=== PATIENT | female | born 1960 | race Caucasian/White ===

== ENCOUNTER → 2016-11-12 | Outpatient (CLI) | payer OTHER ==
[~2016-11-12] MED LIST: ABILIFY1 MG/ML PO; ABILIFY30 MG PO; ASPIRIN81 M1 PO; ATIVAN2 MG PO; BACTRIM DS 8001 TA1 PO; BACTROBAN OINT22 GM PO; BENTYL10 MG PO; BENTYL20 MG PO; BIAXIN500 MG PO; CARAFATE1 G1 PO; CEFTIN500 MG PO; CILOXAN 5 ML5 M1 OP; CILOXAN 5 ML5 M1 OT; CIPRO500 MG PO; CLARITIN10 MG PO; CLINDAMYCIN150 MG PO; CRESTOR10 MG PO; DIAZEPAM2 MG PO; DUONEB 3 MG/3 ML3 M1 NEB; EFFEXOR XR150 M1 PO; FLONASE 0.05% 121 EA NAS; FLUARIX IM; GOOD SENSE ALLE10 MG PO; LEVAQUIN750 M1 PO; LEVAQUIN750 MG PO; LEVOFLOXACIN500 MG PO; MEDROL DOSEPAK4 MG PO; METFORMIN HYDR500 M1 PO; MOTRIN800 MG PO; MUCINEX600 MG PO; NABUMETONE500 M1 PO; NAPROXEN500 M1 PO; OMEPRAZOLE D/R20 MG PO; OXYCODONE AND A1 T11 PO; PANTOPRAZOLE SO40 MG PO; PERCOCET 325 MG1 TA2 PO; PERCOCET 325 MG1 TA7 PO; PHENERGAN W/DM120 ML PO; PHENERGAN25 MG RC; PNEUMOVAX IM; PREDNICOT10 MG PO; PREDNISONE10 MG PO; PREDNISONE5 MG PO; PRILOSEC20 M1 PO; PROAIR HFA0.09 MG/AC INH; PROMETH W/ DEX480 ML PO; PROTONIX20 MG PO; PROTONIX40 MG PO; PROVENTIL0.09 MG/AC IH; PROVENTIL0.09 MG/AC INH; ROBAXIN750 MG PO; ROBITUSSIN AC 110 ML PO; SEPTRA DS 800 M1 TAB PO; SIMVASTATIN20 MG PO; SYNTHROID0.025 MG PO; SYNTHROID0.05 MG PO; TORADOL10 MG PO; TRAMADOL HCL50 MG PO; TRAZADONE HYDR100 MG PO; VALIUM10 MG PO; VIBRAMYCIN100 MG PO; VICODIN 5/500 505 MG PO; VITAMIN D2; XANAX1 MG PO; ZANTAC 150150 MG PO; ZESTRIL20 MG PO; ZITHROMAX Z PA250 MG PO; ZITHROMAX250 MG PO
[2016-11-12 15:32] LABS: BILIRUBIN NEGATIVE (NEGATIVE); BLOOD TRACE-LYSED (NEGATIVE); CLARITY CLEAR (CLEAR); COLOR YELLOW (YELLOW); GLUCOSE NEGATIVE (NEGATIVE); KETONE NEGATIVE (NEGATIVE); LEUKO ESTERASE 2+ (NEGATIVE); NITRITE NEGATIVE (NEGATIVE); PH 7.5 (5.0-9.0); UROBILINOGEN 0.2 E.U./dl (0.2-1.0)
[2016-11-12 15:42] LABS: BACTERIA 4+; RBC 0-2 rbc/hpf (0-2); WBC 21-30 wbc/hpf (0-5)
== END | disposition home or self-care (01) ==
LOC: US 11-05 13:00 → LAB 14:43 → US 15:00
PROVIDERS: Urology
DX: N39.0 Urinary tract infection, site not specified (principal); R32 Unspecified urinary incontinence

== ENCOUNTER 2017-04-02 06:08 | Inpatient (IN) | payer OTHER ==
[~2017-04-02] VITALS: Ht 167.6 cm; Wt 109.5 kg
--- NOTE | ~2017-04-02 | PR ---
[place], [place] PROGRESS NOTE NAME: RICHARDSON LOPEZ UNIT #: [id number] ROOM: 407 DOCTOR: ASIA SALAZAR MD BIRTHDATE: [birth year] DOS: 04/04/2017 SUBJECTIVE: The patient was seen at her bedside today, 04/04/2017, for followup of nonsustained ventricular tachycardia. She is a 56-year-old woman who presented to the hospital with recurrent respiratory distress and failure. On the monitor, she was noted to have frequent PVCs with couplets, triplets and 111 beat run of nonsustained ventricular tachycardia. We were asked to see her for further assessment. Thus far, she shows no signs of myocardial injury and her electrocardiogram shows no acute changes. PHYSICAL EXAMINATION: VITAL SIGNS: Her pulse is 76 and regular, blood pressure is 132/70. She weighs 109.5 kg and has a body mass index of 39. HEENT: Normocephalic and atraumatic. Extraocular muscles are intact. Sclerae are clear. Pupils are round and react to light. The oral mucosa is moist. Tongue is midline. NECK: Supple. She has no jugular distention. Carotids are full. I heard no bruits. She had no neck or supraclavicular masses, no thyromegaly. LUNGS: Respirations are unlabored. Her chest is clear to auscultation and percussion. She has no presacral edema. HEART: Has a regular rhythm. She has an S4 gallop, but no S3 or murmur. ABDOMEN: Benign. EXTREMITIES: Showed no edema. IMPRESSION: 1. Nonsustained ventricular tachycardia. 2. Acute exacerbation of chronic obstructive lung disease. 3. Hyperglycemia. 4. Hypertension. 5. Hyperlipidemia. PLAN: For now, we will continue to observe her as her lung problems are being treated. She was once again advised to quit smoking. We will continue to follow her intermittently in the hospital. Once she has fully stabilized from a pulmonary standpoint, we will plan on a pharmacologic stress test in order to determine if she has an ischemic substrate for her arrhythmias. I thank Dr. Dumont for asking our advice regarding management of this patient. [place], [place] PROGRESS NOTE NAME: RICHARDSON LOPEZ UNIT #: [id number] ROOM: 407 DOCTOR: ASIA SALAZAR MD BIRTHDATE: [birth year] ASIA SALAZAR MD CM:PNTRANS [id number] ASIA SALAZAR MD 04/04/172236 interface
--- NOTE | ~2017-04-02 | PR ---
[place], [place] PROGRESS NOTE [id number] UNIT #: [id number] ROOM: 407 DOCTOR: ASIA SALAZAR MD BIRTHDATE: [birth year] DOS: 04/05/2017 SUBJECTIVE: The patient was seen at her bedside today 04/05/2017 for followup of an episode of nonsustained ventricular tachycardia. She is a 56-year-old woman with multiple coronary risk factors who presented to the hospital with respiratory distress and respiratory failure. On the monitor, she was noted to have frequent PVCs with couplets, triplets and an 11-beat run of nonsustained ventricular tachycardia. We were asked to see her for further assessment. She showed no signs of myocardial injury and her electrocardiogram showed no acute ST changes. Her breathing has improved, but she is still wheezing. She still has a significant cough. PHYSICAL EXAMINATION: VITAL SIGNS: Today, her pulse is 68 and regular with frequent premature beats. Blood pressure is 96/74. She is afebrile, pulse oximetry is 100 on supplemental oxygen. She weighs 109.5 kilograms with a body mass index of 39. HEENT: Normocephalic and atraumatic. Extraocular muscles are intact. Sclerae are clear. Pupils are equal, round and react to light. The oral mucosa is moist. Tongue is midline. NECK: Supple. She has no jugular distention. Carotids are full. LUNGS: Respirations are unlabored. She does have scattered wheezes, but no rales. She has no presacral edema. HEART: Has a regular rhythm with frequent premature contractions. She has a fourth heart sound, but no third heart sound or murmur. ABDOMEN: Soft and normally active. EXTREMITIES: Showed no edema. IMPRESSIONS: 1. Nonsustained ventricular tachycardia. 2. Acute exacerbation of chronic obstructive lung disease. 3. Hyperglycemia. 4. Hypertension. 5. Hyperlipidemia. PLAN: We will proceed with an echocardiogram to rule out structural heart disease. Once she is feeling better from a cardiac standpoint, we will arrange for her to have a pharmacologic stress test. This may be done as an outpatient or later during this hospitalization if needed. I thank Dr. Dumont for asking our advice regarding the patient's care. [place], [place] PROGRESS NOTE NAME: RICHARDSON LOPEZ UNIT #: [id number] ROOM: 407 DOCTOR: ASIA SALAZAR MD BIRTHDATE: [birth year] ASIA SALAZAR MD CM:PNTRANS 1626 20 ASIA SALAZAR MD 04/05/172220 interface
--- NOTE | ~2017-04-02 | PR ---
[place], [place] PROGRESS NOTE NAME: RICHARDSON LOPEZ [facility] #: [id number] UNIT #: [id number] ROOM: 407 DOCTOR: CHEMA HERMOSILLO MD BIRTHDATE: [birth year] DOS: SUBJECTIVE: The patient has been admitted to the hospital with COPD with acute exacerbation with cough, difficulty breathing and had fever and chills and she is slowly improving better, but she did not have bowel movement for 4 days, so we are going to give her some Yanique-Colace. If it does not work, I will give her some Fleet enema. The patient's cough is improving. Her blood culture and sensitivity did not grow any bacteria. Her comprehensive metabolic profile showed glucose 277, BUN 19, creatinine 1.18, GFR 48, indicating some renal failure and also her blood sugar is elevated due to her getting corticoids IV. Her CBC today showed white count 80,100, hemoglobin 10, hematocrit 32.4. Her chest is still having increased expiration with few wheezing and rhonchi and crepitus. OBJECTIVE: VITAL SIGNS: Her blood pressure is 124/60, pulse 63, respirations 20, temperature 97.9. ABDOMEN: Soft, but no tenderness. CHEMA HERMOSILLO MD CM:PNBELLA 1218 1735 CHEMA HERMOSILLO MD 04/05/17 1735 interface
--- NOTE | ~2017-04-02 | PR ---
[place], [place] PROGRESS NOTE NAME: RICHARDSON LOPEZ [facility] #: [id number] UNIT #: [id number] ROOM: 407 DOCTOR: CHEMA HERMOSILLO MD BIRTHDATE: [birth year] DOS: SUBJECTIVE: The patient has been admitted to the hospital with history of COPD with acute exacerbation and cough with difficulty breathing, had fever and chills. She is also having increased frequency of urination with dysuria and some urinary incontinency. Her chest x-ray shows sticky perihilar opacities with mild peribronchial cuffing, indicating pneumonitis. The patient has past history of bronchitis, chest pain, chronic kidney disease, depression, diabetes mellitus, elevated C-reactive protein, GERD syndrome, hyperlipidemia, hypertension, pulmonary nodule and stress incontinence. The patient is still having persisting cough and some incontinence of urine. Her blood culture and sensitivity did not grow any bacteria. Her comprehensive metabolic profile showed glucose 277, ____ GFR 48, chloride 108, other values are normal. Her CBC today showed white count ____ hemoglobin 10, hematocrit 32.4. OBJECTIVE: VITAL SIGNS: Her blood pressure is 132/70, pulse 76, respirations 18, temperature 97.5. CHEST: Having bilateral wheezing with some crepitation. HEART: Regular. ABDOMEN: Soft. CHEMA HERMOSILLO MD CM:PNTRANS 1434 41 CHEMA HERMOSILLO MD 04/04/172140 interface
--- NOTE | ~2017-04-02 | ST ---
[place], [place] EXERCISE STRESS TEST REPORT NAME: RICHARDSON LOPEZ [facility] #: [id number] UNIT #: [id number] ROOM: 407 DOCTOR: MARIE ROBERTSON MD BIRTHDATE: [birth year] DOS: 04/07/2017 LEXISCAN STRESS EKG. REFERRING PHYSICIAN: Dr. Dumont. INDICATION: Cardiomyopathy, nonsustained ventricular tachycardia and shortness of breath. FINDINGS: The patient underwent standard protocol Lexiscan stress EKG. Baseline EKG showed normal sinus rhythm, baseline heart rate is 69 beats per minute with a blood pressure of 142/86 and her peak heart rate was 111 with a blood pressure of 144/80. The patient had no EKG changes. The patient had no symptoms to suggest angina. There were no arrhythmias aside from frequent unifocal PVCs. SUMMARY OF FINDINGS: Unremarkable Lexiscan stress EKG. Please see separate report for perfusion scan results. MARIE ROBERTSON MD CM:STRESS:EXERCISE STRESS TEST REPORT [id number] 1349 MARIE ROBERTSON MD
[~2017-04-02 06:08] MED LIST changes: +ABILIFY10 MG PO; -ABILIFY30 MG PO; -SYNTHROID0.05 MG PO; +Synthroid,Lev100 MCG PO; -ZESTRIL20 MG PO; +ZESTRIL30 M3 PO
[2017-04-02 07:19] LABS: BASO % 0.5 % (0.0-1.0); EOS # 0.6 10*3/uL (0.0-0.4); EOS % 7.1 % (1.0-4.0); HEMATOCRIT 38.3 % (37.0-47.0); HEMOGLOBIN 11.9 g/dl (12.0-16.0); LYMPH # 2.6 10*3/uL (1.3-4.4); LYMPH % 31.6 % (27.0-41.0); MEAN CELL VOLUME 90.1 fl (81.0-99.0); MEAN CORPUSCULAR HGB CONC 31.1 g/dl (33.0-37.0); MEAN PLATELET VOLUME 11.6 fl (9.6-12.3); MONO # 0.5 10*3/uL (0.1-1.0); MONO % 6.6 % (3.0-9.0); NEUT # 4.4 10*3/uL (2.3-7.9); NEUT % 53.8 % (47.0-73.0); PLATELET COUNT AUTOMATED 173 10*3/uL (130-400); RED BLOOD COUNT 4.25 10*6/uL (4.10-5.10); RED CELL DISTRI WIDTH 14.8 % (0-14.5); WHITE BLOOD COUNT 8.1 10*3/uL (4.8-10.8)
[2017-04-02 07:26] VITALS: BP 113/62
[2017-04-02 07:27] LABS: INTERNATIONAL NORM RATIO 1.1 (2.0-3.5)
[2017-04-02 07:37] LABS: ALBUMIN 3.5 gm/dl (3.1-4.5); ALKALINE PHOSPHATASE 106 U/L (45-117); BUN 10 mg/dl (7-24); CHLORIDE 105 mmol/L (98-107); CREATININE 1.14 mg/dL (0.55-1.02); POTASSIUM 3.7 mmol/L (3.5-5.1); SGOT/AST 11 IU/L (3-35); SGPT/ALT 25 U/L (12-78); SODIUM 141 mmol/L (136-145)
[2017-04-02 07:38] LABS: TROPONIN I < 0.015 ng/ml (<0.045)
[2017-04-02 07:53] VITALS: BP 133/70
[2017-04-02 08:02] LABS: BILIRUBIN NEGATIVE (NEGATIVE); BLOOD NEGATIVE (NEGATIVE); CLARITY CLEAR (CLEAR); COLOR YELLOW (YELLOW); GLUCOSE NEGATIVE (NEGATIVE); KETONE NEGATIVE (NEGATIVE); LEUKO ESTERASE NEGATIVE (NEGATIVE); NITRITE NEGATIVE (NEGATIVE); SPECIFIC GRAVITY 1.025 (1.005-1.030); UROBILINOGEN 0.2 E.U./dl (0.2-1.0)
[2017-04-02 08:12] LABS: EPITHELIAL CELLS 16-20; MUCOUS 2+; RBC 0-2 rbc/hpf (0-2)
[2017-04-02 09:40] VITALS: BP 152/56
[2017-04-02 10:00] VITALS: BP 152/56
[2017-04-02] MEDS ORDERED: MONTELUKAST SOD10 MG PO (10:49)
[2017-04-02] MEDS ORDERED: DITROPAN XL5 MG PO (10:52)
[2017-04-02 16:00] VITALS: BP 135/58
[2017-04-02 20:00] VITALS: BP 113/45
[2017-04-03] VITALS: BP 137/51
[2017-04-03 07:36] LABS: ALBUMIN 3.2 gm/dl (3.1-4.5); POTASSIUM 3.9 mmol/L (3.5-5.1)
[2017-04-03 07:37] LABS: HEMATOCRIT 34.6 % (37.0-47.0); HEMOGLOBIN 10.6 g/dl (12.0-16.0); MEAN CELL VOLUME 91.8 fl (81.0-99.0); MEAN CORPUSCULAR HGB 28.1 pg (27.0-31.0); MEAN CORPUSCULAR HGB CONC 30.6 g/dl (33.0-37.0); MEAN PLATELET VOLUME 12.3 fl (9.6-12.3); PLATELET COUNT AUTOMATED 184 10*3/uL (130-400); RED BLOOD COUNT 3.77 10*6/uL (4.10-5.10); WHITE BLOOD COUNT 14.3 10*3/uL (4.8-10.8)
[2017-04-03 07:40] LABS: CREATININE 1.17 mg/dL (0.55-1.02); TOTAL PROTEIN 6.5 gm/dL (6.4-8.2)
[2017-04-03 07:58] LABS: TOTAL CELLS COUNTED 100 #CELLS
[2017-04-03 07:59] LABS: PLATELET SUFFICIENCY NORMAL (NORMAL)
[2017-04-03 08:00] VITALS: BP 138/59
[2017-04-03 12:00] VITALS: BP 110/42
[2017-04-03] MEDS ORDERED: VALIUM10 MG PO (15:35)
[2017-04-03 16:00] VITALS: BP 125/65
[2017-04-03] MEDS ORDERED: VITAMIN D32000 UNI1 PO (16:28)
[2017-04-03] MEDS ORDERED: PROAIR HFA8.5 GM INH (16:40)
[2017-04-03 20:00] VITALS: BP 147/76
[2017-04-04] VITALS: BP 142/74
[2017-04-04 07:24] LABS: BASO % 0.2 % (0.0-1.0); EOS % 0.1 % (1.0-4.0); HEMATOCRIT 32.4 % (37.0-47.0); LYMPH # 1.1 10*3/uL (1.3-4.4); LYMPH % 6.1 % (27.0-41.0); MEAN CELL VOLUME 93.1 fl (81.0-99.0); MEAN CORPUSCULAR HGB 28.7 pg (27.0-31.0); MEAN CORPUSCULAR HGB CONC 30.9 g/dl (33.0-37.0); MONO # 0.5 10*3/uL (0.1-1.0); MONO % 2.9 % (3.0-9.0); NEUT # 16.2 10*3/uL (2.3-7.9); NEUT % 89.1 % (47.0-73.0); PLATELET COUNT AUTOMATED 200 10*3/uL (130-400); RED BLOOD COUNT 3.48 10*6/uL (4.10-5.10); RED CELL DISTRI WIDTH 15.7 % (0-14.5); WHITE BLOOD COUNT 18.1 10*3/uL (4.8-10.8)
[2017-04-04 07:48] LABS: ALBUMIN 3.3 gm/dl (3.1-4.5); CREATININE 1.18 mg/dL (0.55-1.02); POTASSIUM 4.3 mmol/L (3.5-5.1); TOTAL PROTEIN 6.4 gm/dL (6.4-8.2)
[2017-04-04 08:00] VITALS: BP 114/50
[2017-04-04 12:00] VITALS: BP 132/70
[2017-04-04 16:52] VITALS: BP 105/63
[2017-04-04 20:36] VITALS: BP 114/42
[2017-04-05] VITALS: BP 127/61
[2017-04-05 08:00] VITALS: BP 124/60
[2017-04-05 12:00] VITALS: BP 96/74
[2017-04-05 16:00] VITALS: BP 127/58
[2017-04-05 20:00] VITALS: BP 141/83
[2017-04-06] VITALS: BP 135/73
[2017-04-06 07:22] LABS: HEMATOCRIT 33.4 % (37.0-47.0); HEMOGLOBIN 10.5 g/dl (12.0-16.0); MEAN CELL VOLUME 90.5 fl (81.0-99.0); MEAN CORPUSCULAR HGB 28.5 pg (27.0-31.0); MEAN CORPUSCULAR HGB CONC 31.4 g/dl (33.0-37.0); MEAN PLATELET VOLUME 11.6 fl (9.6-12.3); NUCLEATED RED BLOOD CELL 0.1 10*3/uL (0.0-0.0); NUCLEATED RED BLOOD CELL 0.5 % (0.0-0.0); PLATELET COUNT AUTOMATED 193 10*3/uL (130-400); RED BLOOD COUNT 3.69 10*6/uL (4.10-5.10); WHITE BLOOD COUNT 13.1 10*3/uL (4.8-10.8)
[2017-04-06 07:34] LABS: BUN 23 mg/dl (7-24); CHLORIDE 104 mmol/L (98-107); POTASSIUM 4.2 mmol/L (3.5-5.1); SODIUM 139 mmol/L (136-145)
[2017-04-06 07:49] LABS: TOTAL CELLS COUNTED 100 #CELLS
[2017-04-06 07:50] LABS: PLATELET SUFFICIENCY NORMAL (NORMAL)
[2017-04-06 08:00] VITALS: BP 141/67
[2017-04-06 13:00] VITALS: BP 136/89
[2017-04-06 16:00] VITALS: BP 156/75
[2017-04-06 20:00] VITALS: BP 135/57
[2017-04-07] VITALS: BP 128/54
[2017-04-07 05:55] LABS: BUN 22 mg/dl (7-24); CHLORIDE 101 mmol/L (98-107); CREATININE 1.13 mg/dL (0.55-1.02); POTASSIUM 4.1 mmol/L (3.5-5.1); SODIUM 138 mmol/L (136-145)
[2017-04-07 06:41] LABS: HEMATOCRIT 34.3 % (37.0-47.0); MEAN CELL VOLUME 89.1 fl (81.0-99.0); MEAN CORPUSCULAR HGB 28.6 pg (27.0-31.0); MEAN CORPUSCULAR HGB CONC 32.1 g/dl (33.0-37.0); MEAN PLATELET VOLUME 11.8 fl (9.6-12.3); NUCLEATED RED BLOOD CELL 0.1 10*3/uL (0.0-0.0); NUCLEATED RED BLOOD CELL 0.5 % (0.0-0.0); PLATELET COUNT AUTOMATED 198 10*3/uL (130-400); RED BLOOD COUNT 3.85 10*6/uL (4.10-5.10); WHITE BLOOD COUNT 10.5 10*3/uL (4.8-10.8)
[2017-04-07 07:10] LABS: TOTAL CELLS COUNTED 100 #CELLS
[2017-04-07 07:11] LABS: PLATELET SUFFICIENCY NORMAL (NORMAL)
[2017-04-07 08:00] VITALS: BP 151/76
[2017-04-07 16:00] VITALS: BP 121/56
[2017-04-07] MEDS ORDERED: PROAIR HFA8.5 GM INH (17:48)
[2017-04-07] MEDS ORDERED: MIRALAX POWDER17 G1 PO (17:48)
[2017-04-07] MEDS ORDERED: METOPROLOL SUCC25 M2 PO (17:48)
[2017-04-07] MEDS ORDERED: OXYBUTYNIN CHLOR5 MG PO (17:48)
[2017-04-07] MEDS ORDERED: ALDACTONE25 MG PO (17:48)
[2017-04-07] MEDS ORDERED: Solu-Medrol IV (17:48)
[2017-04-07] MEDS ORDERED: [UNRECOGNIZED DRUG - OTHER] MC (17:52)
[2017-04-07 20:00] VITALS: BP 127/65
[2017-04-08] VITALS: BP 122/55
[2017-04-08 06:51] LABS: BUN 24 mg/dl (7-24); CHLORIDE 100 mmol/L (98-107); CREATININE 1.08 mg/dL (0.55-1.02); POTASSIUM 4.4 mmol/L (3.5-5.1); SODIUM 136 mmol/L (136-145)
== END 2017-04-08 08:24 | disposition short-term general hospital (02) | DRG 682 ==
LOC: ED 06:08 → EDHOLD 08:28 → 4E 08:28
PROVIDERS: Emergency Medicine Emergency Medical Services; Family Medicine; Internal Medicine; Internal Medicine Cardiovascular Disease
PROC: 4A02XM4 Measurement of Cardiac Total Activity, External Approach (ICD-10-PCS; principal; 2017-04-07)
PROC: 3E073KZ Introduction of Other Diagnostic Substance into Coronary Artery, Percutaneous Approach (ICD-10-PCS; 2017-04-07)
DX: N17.9 Acute kidney failure, unspecified (principal); J18.9 Pneumonia, unspecified organism; I47.2 Ventricular tachycardia; E11.22 Type 2 diabetes mellitus with diabetic chronic kidney disease; J44.0 Chronic obstructive pulmonary disease with (acute) lower respiratory infection; E87.2 Acidosis; E44.1 Mild protein-calorie malnutrition; J44.1 Chronic obstructive pulmonary disease with (acute) exacerbation; E11.69 Type 2 diabetes mellitus with other specified complication; N18.3 Chronic kidney disease, stage 3 (moderate); E11.65 Type 2 diabetes mellitus with hyperglycemia; K21.9 Gastro-esophageal reflux disease without esophagitis; D64.9 Anemia, unspecified; E78.5 Hyperlipidemia, unspecified; F41.9 Anxiety disorder, unspecified; F32.9 Major depressive disorder, single episode, unspecified; E03.9 Hypothyroidism, unspecified; F17.210 Nicotine dependence, cigarettes, uncomplicated; N39.3 Stress incontinence (female) (male); R93.1 Abnormal findings on diagnostic imaging of heart and coronary circulation; D72.825 Bandemia; I13.10 Hypertensive heart and chronic kidney disease without heart failure, with stage 1 through stage 4 chronic kidney disease, or unspecified chronic kidney disease; I25.10 Atherosclerotic heart disease of native coronary artery without angina pectoris; K59.00 Constipation, unspecified; Z83.3 Family history of diabetes mellitus; Z82.49 Family history of ischemic heart disease and other diseases of the circulatory system; Z84.89 Family history of other specified conditions; Z88.0 Allergy status to penicillin; Z88.8 Allergy status to other drugs, medicaments and biological substances; Z79.52 Long term (current) use of systemic steroids; Z79.899 Other long term (current) drug therapy; Z68.38 Body mass index [BMI] 38.0-38.9, adult

== ENCOUNTER 2017-04-11 10:40 | Inpatient (IN) | payer OTHER ==
[~2017-04-11] VITALS: Ht 167.6 cm; Wt 106.4 kg
--- NOTE | ~2017-04-11 | WRIGHTHP ---
[place], [place] PATIENT HISTORY AND PHYSICAL EXAM NAME: RICHARDSON LOPEZ [facility] #: [id number] UNIT #: [id number] ROOM: 411 DOCTOR: CHEMA HERMOSILLO MD BIRTHDATE: [birth year] DOS: 04/11/2017 HISTORY OF PRESENT ILLNESS: The patient has been admitted to hospital from Emergency Department today as she was feeling very weak and dizzy and was unable to walk and was feeling very drowsy. The patient had cardiac catheterization done on Thursday and since then she has had progressively increasing difficulty in breathing. The patient had cardiac catheterization done in [facility]. The patient was only recently discharged from the hospital when she was admitted with chest pain and also had pneumonia. PAST MEDICAL HISTORY: Bronchitis, coronary artery disease, chest pain, chronic kidney failure, COPD with acute exacerbation, depression with anxiety, diabetes, elevated C-reactive protein, eosinophilia, GERD syndrome, hyperglycemia, hyperlipidemia, hypertension, lactic acidosis, leukocytosis, left ventricular hypertrophy, pneumonia and pulmonary nodules which is not malignant and also having stress incontinence and ventricular tachycardia. The patient has history of cardiac catheterization done recently. PAST SURGICAL HISTORY: Hysterectomy, , appendectomy, twisted intestine. SOCIAL HISTORY: The patient smokes 1 pack of cigarettes daily for the last 30 years. She denies drinking any alcohol or using any drugs. FAMILY HISTORY: Positive for diabetes, hyperlipidemia, hypertension and also history of cancer, diabetes mellitus in the family. PHYSICAL EXAMINATION: GENERAL: The patient is conscious, but somewhat feeling weak and drowsy and does not want to talk too much. VITAL SIGNS: Her blood pressure is 102/60, pulse 74, respirations 18, temperature 98.8. HEENT: Unremarkable. No glandular enlargement. NECK: Trachea central. Neck veins are not distended. HEART: Regular. No murmur. LUNGS: Clear. No creps or rhonchi. ABDOMEN: Soft. Liver and spleen not palpable. No area of tenderness. No mass palpable. EXTREMITIES: No edema of legs. NEUROLOGIC: The patient does not have any localized neurological deficit, but it looks like the patient has postural hypotension, whenever she tries get out of bed and tries to walk, she becomes weak and dizzy and feels like passing out. LABORATORY DATA: Her chest x-ray done in Emergency shows no acute change. Comprehensive metabolic profile shows glucose 173, BUN 17, creatinine 1.2, GFR 47 indicating chronic renal failure, calcium 8.4, magnesium 2.3, other values are normal. Troponin level is normal. CBC shows white count 30,000, hemoglobin 14.7, hematocrit 46.7, 72% neutrophils, 22% lymphocyte. Rapid influenza test is negative. Protime is 10.6. Lactic acid is 2.5, which the patient has history of this before. [place], [place] PATIENT HISTORY AND PHYSICAL EXAM [facility]: [id number] UNIT #: [id number] ROOM: 411 DOCTOR: CHEMA HERMOSILLO MD BIRTHDATE: [birth year] DIAGNOSES: Postural hypotension with coronary heart disease with history of ASHD, hypertension, chronic obstructive pulmonary disease with acute exercitation with pneumonitis, lactic acidosis in the past, eosinophilia, renal failure, hyperglycemia, diabetes mellitus, gastroesophageal reflux disease syndrome, anxiety with depression. PLAN OF TREATMENT: The patient will be observed very closely and will be monitored and her home medications will be adjusted. I will try to hold her lisinopril, which the patient has been taking and bring blood pressure up, also the patient is on Aldactone. We will hold it also for the time being and she will continue taking her metoprolol and she has been taking Valium 10 mg twice daily. I am going to cut it down also to 5 mg at bedtime and only on p.r.n. basis and watch her closely. CHEMA HERMOSILLO MD CM:HISPHYS:PATIENT HISTORY AND PHYSICAL EXAMINATION 1325 1451 CHEMA HERMOSILLO MD 04/11/17 1016 interface
--- NOTE | ~2017-04-11 | PR ---
[place], [place] PROGRESS NOTE NAME: RICHARDSON LOPEZ [facility] #: [id number] UNIT #: [id number] ROOM: 411 DOCTOR: CHEMA HERMOSILLO MD BIRTHDATE: [birth year] DOS: SUBJECTIVE: The patient has been admitted to the hospital with postural hypotension, dizziness and feeling of marked ____ fall down with also overdose of some Valium. She is feeling much better today. She is alert and oriented, not in any distress. Her chest x-ray is normal. Her lactic acid is 1.5, which is normal. OBJECTIVE: VITAL SIGNS: Her blood pressure is 107/60, pulse 67, respirations 20, temperature 98.3. CARDIOVASCULAR: Irregular. CHEST: Clear. ABDOMEN: Soft. The patient is feeling much better, much improved. ____. CHEMA HERMOSILLO MD CM:PNTRANS 1418 2115 CHEMA HERMOSILLO MD 04/13/17 0329 interface
[~2017-04-11 10:40] MED LIST changes: +ALDACTONE25 MG PO; +DITROPAN XL5 MG PO; +METOPROLOL SUCC25 M2 PO; +MIRALAX POWDER17 G1 PO; +MONTELUKAST SOD10 MG PO; +OXYBUTYNIN CHLOR5 MG PO; +PROAIR HFA8.5 GM INH; +Solu-Medrol IV; +VITAMIN D32000 UNI1 PO; +[UNRECOGNIZED DRUG - OTHER] MC
[2017-04-11 10:46] VITALS: BP 116/79
[2017-04-11 11:22] LABS: HEMATOCRIT 46.7 % (37.0-47.0); HEMOGLOBIN 14.7 g/dl (12.0-16.0); MEAN CELL VOLUME 89.5 fl (81.0-99.0); MEAN CORPUSCULAR HGB 28.2 pg (27.0-31.0); MEAN CORPUSCULAR HGB CONC 31.5 g/dl (33.0-37.0); PLATELET COUNT AUTOMATED 188 10*3/uL (130-400); RED BLOOD COUNT 5.22 10*6/uL (4.10-5.10); WHITE BLOOD COUNT 13.1 10*3/uL (4.8-10.8)
[2017-04-11 11:29] LABS: ACT PARTIAL THROMBO TIME 21.2 SECONDS (20.8-31.5)
[2017-04-11 11:30] VITALS: BP 100/68
[2017-04-11 11:43] LABS: ALBUMIN 3.1 gm/dl (3.1-4.5); ALKALINE PHOSPHATASE 95 U/L (45-117); BUN 17 mg/dl (7-24); CHLORIDE 101 mmol/L (98-107); PLATELET SUFFICIENCY NORMAL (NORMAL); POTASSIUM 4.1 mmol/L (3.5-5.1); SGOT/AST 13 IU/L (3-35); SGPT/ALT 26 U/L (12-78); SODIUM 137 mmol/L (136-145); TOTAL CELLS COUNTED 100 #CELLS; TOTAL PROTEIN 6.8 gm/dL (6.4-8.2)
[2017-04-11 11:44] LABS: TROPONIN I < 0.015 ng/ml (<0.045)
[2017-04-11 12:35] VITALS: BP 91/67
[2017-04-11 13:14] VITALS: BP 102/60
[2017-04-11] MEDS ORDERED: OXYBUTYNIN5 MG PO (13:17)
[2017-04-11 16:00] VITALS: BP 119/68
[2017-04-11 20:00] VITALS: BP 130/74
[2017-04-12] VITALS: BP 99/59
[2017-04-12 08:32] VITALS: BP 108/66
[2017-04-12 12:14] VITALS: BP 107/60
[2017-04-12 16:00] VITALS: BP 128/76
[2017-04-12 20:00] VITALS: BP 104/58
[2017-04-13] VITALS: BP 105/65
[2017-04-13 08:00] VITALS: BP 102/60
[2017-04-13 12:00] VITALS: BP 109/77
[2017-04-13] MEDS ORDERED: REMEDY CALAZIME4 GM T (14:37)
[2017-04-13] MEDS ORDERED: ZESTRIL10 MG PO (14:37)
[2017-04-13] MEDS ORDERED: MIRALAX POWDER17 G1 PO (14:37)
[2017-04-13] MEDS ORDERED: DIAZEPAM5 MG PO (14:39)
[2017-04-13] MEDS ORDERED: PREDNISONE10 MG PO (15:11)
[2017-04-13] MEDS ORDERED: DOXYCYCLINE100 M3 PO (15:11)
[2017-04-13] MEDS ORDERED: GLIPIZIDE XL2.5 M1 PO (15:11)
[2017-04-13 16:00] VITALS: BP 103/59
== END 2017-04-13 18:03 | disposition home or self-care (01) | DRG 871 ==
LOC: ED 10:40 → 4E 12:13 → EDHOLD 12:13 → 4E 12:24
PROVIDERS: Nurse Practitioner Family
DX: A41.9 Sepsis, unspecified organism (principal); J18.9 Pneumonia, unspecified organism; E11.22 Type 2 diabetes mellitus with diabetic chronic kidney disease; N17.9 Acute kidney failure, unspecified; N18.3 Chronic kidney disease, stage 3 (moderate); I13.10 Hypertensive heart and chronic kidney disease without heart failure, with stage 1 through stage 4 chronic kidney disease, or unspecified chronic kidney disease; J44.1 Chronic obstructive pulmonary disease with (acute) exacerbation; E44.1 Mild protein-calorie malnutrition; J44.0 Chronic obstructive pulmonary disease with (acute) lower respiratory infection; Z68.37 Body mass index [BMI] 37.0-37.9, adult; Z79.899 Other long term (current) drug therapy; F41.0 Panic disorder [episodic paroxysmal anxiety]; I25.10 Atherosclerotic heart disease of native coronary artery without angina pectoris; D64.9 Anemia, unspecified; F17.210 Nicotine dependence, cigarettes, uncomplicated; E78.5 Hyperlipidemia, unspecified; K21.9 Gastro-esophageal reflux disease without esophagitis; E11.65 Type 2 diabetes mellitus with hyperglycemia; F41.8 Other specified anxiety disorders; R91.1 Solitary pulmonary nodule; R65.20 Severe sepsis without septic shock; G89.29 Other chronic pain; I95.1 Orthostatic hypotension; T42.4X1A Poisoning by benzodiazepines, accidental (unintentional), initial encounter; Z88.0 Allergy status to penicillin; Z88.1 Allergy status to other antibiotic agents; Z87.01 Personal history of pneumonia (recurrent); Z90.710 Acquired absence of both cervix and uterus; Z90.49 Acquired absence of other specified parts of digestive tract; Z83.3 Family history of diabetes mellitus; Z82.49 Family history of ischemic heart disease and other diseases of the circulatory system; Z83.49 Family history of other endocrine, nutritional and metabolic diseases; Z80.8 Family history of malignant neoplasm of other organs or systems; Z98.891 History of uterine scar from previous surgery; Y92.098 Other place in other non-institutional residence as the place of occurrence of the external cause

== ENCOUNTER → 2017-05-07 | Outpatient (CLI) | payer OTHER ==
[~2017-05-07] MED LIST changes: +DIAZEPAM5 MG PO; +DOXYCYCLINE100 M3 PO; +GLIPIZIDE XL2.5 M1 PO; +OXYBUTYNIN5 MG PO; +REMEDY CALAZIME4 GM T; +ZESTRIL10 MG PO
[2017-05-07 12:36] LABS: BASO % 0.6 % (0.0-1.0); EOS # 0.3 10*3/uL (0.0-0.4); EOS % 4.9 % (1.0-4.0); HEMATOCRIT 39.6 % (37.0-47.0); HEMOGLOBIN 12.4 g/dl (12.0-16.0); LYMPH # 0.8 10*3/uL (1.3-4.4); LYMPH % 15.4 % (27.0-41.0); MEAN CELL VOLUME 92.3 fl (81.0-99.0); MEAN CORPUSCULAR HGB 28.9 pg (27.0-31.0); MEAN CORPUSCULAR HGB CONC 31.3 g/dl (33.0-37.0); MEAN PLATELET VOLUME 11.3 fl (9.6-12.3); MONO # 0.5 10*3/uL (0.1-1.0); MONO % 10.4 % (3.0-9.0); NEUT # 3.5 10*3/uL (2.3-7.9); NEUT % 67.7 % (47.0-73.0); PLATELET COUNT AUTOMATED 189 10*3/uL (130-400); RED BLOOD COUNT 4.29 10*6/uL (4.10-5.10); RED CELL DISTRI WIDTH 16.4 % (0-14.5); WHITE BLOOD COUNT 5.1 10*3/uL (4.8-10.8)
== END | disposition home or self-care (01) ==
LOC: LAB 12:11
PROVIDERS: Internal Medicine
DX: J45.901 Unspecified asthma with (acute) exacerbation (principal)

== ENCOUNTER 2017-12-04 10:27 | Inpatient (IN) | payer OTHER ==
[~2017-12-04] VITALS: Ht 167.6 cm; Wt 110.4 kg
--- NOTE | ~2017-12-04 | EKG ---
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
--- NOTE | ~2017-12-04 | PR ---
[place], [place] PROGRESS NOTE [id number] UNIT #: [id number] ROOM: 506 DOCTOR: CHEMA HERMOSILLO MD BIRTHDATE: [birth year] DOS: SUBJECTIVE: The patient has been admitted with acute exacerbation of COPD with emphysema with tobacco abuse and cold and cough. She is feeling much better than yesterday and her breathing is better. There is no chest pain and no acute difficulty in breathing, no nausea, no vomiting, but the patient is feeling a little weak and her vitamin B12 and folic acid level is normal. Strep throat was negative. OBJECTIVE: VITAL SIGNS: Her blood pressure 114/48, pulse 65, respirations 20, temperature 98.4. HEART: Regular. LUNGS: Showing occasional wheezes. No crepitation. There is some increased expiration. ABDOMEN: Soft. Liver and spleen not palpable. No area of tenderness, no mass palpable. The patient is encouraged to sit and walk more that will help her to improve. CHEMA HERMOSILLO MD CM:PNTRANS 0745 20 CHEMA HERMOSILLO MD 12/06/171917 interface
--- NOTE | ~2017-12-04 | CON ---
[place], [place] REPORT OF CONSULTATION NAME: RICHARDSON LOPEZ [facility] #: [id number] UNIT #: [id number] ROOM: 506 DOCTOR: ALDO HALE MD BIRTHDATE: [birth year] DOS: 12/08/2017 CONSULTATION REQUESTED BY: Dr. Shane Dumont. REASON FOR CONSULTATION: Assess the patient for current acute exacerbation of COPD with cough. HISTORY OF PRESENT ILLNESS: This is a 56-year-old white female patient with reported history of COPD exacerbation and admitted to the hospital for further medical management since 12/04/2017: The patient was independently seen and examined, history was confirmed. Physical examination was performed and labs reviewed. Assessment and management today. Consultation personally made. Note done by the medical radiation therapist and was approved as well. She has been treated for acute exacerbation of COPD during this hospitalization with use of intravenous Solu-Medrol, bronchodilators, Mucinex and the antibiotics. The patient has been reporting symptoms of cough is one of the major symptoms that has not been resolving. She stated the cough could be better expectorate to be used as needed Robitussin-DM at home. Shortness of breath, cough, wheezing has been improving. She does complain of some symptoms of tightness of chest. There were no symptoms of chest pain or hemoptysis reported by the patient. REVIEW OF SYSTEMS: Already completed with patient improved by the medical radiation therapist. PAST MEDICAL HISTORY: 1. History of reported COPD. 2. Chronic dependency on the nicotine. 3. The patient with chronic kidney disease stage 3. 4. Coronary artery disease. 5. Type 2 diabetes mellitus. 6. Gastroesophageal reflux. 7. History of panic disorder. 8. History of pulmonary nodule. PAST SURGICAL HISTORY: Cardiac catheterization, in 04/2017, no coronary artery stents inserted. Hysterectomy, two C-sections and Appendectomy. SOCIAL HISTORY: The patient stating , has 2 children, lives at home. Tobacco use was noted from age of 22, 1-pack of cigarettes per day actively until hospitalization. FAMILY HISTORY: The patient's father 27 years old, complication motor vehicle accident. The mother at the age 64 years complication GI bleeding. HOME MEDICATIONS: At time of admission listed as use of: 1. Alogliptin. 2. Abilify. 3. Vitamin D. 4. Diazepam. [place], [place] REPORT OF CONSULTATION NAME: RICHARDSON LOPEZ UNIT #: [id number] ROOM: 506 DOCTOR: JUNIOR GUIDO MD,ALDO BIRTHDATE: [birth year] 5. Gabapentin. 6. Glipizide. 7. Levothyroxine. 8. Lisinopril. 9. Metoprolol succinate. 10. Omeprazole. 11. Simvastatin. 12. Effexor. 13. Oxybutynin chloride. 14. Albuterol. The patient breathing treatments. 15. Ventolin HFA inhaler p.r.n. use for symptoms of shortness of breath and management of COPD reported by the patient. DRUG ALLERGY HISTORY: Noted with allergy: 1. AZITHROMYCIN. 2. VICODIN. 3. SEROQUEL. 4. PENICILLINS. PHYSICAL EXAMINATION: GENERAL: This is a 56-year-old white female patient currently sitting on the bed without any acute distress. VITAL SIGNS: Height were recorded by the nursing staff on admission with height of 5 feet 6 inches, weight of 243 pounds, BMI 39.3. Vital signs which have been recorded shows temperature recorded normal. The patient last 3 days respiratory rate 18-20, heart rate 71-52, blood pressure 139/91, 137/55, pulse ox saturation at rest on room air 95% saturation. HEENT: Chronic obesity. NECK: Supple. Head was atraumatic. Decreased posterior pharyngeal space, high tongue base crowding soft tissue structures. CARDIOVASCULAR: S1, S2 audible. LUNGS: Moderate decreased breath sounds, mild diffuse bilateral expiratory wheezing without any crackles. ABDOMEN: Soft and obese. Bowel sounds present. EXTREMITIES: No edema, clubbing, cyanosis. MUSCULOSKELETAL: No deformities. SKIN: No lesions or rashes. CENTRAL NERVOUS SYSTEM: Cranial nerves 2-12 intact. LABORATORY DATA: Reviewed for this consultation. Blood culture reported negative since admission 12/04/2017. Creatinine today noted 1.15. CBC this morning, WBC count 17.2, hemoglobin 10.8, hematocrit 34.4 and platelet count was normal. Influenza A and B, nasal washing antigen negative on 12/04/2017. The radiology data reviewed. Chest x-ray that was done on 12/04/2017, 1 view was noted without any acute pulmonary infiltration. IMPRESSION: 1. The patient will be coming to the hospital noted with acute exacerbation of chronic obstructive pulmonary disease with chronic nicotine dependence, acute tracheobronchitis. [place], [place] REPORT OF CONSULTATION [facility]: [facility]OPE[id number] UNIT #: [id number] ROOM: 506 DOCTOR: JUNIOR GUIDO MD,ALDO BIRTHDATE: [birth year] 2. Leukocytosis, most likely induced by the corticosteroids. The patient was very likely cause. There was no evidence of acute pneumonia, acute bronchitis with suspected. 3. History of nicotine dependence. 4. Chronic obesity with possible consideration of obstructive sleep apnea disorder as well. PLAN OF MANAGEMENT: The patient will be started on the Robitussin-DM 10 mL q.i.d. Mucinex will be discontinued considered from discharge, desired on oral antibiotics, prednisone. Tobacco cessation was addressed with the patient with risks and the benefits. Outpatient assessment will be recommended post-discharge. Further assess and manage the COPD with appropriate medications as the patient only taking bronchodilators. Usual care, other supportive therapy, plan of management, care plan and therapies. Thank you, for allowing me to participate in the care of this patient. ALDO PACHECO MD CM:CONSTR:REPORT OF CONSULTATION 1028 12/15/17 0825 interface
--- NOTE | ~2017-12-04 | PR ---
[place], [place] PROGRESS NOTE NAME: RICHARDSON LOPEZ [facility] #: [id number] UNIT #: [id number] ROOM: 506 DOCTOR: CHEMA HERMOSILLO MD BIRTHDATE: [birth year] DOS: 12/05/2017 SUBJECTIVE: The patient has been admitted to hospital with acute ____ emphysema and tobacco abuse and she was feeling cold and cough for the last one week, progressively getting worse, and on the day of admission, the patient developed more difficulty in breathing and due to that reason, she needed to be admitted to hospital. The patient had increasing cough with a lot of sputum coming out and some chest discomfort also. No pain in the abdomen, no nausea, no vomiting. She is also having some runny nose and some headache also. Her chest x-ray is normal. The patient has past history of COPD, coronary artery disease, diabetes mellitus, GERD syndrome, hypertension, LVH, had cardiac catheterization in the past and the patient is still having a lot of cough and running of nose. LABORATORY DATA: Troponin level is normal. Her CBC showed white count 10,500, hemoglobin 10.9, hematocrit 36.1 indicating hypochromic anemia. Basic metabolic profile showed glucose 192, BUN 12, creatinine 1.04, GFR 55. Other values are normal. Lipid profile is normal. Hemoglobin is 7.5 and Rapid Strep is negative. PHYSICAL EXAMINATION: VITAL SIGNS: Her blood pressure today is 104/47, pulse 68, respirations 18, and temperature 97.7. CHEMA HERMOSILLO MD CM:PNTRANS 0824 2047 CHEMA HERMOSILLO MD 12/06/17 0428 interface
--- NOTE | ~2017-12-04 | CON ---
[place], [place] REPORT OF CONSULTATION NAME: RICHARDSON LOPEZ UNIT #: [id number] ROOM: 506 DOCTOR: DIVINA PATTERSON DO BIRTHDATE: [birth year] DOS: 12/08/2017 REQUESTING PHYSICIAN: Tommy Dumont MD REASON FOR CONSULTATION: COPD exacerbation. HISTORY OF PRESENT ILLNESS: The patient is a 56-year-old female who initially presented to the ED on 12/05/2017 due to shortness of breath, coughing and wheezing. The patient reports that these symptoms had been going on for a week. She states that her coughing was productive for green to yellow sputum. The patient reportedly does not use supplemental oxygen at home. Chest x-ray obtained in the ED showed a normal chest. The patient was subsequently admitted to the general medical floor with telemetry monitoring for treatment of an acute exacerbation of COPD. The patient was started on IV Solu-Medrol, guaifenesin, IV Levaquin and bronchodilator therapy. The Pulmonary Medicine Service was consulted for further management of the patient's acute exacerbation of COPD. PAST MEDICAL HISTORY: Includes coronary artery disease, stage 3 CKD, COPD, anxiety, depression, type 2 diabetes, gastroesophageal reflux disease, hypertension, stress incontinence, history of a pulmonary nodule, history of panic disorder, hyperlipidemia. PAST SURGICAL HISTORY: History of a cardiac catheterization, history of a total hysterectomy, history of an appendectomy, history of 2 prior sections, history of surgical repair of a left upper extremity fracture. SOCIAL HISTORY: The patient admits to smoking a pack a day for the past 30 years. She denies consumption of alcohol or any illicit drug use. FAMILY HISTORY: The patient's father reportedly at age 27 following a motor vehicle accident. The patient's mother reportedly at age 64 due to a GI bleed. ALLERGIES: Include allergy to PENICILLINS, to SEROQUEL, to HYDROCODONE, to ERYTHROMYCIN. CURRENT MEDICATIONS: Include lactulose 30 grams daily, subcutaneous Lovenox 40 mg daily, vitamin E 400 International Units once a day, Effexor extended release 300 mg once a day, omeprazole 20 mg once a day, metoprolol succinate 25 mg once a day, lisinopril 10 mg once a day, glipizide 5 mg daily, cholecalciferol 2000 International Units once a day, linagliptin 5 mg once a day, IV Levaquin 500 mg once a day, oxybutynin 5 mg 3 times a day, sliding scale insulin, simvastatin 20 mg before bed, gabapentin 100 mg 3 times a day, Valium 10 mg 3 times a day as needed for anxiety, Abilify 10 mg before bed, guaifenesin 1200 mg every 12 hours, DuoNeb treatments every 4 hours, IV Solu-Medrol 60 mg every 8 hours. REVIEW OF SYSTEMS: GENERAL: Denies fevers or chills. HEENT: Denies changes to hearing, eye pain, ear pain, or dysphagia. CARDIOVASCULAR: Denies chest pain, palpitations. Admits to diaphoresis. [place], [place] REPORT OF CONSULTATION NAME: RICHARDSON LOPEZ UNIT #: [id number] ROOM: [facility] DOCTOR: DIVINA PATTERSON DO BIRTHDATE: [birth year] RESPIRATORY: Admits to shortness of breath, dyspnea on exertion, cough productive for green to yellow sputum. Admits to wheezing. ABDOMEN: Denies nausea, vomiting, diarrhea, abdominal pain, melena or hematochezia. GENITOURINARY: Denies dysuria, hematuria, increased urinary frequency or urgency. NEUROLOGICAL: Admits to lightheadedness and dizziness. PSYCHOLOGICAL: Denies anxiety, depression or substance abuse. ENDOCRINE: Denies intolerance to cold or heat. SKIN: Denies any new rashes, ulcers, or lesions. PHYSICAL EXAMINATION: VITAL SIGNS: Show temperature at 98.3 degrees Fahrenheit, heart rate at 71, respiratory rate 18, blood pressure 139/91, pulse oximetry 95% on room air. GENERAL APPEARANCE: The patient was awake, alert, responsive, cooperative and in no acute distress. HEENT: Head was normocephalic and atraumatic. No lesions or ulcerations were noted to the eyes. NECK: Trachea appeared midline. HEART: Regular rate and rhythm was appreciated. Positive S1 and S2 sounds were heard. No murmurs, rubs or gallops were noted. The bilateral lower extremities were without pitting edema. PULMONARY: Expiratory wheezing was present on exam. No rhonchi or rales were heard. ABDOMEN: Soft, nontender to palpation. Bowel sounds were auscultated. The abdomen was nondistended. EXTREMITIES: The bilateral lower extremities were without pitting edema. No clubbing, cyanosis or erythema was noted. NEUROLOGIC: The patient was grossly without any focal neurologic deficits. Cranial nerves 2-12 were grossly intact. PSYCHOLOGICAL: The patient had a normal mood and normal affect. She was a fair historian. SKIN: Warm and dry without any induration or erythema. LABORATORY DATA: CBC from today shows white count at 17.2, hemoglobin at 10.8, hematocrit at 34.4, platelets at 265. Chemistries from today show creatinine at 1.15. MICROBIOLOGY: Blood cultures obtained on admission are negative for bacterial growth. Rapid flu swab was negative for flu A and flu B. Rapid Strep was also negative. IMAGING STUDIES: Chest x-ray obtained on 12/04/2017 showed normal findings. IMPRESSION: 1. Acute exacerbation of chronic obstructive pulmonary disease, resolving. 2. Leukocytosis, likely due to use of corticosteroids. 3. Normocytic anemia. 4. Lymphopenia. 5. History of tobacco abuse. [place], [place] REPORT OF CONSULTATION NAME: RICHARDSON LOPEZ Elijah UNIT #: [id number] ROOM: [facility] DOCTOR: DIVINA PATTERSON DO BIRTHDATE: [birth year] 6. Morbid obesity. 7. History of coronary artery disease. 8. History of stage 3 chronic kidney disease. 9. History of chronic obstructive pulmonary disease. 10. History of depression. 11. History of anxiety. 12. History of type 2 diabetes. 13. History of gastroesophageal reflux disease. 14. History of hypertension. 15. History of hyperlipidemia. PLAN OF MANAGEMENT: From a pulmonary standpoint, the patient is stable for discharge at this time. She can be discharged with a prednisone taper as well as an oral antibiotic. She will be started on 10 mL of Robitussin-DM 4 times a day. The patient was advised to discontinue her smoking and it is recommended that she follow up with Pulmonary Medicine on an outpatient basis following her discharge. Divina Patterson DO ALDO PACHECO MD CM:CONSTR:REPORT OF CONSULTATION 1537 12/08/17 1631 interface
[2017-12-04 10:27] VITALS: BP 122/74
[2017-12-04 10:52] LABS: BASO # 0.1 10*3/uL (0.0-0.1); BASO % 0.7 % (0.0-1.0); EOS # 0.3 10*3/uL (0.0-0.4); EOS % 3.8 % (1.0-4.0); HEMATOCRIT 35.5 % (37.0-47.0); HEMOGLOBIN 11.2 g/dl (12.0-16.0); LYMPH # 1.6 10*3/uL (1.3-4.4); LYMPH % 20.2 % (27.0-41.0); MEAN CELL VOLUME 90.1 fl (81.0-99.0); MEAN CORPUSCULAR HGB 28.4 pg (27.0-31.0); MEAN CORPUSCULAR HGB CONC 31.5 g/dl (33.0-37.0); MEAN PLATELET VOLUME 11.2 fl (9.6-12.3); MONO # 0.8 10*3/uL (0.1-1.0); MONO % 9.9 % (3.0-9.0); NEUT # 5.2 10*3/uL (2.3-7.9); PLATELET COUNT AUTOMATED 202 10*3/uL (130-400); RED BLOOD COUNT 3.94 10*6/uL (4.10-5.10); RED CELL DISTRI WIDTH 16.6 % (0-14.5); WHITE BLOOD COUNT 8.1 10*3/uL (4.8-10.8)
[2017-12-04 11:09] LABS: ALBUMIN 3.5 gm/dl (3.1-4.5); ALKALINE PHOSPHATASE 101 U/L (45-117); BUN 10 mg/dl (7-24); CHLORIDE 103 mmol/L (98-107); CREATININE 1.17 mg/dL (0.55-1.02); LIPASE 78 U/L (73-393); POTASSIUM 3.8 mmol/L (3.5-5.1); SGOT/AST 11 IU/L (3-35); SGPT/ALT 18 U/L (12-78); SODIUM 138 mmol/L (136-145); TOTAL PROTEIN 7.5 gm/dL (6.4-8.2)
[2017-12-04 11:10] LABS: TROPONIN I < 0.015 ng/ml (<0.045)
[2017-12-04 11:30] VITALS: BP 114/58
[2017-12-04 13:11] VITALS: BP 111/72
[2017-12-04 13:30] VITALS: BP 111/72
[2017-12-04] MEDS ORDERED: ALOGLIPTIN6.25 MG PO (14:06)
[2017-12-04] MEDS ORDERED: DITROPAN XL15 M1 PO (14:12)
[2017-12-04] MEDS ORDERED: VITAMIN E400 UNI3 PO (14:13)
[2017-12-04] MEDS ORDERED: GLIPIZIDE XL5 M1 PO (14:14)
[2017-12-04] MEDS ORDERED: GABAPENTIN100 M2 PO (14:17)
[2017-12-04] MEDS ORDERED: VALIUM10 MG PO (14:18)
[2017-12-04 16:00] VITALS: BP 119/66
[2017-12-04 20:00] VITALS: BP 122/63
[2017-12-05] VITALS: BP 104/47
[2017-12-05 06:20] LABS: BASO % 0.3 % (0.0-1.0); HEMATOCRIT 36.1 % (37.0-47.0); HEMOGLOBIN 10.9 g/dl (12.0-16.0); LYMPH % 9.9 % (27.0-41.0); MEAN CELL VOLUME 91.4 fl (81.0-99.0); MEAN CORPUSCULAR HGB 27.6 pg (27.0-31.0); MEAN CORPUSCULAR HGB CONC 30.2 g/dl (33.0-37.0); MEAN PLATELET VOLUME 11.4 fl (9.6-12.3); MONO # 0.4 10*3/uL (0.1-1.0); MONO % 4.2 % (3.0-9.0); NEUT # 8.7 10*3/uL (2.3-7.9); NEUT % 83.5 % (47.0-73.0); PLATELET COUNT AUTOMATED 234 10*3/uL (130-400); RED BLOOD COUNT 3.95 10*6/uL (4.10-5.10); RED CELL DISTRI WIDTH 16.4 % (0-14.5); WHITE BLOOD COUNT 10.5 10*3/uL (4.8-10.8)
[2017-12-05 06:28] LABS: BUN 12 mg/dl (7-24); CHLORIDE 107 mmol/L (98-107); CHOLESTEROL 153 mg/dL (<200); CREATININE 1.04 mg/dL (0.55-1.02); PHOSPHOROUS 2.6 mg/dL (2.5-4.9); POTASSIUM 4.1 mmol/L (3.5-5.1); SODIUM 140 mmol/L (136-145); TRIGLYCERIDES 68 mg/dl (<150); VLDL CHOLESTEROL 14 mg/dL (6-40)
[2017-12-05 06:37] LABS: FREE T4 0.53 ng/dl (0.76-1.46); HDL CHOLESTEROL 49 mg/dl (40-60); LDL CHOLESTEROL 90 mg/dL (9-159)
[2017-12-05 08:00] VITALS: BP 114/56
[2017-12-05 12:00] VITALS: BP 104/51
[2017-12-05 16:00] VITALS: BP 112/54
[2017-12-05 20:00] VITALS: BP 103/44
[2017-12-06] VITALS: BP 114/48
[2017-12-06 08:00] VITALS: BP 141/67
[2017-12-06 12:00] VITALS: BP 113/48
[2017-12-06 16:00] VITALS: BP 129/62
[2017-12-06 20:00] VITALS: BP 135/54
[2017-12-07] VITALS: BP 103/46
[2017-12-07 08:00] VITALS: BP 124/56
[2017-12-07 12:00] VITALS: BP 137/55
[2017-12-07 16:00] VITALS: BP 130/55
[2017-12-07 20:00] VITALS: BP 136/70
[2017-12-08] VITALS: BP 110/86
[2017-12-08 07:01] LABS: HEMATOCRIT 34.4 % (37.0-47.0); HEMOGLOBIN 10.8 g/dl (12.0-16.0); MEAN CELL VOLUME 89.1 fl (81.0-99.0); MEAN CORPUSCULAR HGB CONC 31.4 g/dl (33.0-37.0); MEAN PLATELET VOLUME 11.1 fl (9.6-12.3); NUCLEATED RED BLOOD CELL 0.2 % (0.0-0.0); PLATELET COUNT AUTOMATED 265 10*3/uL (130-400); RED BLOOD COUNT 3.86 10*6/uL (4.10-5.10); RED CELL DISTRI WIDTH 16.5 % (0-14.5); WHITE BLOOD COUNT 17.2 10*3/uL (4.8-10.8)
[2017-12-08 07:27] LABS: CREATININE 1.15 mg/dL (0.55-1.02)
[2017-12-08 07:33] LABS: PLATELET SUFFICIENCY NORMAL (NORMAL); TOTAL CELLS COUNTED 100 #CELLS
[2017-12-08 08:00] VITALS: BP 139/91
[2017-12-08] MEDS ORDERED: PREDNISONE10 MG PO (10:28)
[2017-12-08] MEDS ORDERED: DOXYCYCLINE100 M3 PO (10:28)
[2017-12-08] MEDS ORDERED: ROBITUSSIN5 ML PO (10:28)
== END 2017-12-08 10:40 | disposition home or self-care (01) | DRG 191 ==
LOC: ED 10:27 → 5E 12:03 → EDHOLD 12:03 → 5E 12:24
PROVIDERS: Nurse Practitioner Family; Student in an Organized Health Care Education/Training Program
DX: J44.1 Chronic obstructive pulmonary disease with (acute) exacerbation (principal); N17.9 Acute kidney failure, unspecified; D72.810 Lymphocytopenia; E83.41 Hypermagnesemia; Z71.6 Tobacco abuse counseling; E11.65 Type 2 diabetes mellitus with hyperglycemia; E66.01 Morbid (severe) obesity due to excess calories; F32.9 Major depressive disorder, single episode, unspecified; I12.9 Hypertensive chronic kidney disease with stage 1 through stage 4 chronic kidney disease, or unspecified chronic kidney disease; R00.1 Bradycardia, unspecified; D64.9 Anemia, unspecified; E78.5 Hyperlipidemia, unspecified; F41.8 Other specified anxiety disorders; K21.9 Gastro-esophageal reflux disease without esophagitis; N18.3 Chronic kidney disease, stage 3 (moderate); N39.3 Stress incontinence (female) (male); I25.10 Atherosclerotic heart disease of native coronary artery without angina pectoris; F17.210 Nicotine dependence, cigarettes, uncomplicated; Z88.0 Allergy status to penicillin; Z88.1 Allergy status to other antibiotic agents; Z88.8 Allergy status to other drugs, medicaments and biological substances; Z79.899 Other long term (current) drug therapy; Z90.710 Acquired absence of both cervix and uterus; Z90.49 Acquired absence of other specified parts of digestive tract; Z98.891 History of uterine scar from previous surgery; Z83.3 Family history of diabetes mellitus; Z79.84 Long term (current) use of oral hypoglycemic drugs; Z82.49 Family history of ischemic heart disease and other diseases of the circulatory system; Z80.9 Family history of malignant neoplasm, unspecified; Z84.89 Family history of other specified conditions; Z68.39 Body mass index [BMI] 39.0-39.9, adult

== ENCOUNTER → 2018-04-22 | Outpatient (CLI) | payer OTHER ==
[~2018-04-22] MED LIST changes: +ALOGLIPTIN6.25 MG PO; +CYCLOBENZAPRINE10 MG PO; +DELTASONE20 M1 PO; +DITROPAN XL15 M1 PO; +GABAPENTIN100 M2 PO; +GLIPIZIDE XL5 M1 PO; +Motrin,Rufen800 MG PO; +NORCO 10-325 T1 EACH PO; +ROBITUSSIN5 ML PO; +SENNA8.6 MG PO; +VENTOLIN 02.5 MG/3 M INH; +VESICARE10 MG PO; +VITAMIN E400 UNI3 PO; +ZOLPIDEM TART10 MG PO
== END | disposition home or self-care (01) ==
LOC: US 04-12 09:30
DX: K76.0 Fatty (change of) liver, not elsewhere classified (principal); K59.00 Constipation, unspecified

== ENCOUNTER 2018-06-15 16:07 | Inpatient (IN) | payer OTHER ==
[~2018-06-15] VITALS: Ht 167.6 cm; Wt 109.0 kg
--- NOTE | ~2018-06-15 | EKG ---
[place], [place] ELECTROCARDIOGRAM REPORT NAME: RICHARDSON LOPEZ UNIT #: [id number] ROOM: 503 DOCTOR: DAVIDA DRAFT REPORT BIRTHDATE: [birth year] [facility] Test Date: 2018-06-15 Test Time: 22:05:17 Pat Name: RICHARDSON LOPEZ Department: Room: 503 Gender: F Log Loader: Ayleen Dennis : 1960 Requested By: CAROLYN CARCAMO Order Number: [id number] Reading MD: Cody Castañeda Measurements Intervals [place] Rate: 61 P: -14 PA: 142 QRS: 55 QRSD: 99 T: 74 QT: 483 QTc: 487 Interpretive Statements Sinus rhythm Atrial premature complexes Borderline prolonged QT interval Baseline wander in lead(s) V5 Compared to ECG 12/04/2017 10:48:35 Atrial premature complex(es) now present T-wave abnormality now present Sinus arrhythmia no longer present Electronically Signed On 06-16-2018 11:04:06 PDT by Cody Castañeda CM:EKGRPT:ELECTROCARDIOGRAM REPORT 1104 CAROLYN HIGUERA DRAFT REPORT CAROLYN CARCAMO M.D.
--- NOTE | ~2018-06-15 | EKG ---
[place], [place] ELECTROCARDIOGRAM REPORT NAME: RICHARDSON LOPEZ UNIT #: [id number] ROOM: 503 DOCTOR: DAVIDA DRAFT REPORT BIRTHDATE: [birth year] [facility] Test Date: 2018-06-15 Test Time: 16:11:39 Pat Name: RICHARDSON LOPEZ Department: Room: 503 Gender: F Office Mail Clerk: : 1960 Requested By: CAROLYN CARCAMO Order Number: [id number] Reading MD: Cody Castañeda Measurements Intervals [place] Rate: 72 P: -8 MT: 140 QRS: 48 QRSD: 99 T: 38 QT: 457 QTc: 501 Interpretive Statements Sinus rhythm Borderline prolonged QT interval Compared to ECG 12/04/2017 10:48:35 Sinus arrhythmia no longer present Electronically Signed On 06-16-2018 11:00:06 PDT by Cody Castañeda CM:EKGRPT:ELECTROCARDIOGRAM REPORT 1611 1100 CAROLYN HIGUERA DRAFT REPORT CAROLYN CARCAMO M.D.
--- NOTE | ~2018-06-15 | EKG ---
[place], [place] ELECTROCARDIOGRAM REPORT NAME: RICHARDSON LOPEZ UNIT #: [id number] ROOM: 503 DOCTOR: DAVIDA DRAFT REPORT BIRTHDATE: [birth year] [facility] Test Date: 2018-06-15 Test Time: 19:23:14 Pat Name: RICHARDSON LOPEZ Department: Room: 503 Gender: F Awning Spreader: Ayleen Dennis : 1960 Requested By: CAROLYN CARCAMO Order Number: [id number] Reading MD: Cody Castañeda Measurements Intervals [place] Rate: 64 P: -20 HI: 147 QRS: 55 QRSD: 101 T: 62 QT: 487 QTc: 503 Interpretive Statements Sinus rhythm Borderline prolonged QT interval Baseline wander in lead(s) V6 Compared to ECG 12/04/2017 10:48:35 Sinus arrhythmia no longer present Electronically Signed On 06-16-2018 11:02:28 PDT by Cody Castañeda CM:EKGRPT:ELECTROCARDIOGRAM REPORT 22 1102 CAROLYN HIGUERA DRAFT REPORT CAROLYN CARCAMO M.D.
--- NOTE | ~2018-06-15 | CON ---
[place], [place] REPORT OF CONSULTATION NAME: [facility]ICHARDSON LOPEZ [id number] UNIT #: [id number] ROOM: 503 DOCTOR: KIRILL ENGLISH MD BIRTHDATE: [birth year] DOS: 06/16/2018 HISTORY OF PRESENT ILLNESS: This is a 57-year-old -[place] woman with a history of morbid obesity, diabetes mellitus, essential hypertension, hyperlipidemia, COPD, GERD, LVH by echocardiogram, and depression and anxiety. She smokes half a pack of cigarettes per day. She is not very active lady. She has had appendectomy, , heart catheterization done maybe 7-8 years ago, and the says nothing was done by vehicle safety inspector. She has had hysterectomy. She has had marked exertional shortness of breath even when she walks in the house or when she just goes to shrimp picker toys of her grandkids, she gets very short of breath. She also has chest pain occasionally. When she goes shop, she usually uses a chair to get around. She was admitted to the hospital with increasing shortness of breath, and also had left anterior chest pain. This feeling started rather rapidly and lasted for an hour or so and went away. She has very little discomfort in the left chest now. She had become quite sweaty at the time and was more short of breath, but she had no palpitation, did not have dizziness, no loss of consciousness. She has not had any swelling in the lower extremities. RESPIRATORY: She has cough and has been wheezing for some time. No runny nose or sore throat recently. FAMILY HISTORY: Both parents had coronary artery disease. SOCIAL HISTORY: She smokes half a pack of cigarettes per day. Lives with her . HOME MEDICATIONS: Alogliptin, Abilify, Valium, glipizide XL, Synthroid, Zestril, metoprolol succinate 25 mg daily, simvastatin 20 daily, Senna, VESIcare, and Effexor XR 300 daily. PHYSICAL EXAMINATION: GENERAL: This is a patient who is alert, oriented. She seems tired. She is rather sluggish looking, and no anemia or thyromegaly. She is not tachypneic. VITAL SIGNS: Pulse is regular at 60, blood pressure 133/71. NECK: JVP normal. AJR is negative. No bruit in the neck. HEART: There is no cardiomegaly, no murmurs are present. Pedal pulses are easily appreciated. EXTREMITIES: There is no edema in lower extremity. RESPIRATORY: She is mildly tachypneic. Percussion note is normal. Auscultation was moderately reduced breath sounds with inspiratory and expiratory rhonchi and some wheezing, some crackles are also present. ABDOMEN: Supple, nontender. No bruit or pulsatile mass. LABORATORY DATA: ECG shows normal sinus rhythm and essentially a normal pattern. Troponin I levels are normal. Hemoglobin 11.2 g/dL, platelets 147,000. BUN 13, creatinine 1.17, sodium 140, [place], [place] REPORT OF CONSULTATION NAME: RICHARDSON LOPEZ UNIT #: [id number] ROOM: [facility] DOCTOR: KIRILL ENGLISH MD BIRTHDATE: [birth year] potassium 4.0, and troponin I less than 0.05. Chest x-ray was unremarkable. She had a Lexiscan Cardiolite done in 03/2017 and was read as showing anteroseptal ischemia, and at that time, her LV ejection fraction was 45%. IMPRESSION: This patient probably has unstable angina. She has all the 5 major risk factors of coronary artery disease, and she is markedly tachypneic as well, which may be combination of underlying coronary artery disease and chronic obstructive pulmonary disease. I think the best approach would be to perform a selective coronary angiogram and LV gram in this patient to look for significant coronary artery disease. I discussed the risks and the benefits of this including CVA, [place], , hematoma, vascular injury, and renal insufficiency with her. She understood and would like to proceed. I discussed this case with Dr. Dumont and her nurse. KIRILL ENGLISH MD CM:CONSTR:REPORT OF CONSULTATION 1252 07/05/18 0932 interface
[~2018-06-15 16:07] MED LIST changes: -CYCLOBENZAPRINE10 MG PO; -DELTASONE20 M1 PO; -Motrin,Rufen800 MG PO; -NORCO 10-325 T1 EACH PO; -SENNA8.6 MG PO; -VENTOLIN 02.5 MG/3 M INH; -VESICARE10 MG PO; -ZOLPIDEM TART10 MG PO
[2018-06-15 16:09] VITALS: BP 122/84
[2018-06-15] MEDS ORDERED: CYCLOBENZAPRINE10 MG PO (16:19)
[2018-06-15 16:23] LABS: BASO # 0.1 10*3/uL (0.0-0.1); BASO % 0.7 % (0.0-1.0); EOS # 0.5 10*3/uL (0.0-0.4); EOS % 6.5 % (1.0-4.0); HEMATOCRIT 39.3 % (37.0-47.0); HEMOGLOBIN 12.3 g/dl (12.0-16.0); MEAN CORPUSCULAR HGB 29.4 pg (27.0-31.0); MEAN CORPUSCULAR HGB CONC 31.3 g/dl (33.0-37.0); MEAN PLATELET VOLUME 12.1 fl (9.6-12.3); MONO # 0.5 10*3/uL (0.1-1.0); NEUT # 4.3 10*3/uL (2.3-7.9); NEUT % 58.5 % (47.0-73.0); PLATELET COUNT AUTOMATED 184 10*3/uL (130-400); RED BLOOD COUNT 4.18 10*6/uL (4.10-5.10); RED CELL DISTRI WIDTH 14.8 % (0-14.5); WHITE BLOOD COUNT 7.3 10*3/uL (4.8-10.8)
[2018-06-15] MEDS ORDERED: NORCO 10-325 T1 EACH PO (16:23)
[2018-06-15] MEDS ORDERED: Motrin,Rufen800 MG PO (16:23)
[2018-06-15 16:32] VITALS: BP 122/84
[2018-06-15 16:32] LABS: ACT PARTIAL THROMBO TIME 27.8 SECONDS (20.8-31.5); INTERNATIONAL NORM RATIO 1.1 (2.0-3.5)
[2018-06-15 16:40] LABS: ALBUMIN 3.5 gm/dl (3.1-4.5); ALKALINE PHOSPHATASE 106 U/L (45-117); BUN 12 mg/dl (7-24); CHLORIDE 108 mmol/L (98-107); CREATININE 1.32 mg/dL (0.55-1.02); POTASSIUM 4.5 mmol/L (3.5-5.1); SGOT/AST 25 IU/L (3-35); SGPT/ALT 22 U/L (12-78); SODIUM 141 mmol/L (136-145); TOTAL PROTEIN 7.7 gm/dL (6.4-8.2)
[2018-06-15 16:47] LABS: TROPONIN I < 0.015 ng/ml (<0.045)
[2018-06-15 17:05] VITALS: BP 133/76
--- NOTE | 2018-06-15 17:53 | NUR ---
DR CARCAMO IN TO [place] WITH PT/FAMILY FOR ADDITIONAL PLAN OF CARE
[2018-06-15 18:45] VITALS: BP 132/81
--- NOTE | 2018-06-15 18:53 | NUR ---
DINNER TRAY PROVIDED.
[2018-06-15 19:48] VITALS: BP 132/81
[2018-06-15 20:00] VITALS: BP 133/71
--- NOTE | 2018-06-15 20:00 | NUR ---
Time: A 57 year old F admitted to 5E under services of DR. CIERA ALTMAN,[facility]. Pt. arrived via bed from ER. Chief complaint: CHEST PAIN. GAL DARLING
[2018-06-15] MEDS ORDERED: VESICARE10 MG PO (20:22)
[2018-06-15] MEDS ORDERED: ZOLPIDEM TART10 MG PO (20:27)
[2018-06-15] MEDS ORDERED: SENNA8.6 MG PO (20:29)
--- NOTE | 2018-06-15 22:00 | NUR ---
MADE AWARE OF NEW ADMISSION. ORDERS ARE TO CONTINUE NIGHT TIME MEDS AND PRN DUENEBS AT THIS TIME. AWAITING FURTHER ORDERS
--- NOTE | 2018-06-16 02:00 | NUR ---
MADE AWARE THAT PT STILL NEEDS BASIC ORERS. STATES THIS WILL BE DONE BY MORNING. WILL CONTINUE TO MONITOR PT,
[2018-06-16 06:57] LABS: BASO # 0.1 10*3/uL (0.0-0.1); BASO % 0.9 % (0.0-1.0); EOS # 0.4 10*3/uL (0.0-0.4); EOS % 5.8 % (1.0-4.0); HEMATOCRIT 36.1 % (37.0-47.0); HEMOGLOBIN 11.2 g/dl (12.0-16.0); LYMPH # 2.3 10*3/uL (1.3-4.4); LYMPH % 32.4 % (27.0-41.0); MEAN CELL VOLUME 95.3 fl (81.0-99.0); MEAN CORPUSCULAR HGB 29.6 pg (27.0-31.0); MEAN PLATELET VOLUME 11.5 fl (9.6-12.3); MONO # 0.5 10*3/uL (0.1-1.0); MONO % 6.5 % (3.0-9.0); NEUT # 3.8 10*3/uL (2.3-7.9); NEUT % 54.1 % (47.0-73.0); PLATELET COUNT AUTOMATED 147 10*3/uL (130-400); RED BLOOD COUNT 3.79 10*6/uL (4.10-5.10); RED CELL DISTRI WIDTH 14.8 % (0-14.5)
[2018-06-16 07:28] LABS: CREATININE 1.17 mg/dL (0.55-1.02); PHOSPHOROUS 3.8 mg/dL (2.5-4.9)
[2018-06-16 07:34] LABS: THYROID STIM HORMONE (HS) 2.98 uIU/ml (0.358-4.75)
[2018-06-16 07:36] LABS: VITAMIN D, 25-HYDROXY 44.4 ng/mL (30-100)
--- NOTE | 2018-06-16 11:00 | NUR ---
Recreation Assistant in to talk to patient. Patient states lives at home with a friend. There are 15 steps in the home. Physician: Dr. Tommy Dumont Pharmacy: [facility] Home health services: none Patient's level of ADLs: INDEPENDENT Patient has working utilities: yes DME: none Follow-up physician's appointment after d/c: she prefers to make her own follow up appt after discharge Does patient want to access PORTAL?: no Discharge plan discussed with patient. She lives at home with a friend. She is independent in her ADLs and ambulation. Discussed home health care services and she denies any home needs at this time. When medically stable she will be discharged to home. BOB WELSH
--- NOTE | 2018-06-16 11:02 | NUR ---
PRN DULCOLAX GIVEN PER PT REQUEST FOR CONSTIPATION.
[2018-06-16 12:00] VITALS: BP 136/64
--- NOTE | 2018-06-16 12:16 | NUR ---
DR. ENGLISH AWARE OF CONSULT. TO THE FLOOR AT THIS TIME TO SEE PATIENT.
--- NOTE | 2018-06-16 12:54 | NUR ---
STATED TO CANCEL STRESS TEST D/Y PATIENT HAVING POSITIVE STRESS TEST IN Mar, STATES EF=45%. PATIENT WILL HAVE HEART CATH TOMORROW AND NEED TRANSFER TO [facility] IN AM.
[2018-06-16 16:00] VITALS: BP 134/56
[2018-06-16 20:00] VITALS: BP 138/79
--- NOTE | 2018-06-16 21:24 | NUR ---
PATIENT REQUESTING HER VALIUM. WILL CHECK EFFECTIVENESS
[2018-06-17] VITALS: BP 124/62
[2018-06-17 08:00] VITALS: BP 136/58
--- NOTE | 2018-06-17 09:07 | NUR ---
PT TRANSPORTED TO [facility] AT THIS TIME [facility]IA [facility]. VSS. BP 138/58. HEPLOCK INTACT TO RIGHT HAND. COLLECTIONS SPECIALIST DISCONTINUED.
== END 2018-06-17 09:07 | disposition short-term general hospital (02) | DRG 303 ==
LOC: ED 16:07 → EDHOLD 18:09 → 5E 18:09
PROVIDERS: Emergency Medicine; Internal Medicine; ADMIT Internal Medicine
DX: I25.110 Atherosclerotic heart disease of native coronary artery with unstable angina pectoris (principal); I47.2 Ventricular tachycardia; N17.9 Acute kidney failure, unspecified; E83.41 Hypermagnesemia; E78.1 Pure hyperglyceridemia; E87.8 Other disorders of electrolyte and fluid balance, not elsewhere classified; N18.3 Chronic kidney disease, stage 3 (moderate); M94.0 Chondrocostal junction syndrome [Tietze]; M54.5 Low back pain; G89.29 Other chronic pain; F17.210 Nicotine dependence, cigarettes, uncomplicated; I13.10 Hypertensive heart and chronic kidney disease without heart failure, with stage 1 through stage 4 chronic kidney disease, or unspecified chronic kidney disease; F41.0 Panic disorder [episodic paroxysmal anxiety]; J44.9 Chronic obstructive pulmonary disease, unspecified; K21.9 Gastro-esophageal reflux disease without esophagitis; K59.00 Constipation, unspecified; E83.9 Disorder of mineral metabolism, unspecified; E11.22 Type 2 diabetes mellitus with diabetic chronic kidney disease; F41.8 Other specified anxiety disorders; N39.3 Stress incontinence (female) (male); D64.9 Anemia, unspecified; Z71.6 Tobacco abuse counseling; Z88.0 Allergy status to penicillin; Z88.1 Allergy status to other antibiotic agents; Z88.5 Allergy status to narcotic agent; Z88.8 Allergy status to other drugs, medicaments and biological substances; Z79.899 Other long term (current) drug therapy; Z90.710 Acquired absence of both cervix and uterus; Z90.49 Acquired absence of other specified parts of digestive tract; Z98.891 History of uterine scar from previous surgery; Z83.3 Family history of diabetes mellitus; Z82.49 Family history of ischemic heart disease and other diseases of the circulatory system

== ENCOUNTER 2018-09-25 19:06 | Emergency (ER) | payer OTHER ==
[~2018-09-25] VITALS: Ht 167.6 cm; Wt 61.2 kg
[~2018-09-25 19:06] MED LIST changes: +CYCLOBENZAPRINE10 MG PO; +Motrin,Rufen800 MG PO; +NORCO 10-325 T1 EACH PO; +SENNA8.6 MG PO; +VESICARE10 MG PO; +ZOLPIDEM TART10 MG PO
[2018-09-25 19:37] LABS: BASO % 0.5 % (0.0-1.0); EOS # 0.6 10*3/uL (0.0-0.4); EOS % 6.7 % (1.0-4.0); HEMATOCRIT 36.9 % (37.0-47.0); HEMOGLOBIN 11.4 g/dl (12.0-16.0); LYMPH # 2.4 10*3/uL (1.3-4.4); LYMPH % 27.3 % (27.0-41.0); MEAN CELL VOLUME 93.7 fl (81.0-99.0); MEAN CORPUSCULAR HGB 28.9 pg (27.0-31.0); MEAN CORPUSCULAR HGB CONC 30.9 g/dl (33.0-37.0); MEAN PLATELET VOLUME 11.5 fl (9.6-12.3); MONO # 0.5 10*3/uL (0.1-1.0); MONO % 5.9 % (3.0-9.0); NEUT # 5.2 10*3/uL (2.3-7.9); NEUT % 59.1 % (47.0-73.0); PLATELET COUNT AUTOMATED 147 10*3/uL (130-400); RED BLOOD COUNT 3.94 10*6/uL (4.10-5.10); RED CELL DISTRI WIDTH 14.8 % (0-14.5); WHITE BLOOD COUNT 8.9 10*3/uL (4.8-10.8)
[2018-09-25 19:52] LABS: ALBUMIN 3.5 gm/dl (3.1-4.5); CREATININE 1.18 mg/dL (0.55-1.02); POTASSIUM 3.7 mmol/L (3.5-5.1); TOTAL PROTEIN 6.8 gm/dL (6.4-8.2)
[2018-09-25] MEDS ORDERED: VENTOLIN 02.5 MG/3 M INH (20:41)
[2018-09-25] MEDS ORDERED: DELTASONE20 M1 PO (20:41)
[2018-09-25] MEDS ORDERED: VIBRAMYCIN100 MG PO (20:41)
== END 2018-09-25 21:05 | disposition home or self-care (01) ==
LOC: ED 19:06
PROVIDERS: Physician Assistant
DX: J44.1 Chronic obstructive pulmonary disease with (acute) exacerbation (principal); Z88.1 Allergy status to other antibiotic agents; Z88.6 Allergy status to analgesic agent; Z88.8 Allergy status to other drugs, medicaments and biological substances; Z79.899 Other long term (current) drug therapy; Z87.891 Personal history of nicotine dependence

== ENCOUNTER 2018-11-15 10:26 | Emergency (ER) | payer OTHER ==
[~2018-11-15] VITALS: Ht 167.6 cm; Wt 109.3 kg
[~2018-11-15 10:26] MED LIST changes: +DELTASONE20 M1 PO; +VENTOLIN 02.5 MG/3 M INH
== END 2018-11-15 12:11 | disposition home or self-care (01) ==
LOC: ED 10:26
DX: S80.212A Abrasion, left knee, initial encounter (principal); S80.211A Abrasion, right knee, initial encounter; I25.10 Atherosclerotic heart disease of native coronary artery without angina pectoris; J44.9 Chronic obstructive pulmonary disease, unspecified; M19.90 Unspecified osteoarthritis, unspecified site; E66.9 Obesity, unspecified; G89.29 Other chronic pain; I12.9 Hypertensive chronic kidney disease with stage 1 through stage 4 chronic kidney disease, or unspecified chronic kidney disease; E11.22 Type 2 diabetes mellitus with diabetic chronic kidney disease; N18.3 Chronic kidney disease, stage 3 (moderate); E78.1 Pure hyperglyceridemia; K21.9 Gastro-esophageal reflux disease without esophagitis; F17.210 Nicotine dependence, cigarettes, uncomplicated; Z88.1 Allergy status to other antibiotic agents; Z88.6 Allergy status to analgesic agent; Z88.0 Allergy status to penicillin; Z79.899 Other long term (current) drug therapy; Z79.2 Long term (current) use of antibiotics; Z90.49 Acquired absence of other specified parts of digestive tract; Z90.710 Acquired absence of both cervix and uterus; W10.8XXA Fall (on) (from) other stairs and steps, initial encounter; Y93.89 Activity, other specified; Y92.89 Other specified places as the place of occurrence of the external cause; Y99.8 Other external cause status

== ENCOUNTER 2018-12-06 12:29 | Inpatient (IN) | payer OTHER ==
[~2018-12-06] VITALS: Ht 167.6 cm; Wt 111.2 kg
--- NOTE | ~2018-12-06 | EKG ---
[place], [place] ELECTROCARDIOGRAM REPORT NAME: RICHARDSON LOPEZ UNIT #: [id number] ROOM: 502 DOCTOR: DAVIDA DRAFT REPORT BIRTHDATE: [address] [facility] Test Date: 2018-12-06 Test Time: 17:23:15 Pat Name: RICHARDSON LOPEZ Department: Room: [facility] 2 Gender: F Electronics Maintenance Technician: Ayleen Dennis : 1960 Requested By: NAKIA WOLF Order Number: [id number] Reading MD: Tommy Dumont MD Measurements Intervals [place] Rate: 75 P: -26 MD: 131 QRS: 59 QRSD: 99 T: 53 QT: 412 QTc: 461 Interpretive Statements Sinus rhythm Compared to ECG 06/18/2018 14:03:15 No significant changes Electronically Signed On 12-07-2018 9:03:16 PDT by Tommy Dumont MD CM:EKGRPT:ELECTROCARDIOGRAM REPORT [id number] NAKIA WOLF EPIPHANY DRAFT REPORT NAKIA WOLF
--- NOTE | ~2018-12-06 | EKG ---
[place], [place] ELECTROCARDIOGRAM REPORT NAME: RICHARDSON LOPEZ UNIT #: [id number] ROOM: 502 DOCTOR: DAVIDA DRAFT REPORT BIRTHDATE: [birth year] [facility] Test Date: 2018-12-06 Test Time: 14:15:52 Pat Name: RICHARDSON LOPEZ Department: Room: [facility] 2 Gender: F Womens Health Nurse Practitioner: Ayleen Dennis : 1960 Requested By: NAKIA WOLF Order Number: [id number] Reading MD: Tommy Dumont MD Measurements Intervals [place] Rate: 65 P: -34 NC: 152 QRS: 59 QRSD: 98 T: 63 QT: 419 QTc: 436 Interpretive Statements Sinus rhythm Compared to ECG 06/18/2018 14:03:15 No significant changes Electronically Signed On 12-07-2018 9:03:10 PDT by Tommy Dumont MD CM:EKGRPT:ELECTROCARDIOGRAM REPORT 1415 [id number] NAKIA WOLF EPIPHANY DRAFT REPORT NAKIA WOLF
--- NOTE | ~2018-12-06 | EKG ---
[place], [place] ELECTROCARDIOGRAM REPORT NAME: RICHARDSON LOPEZ UNIT #: [id number] ROOM: 502 DOCTOR: EPIPHANY DRAFT REPORT BIRTHDATE: [birth year] [facility] Test Date: 2018-12-06 Test Time: 20:42:44 Pat Name: RICHARDSON LOPEZ Department: Room: [facility] 2 Gender: F Planting Material Carrier: Ava Quintana : 1960 Requested By: NAKIA WOLF Order Number: [id number] Reading MD: Tommy Dumont MD Measurements Intervals [place] Rate: 73 P: -39 DC: 149 QRS: 63 QRSD: 103 T: 64 QT: 450 QTc: 496 Interpretive Statements Sinus rhythm Borderline prolonged QT interval Compared to ECG 06/18/2018 14:03:15 No significant changes Electronically Signed On 12-07-2018 9:03:23 PDT by Tommy Dumont MD CM:EKGRPT:ELECTROCARDIOGRAM REPORT [id number] NAKIA WOLF EPIPHANY DRAFT REPORT NAKIA WOLF
[2018-12-06 12:50] VITALS: BP 109/71
--- NOTE | 2018-12-06 12:50 | NUR ---
A 57, admitted to , under the services of ARIADNA Felix MD with a diagnosis of CHEST PAIN W/HIGH RISK. Chief complaint is CHEST PAIN. Patient arrived via wheel chair from [place]. Monitor applied. Initial assessment completed. Vital signs taken and recorded. ARIADNA FELIX MD notified of admission to the unit. Orders received. See assessment for past medical history, medications and allergies. Patient and/or family oriented to unit. [facility] visitation policy reviewed. Clothing/patient valuable form completed. NATHALIE HOOD
[2018-12-06] MEDS ORDERED: ATHLETE'S FOOT24 GM T (14:18)
[2018-12-06] MEDS ORDERED: PREDNISONE10 MG PO (14:20)
[2018-12-06] MEDS ORDERED: ATHLETE'S FOO35.4 GM T (14:21)
[2018-12-06] MEDS ORDERED: ADVAIR HFA 115-12 GM INH (14:22)
[2018-12-06] MEDS ORDERED: MYRBETRIQ50 M1 PO (14:23)
[2018-12-06 14:38] LABS: BASO % 0.5 % (0.0-1.0); EOS # 0.4 10*3/uL (0.0-0.4); EOS % 4.5 % (1.0-4.0); HEMOGLOBIN 11.2 g/dl (12.0-16.0); LYMPH % 24.4 % (27.0-41.0); MEAN CORPUSCULAR HGB 28.1 pg (27.0-31.0); MEAN CORPUSCULAR HGB CONC 30.3 g/dl (33.0-37.0); MONO # 0.5 10*3/uL (0.1-1.0); MONO % 6.1 % (3.0-9.0); NEUT # 5.2 10*3/uL (2.3-7.9); NEUT % 63.9 % (47.0-73.0); PLATELET COUNT AUTOMATED 199 10*3/uL (130-400); RED BLOOD COUNT 3.98 10*6/uL (4.10-5.10); WHITE BLOOD COUNT 8.1 10*3/uL (4.8-10.8)
[2018-12-06 15:08] LABS: ALBUMIN 3.1 gm/dl (3.1-4.5); ALKALINE PHOSPHATASE 105 U/L (45-117); BUN 14 mg/dl (7-24); CHLORIDE 107 mmol/L (98-107); CREATININE 1.01 mg/dL (0.55-1.02); POTASSIUM 3.9 mmol/L (3.5-5.1); SGPT/ALT 15 U/L (12-78); SODIUM 140 mmol/L (136-145); TOTAL PROTEIN 6.6 gm/dL (6.4-8.2)
[2018-12-06 15:09] LABS: SGOT/AST < 3 IU/L (3-35)
[2018-12-06 16:00] VITALS: BP 101/61
--- NOTE | 2018-12-06 17:08 | NUR ---
dISCUSSED ALMISIL AND LOTRIMIN OINTMENTS ORDERED. pT. STATED THAT NEITHER WORKED AND SHE DID NOT WANT THEM.
[2018-12-06 17:21] LABS: BILIRUBIN NEGATIVE (NEGATIVE); BLOOD NEGATIVE (NEGATIVE); CLARITY CLEAR (CLEAR); COLOR YELLOW (YELLOW); GLUCOSE NEGATIVE (NEGATIVE); KETONE NEGATIVE (NEGATIVE); LEUKO ESTERASE NEGATIVE (NEGATIVE); NITRITE NEGATIVE (NEGATIVE); PH 7.5 (5.0-9.0); UROBILINOGEN 0.2 E.U./dl (0.2-1.0)
[2018-12-06 17:28] LABS: BACTERIA 1+; EPITHELIAL CELLS TNTC; MUCOUS 2+
[2018-12-06 20:00] VITALS: BP 105/52
--- NOTE | 2018-12-06 21:36 | NUR ---
PT MEDICATED W/VALIUM FOR C/O ANXIETY.
[2018-12-07] VITALS: BP 125/59
--- NOTE | 2018-12-07 02:20 | NUR ---
DR. TORRES NOTIFIED OF MONITOR STRIP OF BIGEMINY. NO NEW ORDERS AT THIS TIME. PT ASLEEP, RESPIRATIONS EASY AND UNLABORED. CALL LIGHT IN REACH.
--- NOTE | 2018-12-07 05:25 | NUR ---
RICHARDSON LOPEZ [id number] Please refer to the physician's history and physical for past medical history, comorbid conditions, and allergies. Diagnosis: CHEST PAIN HTN HIGH RISK Kenneth Score: 20,LOW OR NO RISK WOUND DESCRIPTIONS: Wound Number: 1 Location of the wound: Left knee Type of wound: scab Thickness: Partial Size: 1.4cm x 0.5cm x <0.1cm Tunneling: none Undermining: none Sinus Tract: none Presence of Exudate: none Amount: None Color: Brown, red Odor: None Periwound Skin Appearance: Normal Wound edges: approximated Pain (associated with wound): none at time of assessment How does patient state this happened? pt stated this happened about 1 week ago and she wants to care for it upon discharge and doesn't want to follow up in an outpatient facility. Surface the patient is resting on: Isoflex SKIN PREVENTION RECOMMENDATION: 1. Pressure redistribution support surface as appropriate 2. Elevate heels 3. Remove boots/TEDS every shift and reapply 4. Head of bed 30 degrees as tolerated 5. Assess nutrition and hydration 6. Manage moisture 7. Avoid the use of containment devices while in bed 8. Use absorptive products on surfaces limit layers of linens on bed 9. Turn and reposition every 1-2 hours in bed and every 1 hour in chair as tolerated 10. Weight shifts every 15 minutes while up in chair 11. Offloading with pillows or device to keep heels elevated off bed 12. Monitor skin at least every shift 13. Inspect under medical devices twice a day WOUND TREATMENT RECOMMENDATIONS: Partial thickness guidelines: Cleanse left knee with nss and apply sureprep around the wound therahoney to wound bed and cover with optifoam gentle daily and prn for soiling.
[2018-12-07 07:02] LABS: BASO # 0.1 10*3/uL (0.0-0.1); BASO % 0.8 % (0.0-1.0); EOS # 0.3 10*3/uL (0.0-0.4); EOS % 4.6 % (1.0-4.0); HEMATOCRIT 36.4 % (37.0-47.0); HEMOGLOBIN 11.3 g/dl (12.0-16.0); LYMPH # 2.3 10*3/uL (1.3-4.4); LYMPH % 30.8 % (27.0-41.0); MEAN CELL VOLUME 92.4 fl (81.0-99.0); MEAN CORPUSCULAR HGB 28.7 pg (27.0-31.0); MEAN PLATELET VOLUME 11.2 fl (9.6-12.3); MONO # 0.4 10*3/uL (0.1-1.0); MONO % 5.9 % (3.0-9.0); NEUT # 4.3 10*3/uL (2.3-7.9); NEUT % 57.1 % (47.0-73.0); PLATELET COUNT AUTOMATED 205 10*3/uL (130-400); RED BLOOD COUNT 3.94 10*6/uL (4.10-5.10); RED CELL DISTRI WIDTH 15.9 % (0-14.5); WHITE BLOOD COUNT 7.5 10*3/uL (4.8-10.8)
[2018-12-07 07:24] LABS: ALBUMIN 3.1 gm/dl (3.1-4.5); BUN 14 mg/dl (7-24); CHLORIDE 108 mmol/L (98-107); CHOLESTEROL 179 mg/dL (<200); CREATININE 0.89 mg/dL (0.55-1.02); HDL CHOLESTEROL 51 mg/dl (40-60); SGOT/AST 7 IU/L (3-35); SGPT/ALT 16 U/L (12-78); SODIUM 140 mmol/L (136-145)
[2018-12-07 07:32] LABS: ALKALINE PHOSPHATASE 104 U/L (45-117); FREE T4 1.09 ng/dl (0.76-1.46); LDL CHOLESTEROL 109 mg/dL (9-159); THYROID STIM HORMONE (HS) 0.696 uIU/ml (0.358-4.75); TOTAL PROTEIN 6.5 gm/dL (6.4-8.2); TRIGLYCERIDES 96 mg/dl (<150); VLDL CHOLESTEROL 19 mg/dL (6-40)
[2018-12-07 07:41] LABS: ACT PARTIAL THROMBO TIME 29.6 SECONDS (20.0-32.1)
[2018-12-07 08:00] VITALS: BP 111/60
--- NOTE | 2018-12-07 09:00 | NUR ---
RESTING IN BED. RESP-EASY AND REGULAR. NO C/O AT THIS TIME. CALL LIGHT IN REACH. SEE SHIFT ASSESSMENT.
--- NOTE | 2018-12-07 10:00 | NUR ---
PT OFF THE FLOOR FOR STRESS TEST.
[2018-12-07 10:20] LABS: VITAMIN D, 25-HYDROXY 37.5 ng/mL (30-100)
--- NOTE | 2018-12-07 10:30 | NUR ---
Expressive Art Therapist in to see patient. She is currently not in her room. Will follow up at a later time.
--- NOTE | 2018-12-07 11:13 | NUR ---
INFORMED CONSENT SIGNED FOR LEXISCAN STRESS TEST WITH DR. VANG. RESTING EKG NSR WITH PVC'C. HR 64, BP 112/70. PULSE OX 99% AND LUNGS CLEAR BILATERALLY. COMPLETED ONE MINUTE OF LEXISCAN PROTOCOL RECEIVING LEXISCAN 0.4MG OVER 10 SECONDS. PVC'S NOTED WITH NO ST CHANGES. PT C/O WEIRD FEELING AND HEART RACING. LAST RECOVERY HR 85, BP 108/68. WAITING NUCLEAR SCANNING IN STABLE CONDITION.
[2018-12-07 12:00] VITALS: BP 126/74
--- NOTE | 2018-12-07 14:00 | NUR ---
Machine Setter Supervisor in to talk to patient. Patient states lives at home with a friend. There are 0 steps in the home. Physician: Dr. Tommy Dumont Pharmacy: [facility] Home health services: none Patient's level of ADLs: MINIMAL ASSIST Patient has working utilities: yes DME: cane, nebulizer Follow-up physician's appointment after d/c: she prefers to make her own follow up appt after discharge Does patient want to access PORTAL?: no Discharge plan discussed with patient and her friend who is sitting at her bedside. She is independent in her ADLs and occasionally will use a cane. Discussed home health care services and she denies any home needs. When medically stable she will be discharged to home. She is awaiting her discharge. Explained physicians were waiting on her stress test results from this morning to see if the results were normal or abnormal. She verbalized an understanding. Explained the nuclear imaging scans were not entered in the computer. Her friend will provide transportation on discharge. BOB WELSH
[2018-12-07] MEDS ORDERED: FLUCONAZOLE150 MG PO (14:22)
[2018-12-07] MEDS ORDERED: NATURE'S BLEND F1 MG PO (14:22)
[2018-12-07 14:34] LABS: BILIRUBIN NEGATIVE (NEGATIVE); BLOOD NEGATIVE (NEGATIVE); CLARITY CLEAR (CLEAR); COLOR YELLOW (YELLOW); GLUCOSE NEGATIVE (NEGATIVE); KETONE NEGATIVE (NEGATIVE); LEUKO ESTERASE NEGATIVE (NEGATIVE); NITRITE NEGATIVE (NEGATIVE); UROBILINOGEN 0.2 E.U./dl (0.2-1.0)
[2018-12-07 14:49] LABS: BACTERIA TRACE; EPITHELIAL CELLS 16-20; WBC 0-2 wbc/hpf (0-5)
[2018-12-07 16:00] VITALS: BP 96/50
[2018-12-07] MEDS ORDERED: NYSTATIN1 EAC7 MC (17:27)
--- NOTE | 2018-12-07 18:10 | NUR ---
Discharge instructions reviewed with patient/family. Patient receptive and verbalizes understanding. Follow-up care arranged. Written instructions given to patient/family. HEPLOCK REMOVED 2X2 APPLIED. HOLTER REMOVED. AMBULATORY OFF THE FLOOR FOR DISCHARGE VISITOR AT HER SIDE. ROMEO SIDDIQUI R
== END 2018-12-07 18:10 | disposition home or self-care (01) | DRG 243 ==
LOC: 5E 12:29
PROVIDERS: Internal Medicine; ADMIT Internal Medicine
PROC: 4A02XM4 Measurement of Cardiac Total Activity, External Approach (ICD-10-PCS; principal; 2018-12-07)
PROC: 3E073KZ Introduction of Other Diagnostic Substance into Coronary Artery, Percutaneous Approach (ICD-10-PCS; 2018-12-07)
DX: K21.9 Gastro-esophageal reflux disease without esophagitis (principal); N39.0 Urinary tract infection, site not specified; E11.65 Type 2 diabetes mellitus with hyperglycemia; E44.0 Moderate protein-calorie malnutrition; F41.8 Other specified anxiety disorders; I12.9 Hypertensive chronic kidney disease with stage 1 through stage 4 chronic kidney disease, or unspecified chronic kidney disease; E11.22 Type 2 diabetes mellitus with diabetic chronic kidney disease; I25.118 Atherosclerotic heart disease of native coronary artery with other forms of angina pectoris; F17.210 Nicotine dependence, cigarettes, uncomplicated; N18.3 Chronic kidney disease, stage 3 (moderate); D64.9 Anemia, unspecified; Z79.4 Long term (current) use of insulin; Z90.49 Acquired absence of other specified parts of digestive tract; Z98.891 History of uterine scar from previous surgery; Z90.710 Acquired absence of both cervix and uterus; Z83.3 Family history of diabetes mellitus; Z83.438 Family history of other disorder of lipoprotein metabolism and other lipidemia; Z82.49 Family history of ischemic heart disease and other diseases of the circulatory system; Z88.2 Allergy status to sulfonamides; Z88.0 Allergy status to penicillin; Z88.6 Allergy status to analgesic agent; Z88.8 Allergy status to other drugs, medicaments and biological substances; Z79.899 Other long term (current) drug therapy; Z79.890 Hormone replacement therapy; Z79.84 Long term (current) use of oral hypoglycemic drugs; Z68.39 Body mass index [BMI] 39.0-39.9, adult; E11.69 Type 2 diabetes mellitus with other specified complication

== ENCOUNTER 2019-01-02 19:39 | Inpatient (IN) | payer OTHER ==
[~2019-01-02] VITALS: Ht 167.6 cm; Wt 110.8 kg
--- NOTE | ~2019-01-02 | EKG ---
[employer], [place] ELECTROCARDIOGRAM REPORT NAME: RICHARDSON LOPEZ UNIT #: [id number] ROOM: 427 DOCTOR: DAVIDA DRAFT REPORT BIRTHDATE: [birth year] [facility] Test Date: 2019-01-02 Test Time: 20:24:25 Pat Name: RICHARDSON LOPEZ Department: Room: 427 Gender: F Scheduler: YEIMI : 1960 Requested By: NEELA LOZANO Order Number: [id number] Reading MD: Jania Yen MD Measurements Intervals [place] Rate: 81 P: -37 VA: 127 QRS: 62 QRSD: 95 T: 57 QT: 403 QTc: 468 Interpretive Statements Sinus rhythm Ventricular premature complex Compared to ECG 12/06/2018 20:42:44 Ventricular premature complex(es) now present Electronically Signed On 01-03-2019 13:19:00 PDT by Jania Yen MD CM:EKGRPT:ELECTROCARDIOGRAM REPORT [id number] NEELA HIGUERA DRAFT REPORT NEELA CARBONE
[~2019-01-02 19:39] MED LIST changes: +ADVAIR HFA 115-12 GM INH; +ATHLETE'S FOO35.4 GM T; +ATHLETE'S FOOT24 GM T; +FLUCONAZOLE150 MG PO; +MYRBETRIQ50 M1 PO; +NATURE'S BLEND F1 MG PO; +NYSTATIN1 EAC7 MC
[2019-01-02 19:40] VITALS: BP 129/53
--- NOTE | 2019-01-02 20:26 | NUR ---
SOLU-MEDROL GIVEN BY NADIA SENIOR
[2019-01-02 20:32] LABS: BASO # 0.1 10*3/uL (0.0-0.1); BASO % 0.7 % (0.0-1.0); EOS # 0.5 10*3/uL (0.0-0.4); EOS % 5.6 % (1.0-4.0); HEMATOCRIT 37.7 % (37.0-47.0); HEMOGLOBIN 11.8 g/dl (12.0-16.0); LYMPH # 2.3 10*3/uL (1.3-4.4); MEAN CELL VOLUME 93.1 fl (81.0-99.0); MEAN CORPUSCULAR HGB 29.1 pg (27.0-31.0); MEAN CORPUSCULAR HGB CONC 31.3 g/dl (33.0-37.0); MEAN PLATELET VOLUME 11.6 fl (9.6-12.3); MONO # 0.7 10*3/uL (0.1-1.0); MONO % 7.3 % (3.0-9.0); NEUT # 5.4 10*3/uL (2.3-7.9); NEUT % 60.1 % (47.0-73.0); PLATELET COUNT AUTOMATED 221 10*3/uL (130-400); RED BLOOD COUNT 4.05 10*6/uL (4.10-5.10); RED CELL DISTRI WIDTH 15.4 % (0-14.5); WHITE BLOOD COUNT 8.9 10*3/uL (4.8-10.8)
[2019-01-02 20:43] LABS: ACT PARTIAL THROMBO TIME 28.8 SECONDS (20.0-32.1)
[2019-01-02 21:00] LABS: ALBUMIN 3.5 gm/dl (3.1-4.5); ALKALINE PHOSPHATASE 99 U/L (45-117); BUN 14 mg/dl (7-24); CHLORIDE 109 mmol/L (98-107); CREATININE 1.08 mg/dL (0.55-1.02); LIPASE 89 U/L (73-393); SGOT/AST 12 IU/L (3-35); SGPT/ALT 25 U/L (12-78); SODIUM 142 mmol/L (136-145); TOTAL PROTEIN 7.5 gm/dL (6.4-8.2); TROPONIN I < 0.015 ng/ml (<0.045)
[2019-01-02 21:10] LABS: BILIRUBIN NEGATIVE (NEGATIVE); BLOOD NEGATIVE (NEGATIVE); CLARITY CLEAR (CLEAR); COLOR YELLOW (YELLOW); GLUCOSE NEGATIVE (NEGATIVE); KETONE NEGATIVE (NEGATIVE); LEUKO ESTERASE NEGATIVE (NEGATIVE); NITRITE NEGATIVE (NEGATIVE); PH 5.5 (5.0-9.0); SPECIFIC GRAVITY >= 1.030 (1.005-1.030); UROBILINOGEN 0.2 E.U./dl (0.2-1.0)
[2019-01-02 21:20] LABS: BACTERIA TRACE; WBC 0-2 wbc/hpf (0-5)
[2019-01-02 21:42] VITALS: BP 102/62
--- NOTE | 2019-01-02 22:42 | NUR ---
A 58, admitted to 4E, under the services of ARIADNA Felix MD with a diagnosis of COPD EXACERBATION. Chief complaint is COUGH/CONGESTION/SPUTUM. Patient arrived via stretcher from ER. Monitor applied. Initial assessment completed. Vital signs taken and recorded. ARIADNA FELIX MD notified of admission to the unit. Orders received. See assessment for past medical history, medications and allergies. Patient and/or family oriented to unit. [address] visitation policy reviewed. Clothing/patient valuable form completed. DYLON SHIRLEY
--- NOTE | 2019-01-02 23:23 | NUR ---
NOTIFIED NURSING AUTO TUNE UP MECHANIC OF NEED FOR ROCEPHIN.
[2019-01-03] VITALS: BP 137/68
[2019-01-03 01:38] VITALS: BP 142/65
--- NOTE | 2019-01-03 01:38 | NUR ---
PATIENT GOT UP TO USE THE BATHROOM. WHEN SHE LAID BACK DOWN ON THE BED SHE STATED SHE FELT LIKE SHE WAS "GOING TO FAINT" AND THAT SHE FELT "CLAMMY". VITALS 142/65 BP. HR 81. REPIRATIONS 20. TEMP 97.8F ORAL. 96% PULSE OX ROOM AIR. STOPPED ZITHROMAX AND NOTIFIED DOCTOR VANG OF THE PATIENT'S CHANGE IN CONDITION. ORDERS WERE RECIEVED TO DISCONTINUE ZITHROMAX AND ORDER DOXYCYCLINE 100MG IV DAILY. WILL CONTINUE TO MONITOR THE PATIENT.
--- NOTE | 2019-01-03 01:46 | NUR ---
CHECKED ON PATIENT. SHE STATED SHE WAS FEELING BETTER. RESTING QUIETLY IN BED. NO SIGNS OR SYMPTOMS OF DISTRESS NOTED.
--- NOTE | 2019-01-03 01:47 | NUR ---
VALIUM GIVEN PER PATIENT REQUEST FOR FEELING ANXIOUS. WILL ASSESS EFFECTIVENESS.
--- NOTE | 2019-01-03 06:05 | NUR ---
BS 209. PATIENT REFUSING INSULIN INJECTION. PATIENT STATES SHE DOES NOT TAKE INSULIN AT HOME. RATIONALE FOR INSULIN EXPLAINED. PATIENT STILL REFUSING.
--- NOTE | 2019-01-03 07:22 | NUR ---
PULLED SYNTHROID AND IT WAS 125MCG. ORDERED DOSE IS 100 MCG. NOTIFIED PHARMACY OF WRONG DOSING IN PYXIS POCKET. PHARMACY STATED THEY WOULD LET SOMEONE KNOW AND SEND UP SYNTHROID 100 MCG.
[2019-01-03 07:29] LABS: HEMATOCRIT 36.7 % (37.0-47.0); HEMOGLOBIN 11.2 g/dl (12.0-16.0); MEAN CELL VOLUME 93.4 fl (81.0-99.0); MEAN CORPUSCULAR HGB 28.5 pg (27.0-31.0); MEAN CORPUSCULAR HGB CONC 30.5 g/dl (33.0-37.0); MEAN PLATELET VOLUME 11.8 fl (9.6-12.3); PLATELET COUNT AUTOMATED 206 10*3/uL (130-400); RED BLOOD COUNT 3.93 10*6/uL (4.10-5.10); RED CELL DISTRI WIDTH 15.3 % (0-14.5)
[2019-01-03 08:00] VITALS: BP 138/76
[2019-01-03 08:01] LABS: PLATELET SUFFICIENCY NORMAL (NORMAL); TOTAL CELLS COUNTED 100 #CELLS
--- NOTE | 2019-01-03 09:31 | NUR ---
RICHARDSON LOPEZ [id number] Please refer to the physician's history and physical for past medical history, comorbid conditions, and allergies. Diagnosis: COPD EXACERBATION Kenneth Score: 21,LOW OR NO RISK WOUND DESCRIPTIONS: Patient has red blanchable area noted to right lower quadrant. Patient stated she when she has these coughing spells she has to wear a diaper and she stated she is unable to wear a pad because of the amount of urine that comes out during a coughing spell. Patient stated the area appears after wearing the diapers. She stated that it is not draining anymore but was on admission, No drainage at time of assessment. No odor at time of assessment. Patient stated she will care for this area at home like she has done before coming in. Surface the patient is resting on: Isoflex SKIN PREVENTION RECOMMENDATION: 1. Pressure redistribution support surface as appropriate 2. Elevate heels 3. Remove boots/TEDS every shift and reapply 4. Head of bed 30 degrees as tolerated 5. Assess nutrition and hydration 6. Manage moisture 7. Avoid the use of containment devices while in bed 8. Use absorptive products on surfaces limit layers of linens on bed 9. Turn and reposition every 1-2 hours in bed and every 1 hour in chair as tolerated 10. Weight shifts every 15 minutes while up in chair 11. Offloading with pillows or device to keep heels elevated off bed 12. Monitor skin at least every shift 13. Inspect under medical devices twice a day WOUND TREATMENT RECOMMENDATIONS: Cleanse right lower quadrant with soap and water and apply hydrguard every shift and prn for soiling.
--- NOTE | 2019-01-03 10:19 | NUR ---
MEDICATED WITH PRN VALIUM FOR ANXIETY. WILL MONITOR FOR EFFECTIVENESS.
--- NOTE | 2019-01-03 10:30 | NUR ---
Personal Chef in to talk to patient. Patient states lives at home with a friend. There are 0 steps in the home. There is a wheelchair ramp. Physician: Dr. Tommy Dumont Pharmacy: [facility] Home health services: none Patient's level of ADLs: MINIMAL ASSIST Patient has working utilities: yes DME: cane, nebulizer Follow-up physician's appointment after d/c: she prefers to make her own follow up appt after discharge Does patient want to access PORTAL?: no Discharge plan discussed with patient and her friend who is sitting at her bedside. She is independent in her ADLs and occasionally will use a cane when ambulating due to her back. Discussed home health care services and she denies any home needs. When medically stable she will be discharged to home. Her friend, Chirag, will provide transportation on discharge. BOB WELSH
--- NOTE | 2019-01-03 11:28 | NUR ---
Dr. Schaeffer notified of wound care recommendations.
--- NOTE | 2019-01-03 11:30 | NUR ---
PT RESTING, LESS ANXIOUS. EARLIER VALIUM EFFECTIVE.
[2019-01-03 12:00] VITALS: BP 109/52
[2019-01-03 13:48] LABS: BUN 14 mg/dl (7-24); CHLORIDE 111 mmol/L (98-107); CREATININE 1.07 mg/dL (0.55-1.02); POTASSIUM 4.2 mmol/L (3.5-5.1); SODIUM 141 mmol/L (136-145)
--- NOTE | 2019-01-03 14:46 | NUR ---
PT COMPLAINING OF HEADACHE, SPOKE WITH EROS. ORDER RECEIVED FOR TYLENOL PRN.
--- NOTE | 2019-01-03 15:32 | NUR ---
PATIENT C/O HEADACH, REQUESTING TYLENOL, CALL PLSCED TO DR. MCCOLLUM RESIDENT, SPOKE WITH DR. CROCKETT, HE VERSED HE WILL PUT SOMETHING IN.
[2019-01-03 16:00] VITALS: BP 115/43
--- NOTE | 2019-01-03 16:04 | NUR ---
PATIENT C/O HEADACHE, MEDICATED WITH TYLENOL 650MG ORDERED PRN
[2019-01-03 20:00] VITALS: BP 130/49
--- NOTE | 2019-01-03 22:16 | NUR ---
VALIUM GIVEN PER PATIENT REQUEST FOR ANXIETY. WILL ASSESS EFFECTIVENESS.
[2019-01-04] VITALS: BP 121/59
[2019-01-04 07:09] LABS: BASO % 0.2 % (0.0-1.0); HEMOGLOBIN 10.5 g/dl (12.0-16.0); LYMPH % 5.3 % (27.0-41.0); MEAN CELL VOLUME 94.3 fl (81.0-99.0); MEAN CORPUSCULAR HGB 28.3 pg (27.0-31.0); MEAN PLATELET VOLUME 11.9 fl (9.6-12.3); MONO # 0.7 10*3/uL (0.1-1.0); MONO % 3.6 % (3.0-9.0); NEUT # 17.1 10*3/uL (2.3-7.9); PLATELET COUNT AUTOMATED 227 10*3/uL (130-400); RED BLOOD COUNT 3.71 10*6/uL (4.10-5.10); RED CELL DISTRI WIDTH 15.8 % (0-14.5)
[2019-01-04 07:43] LABS: BUN 17 mg/dl (7-24); CHLORIDE 110 mmol/L (98-107); CREATININE 1.03 mg/dL (0.55-1.02); POTASSIUM 4.6 mmol/L (3.5-5.1); SODIUM 140 mmol/L (136-145)
[2019-01-04 08:00] VITALS: BP 110/64
--- NOTE | 2019-01-04 10:30 | NUR ---
Artificial Cherry Maker in to see patient. No new needs or request at this time. She denies any home needs. When medically stable she will be discharged to home. Per multidisciplinary discharge planning meeting plan is to discharge patient tomorrow, Thursday.
[2019-01-04 12:00] VITALS: BP 109/45
--- NOTE | 2019-01-04 14:44 | NUR ---
PT STATES THAT SHE HAS A HEAD ACHE AND RATES IT A 8/10. SHE IS REQUESTING HER PRN ACETAMINOPHEN. ACETAMINOPHEN PO GIVEN AT THIS TIME.
[2019-01-04 16:00] VITALS: BP 101/51
[2019-01-04 20:00] VITALS: BP 114/44
[2019-01-04 22:00] VITALS: BP 123/55
--- NOTE | 2019-01-04 23:30 | NUR ---
PT MEDICATED W/VALIUM PER REQUEST TO HELP PROMOTE SLEEP.
[2019-01-05] VITALS: BP 125/44
--- NOTE | 2019-01-05 00:26 | NUR ---
PT RESTING QUIETLY IN BED AT THIS TIME. PRN VALIUM EFFECTIVE.
[2019-01-05 06:50] LABS: BASO % 0.1 % (0.0-1.0); HEMATOCRIT 34.5 % (37.0-47.0); HEMOGLOBIN 10.4 g/dl (12.0-16.0); LYMPH # 1.1 10*3/uL (1.3-4.4); LYMPH % 7.3 % (27.0-41.0); MEAN CELL VOLUME 94.3 fl (81.0-99.0); MEAN CORPUSCULAR HGB 28.4 pg (27.0-31.0); MEAN CORPUSCULAR HGB CONC 30.1 g/dl (33.0-37.0); MEAN PLATELET VOLUME 11.7 fl (9.6-12.3); MONO # 0.5 10*3/uL (0.1-1.0); MONO % 3.5 % (3.0-9.0); NEUT # 12.7 10*3/uL (2.3-7.9); NEUT % 87.7 % (47.0-73.0); PLATELET COUNT AUTOMATED 211 10*3/uL (130-400); RED BLOOD COUNT 3.66 10*6/uL (4.10-5.10); RED CELL DISTRI WIDTH 15.6 % (0-14.5); WHITE BLOOD COUNT 14.5 10*3/uL (4.8-10.8)
[2019-01-05 07:19] LABS: BUN 23 mg/dl (7-24); CHLORIDE 105 mmol/L (98-107); CREATININE 0.97 mg/dL (0.55-1.02); POTASSIUM 4.5 mmol/L (3.5-5.1); SODIUM 138 mmol/L (136-145)
[2019-01-05 12:00] VITALS: BP 129/62
[2019-01-05] MEDS ORDERED: DOXYCYCLINE100 MG PO (14:36)
[2019-01-05] MEDS ORDERED: PREDNISONE10 MG PO (14:36)
--- NOTE | 2019-01-05 15:07 | NUR ---
PT DISCHARGED AT THIS TIME. IV REMOVED AND PRESSURE DRESSING APPLIED. VERBALIZED UNDERSTANDING OF DISCHARGE INSTRUCTIONS. HEART MONITOR RETURNED TO FLOOR.
== END 2019-01-05 15:07 | disposition home or self-care (01) | DRG 140 ==
LOC: ED 19:39 → EDHOLD 21:05 → 4E 21:05
PROVIDERS: Internal Medicine; Physician Assistant; ADMIT Internal Medicine
DX: J44.1 Chronic obstructive pulmonary disease with (acute) exacerbation (principal); D64.9 Anemia, unspecified; E87.8 Other disorders of electrolyte and fluid balance, not elsewhere classified; E83.41 Hypermagnesemia; R79.82 Elevated C-reactive protein (CRP); F41.8 Other specified anxiety disorders; I25.10 Atherosclerotic heart disease of native coronary artery without angina pectoris; K21.9 Gastro-esophageal reflux disease without esophagitis; N18.3 Chronic kidney disease, stage 3 (moderate); E11.22 Type 2 diabetes mellitus with diabetic chronic kidney disease; I12.9 Hypertensive chronic kidney disease with stage 1 through stage 4 chronic kidney disease, or unspecified chronic kidney disease; F17.210 Nicotine dependence, cigarettes, uncomplicated; Z88.2 Allergy status to sulfonamides; Z88.1 Allergy status to other antibiotic agents; Z88.0 Allergy status to penicillin; Z88.6 Allergy status to analgesic agent; Z88.8 Allergy status to other drugs, medicaments and biological substances; Z90.49 Acquired absence of other specified parts of digestive tract; Z90.710 Acquired absence of both cervix and uterus; Z98.891 History of uterine scar from previous surgery; Z83.3 Family history of diabetes mellitus; Z82.49 Family history of ischemic heart disease and other diseases of the circulatory system; Z83.438 Family history of other disorder of lipoprotein metabolism and other lipidemia; Z80.8 Family history of malignant neoplasm of other organs or systems; Z87.440 Personal history of urinary (tract) infections; Z79.899 Other long term (current) drug therapy

== ENCOUNTER 2019-02-02 03:01 | Inpatient (IN) | payer OTHER ==
[2019-02-02] VITALS (10 sets, daily range): BP systolic 95–130; BP diastolic 45–78
[~2019-02-02] VITALS: Ht 167.6 cm; Wt 110.4 kg
[~2019-02-02 03:01] MED LIST changes: +DOXYCYCLINE100 MG PO
[2019-02-02 03:33] LABS: BASO # 0.1 10*3/uL (0.0-0.1); BASO % 0.7 % (0.0-1.0); EOS # 0.4 10*3/uL (0.0-0.4); EOS % 4.2 % (1.0-4.0); HEMATOCRIT 38.2 % (37.0-47.0); HEMOGLOBIN 11.7 g/dl (12.0-16.0); LYMPH # 2.1 10*3/uL (1.3-4.4); MEAN CELL VOLUME 92.3 fl (81.0-99.0); MEAN CORPUSCULAR HGB 28.3 pg (27.0-31.0); MEAN CORPUSCULAR HGB CONC 30.6 g/dl (33.0-37.0); MEAN PLATELET VOLUME 11.4 fl (9.6-12.3); MONO # 0.8 10*3/uL (0.1-1.0); MONO % 8.4 % (3.0-9.0); NEUT # 6.2 10*3/uL (2.3-7.9); NEUT % 64.3 % (47.0-73.0); PLATELET COUNT AUTOMATED 204 10*3/uL (130-400); RED BLOOD COUNT 4.14 10*6/uL (4.10-5.10); RED CELL DISTRI WIDTH 14.6 % (0-14.5); WHITE BLOOD COUNT 9.6 10*3/uL (4.8-10.8)
[2019-02-02 03:44] LABS: ACT PARTIAL THROMBO TIME 30.6 SECONDS (20.0-32.1)
[2019-02-02 03:51] LABS: ALBUMIN 3.4 gm/dl (3.1-4.5); ALKALINE PHOSPHATASE 96 U/L (45-117); BUN 11 mg/dl (7-24); CHLORIDE 108 mmol/L (98-107); CREATININE 1.13 mg/dL (0.55-1.02); SGOT/AST 15 IU/L (3-35); SGPT/ALT 19 U/L (12-78); SODIUM 139 mmol/L (136-145); TOTAL PROTEIN 7.2 gm/dL (6.4-8.2); TROPONIN I < 0.015 ng/ml (<0.045)
--- NOTE | 2019-02-02 04:23 | NUR ---
PT BREATHING EASIER AT THIS TIME.SHE IS RESTING --ROBERT DE LEON RN
--- NOTE | 2019-02-02 05:14 | NUR ---
DR CAMPBELL IN TO SEE PT---ROBERT DE LEON RN
--- NOTE | 2019-02-02 06:12 | NUR ---
A 58, admitted to , under the services of ARIADNA Felix MD with a diagnosis of COPD. Chief complaint is COPD. Patient arrived via stretcher from ER. Monitor applied. Initial assessment completed. Vital signs taken and recorded. ARIADNA FELIX MD notified of admission to the unit. Orders received. See assessment for past medical history, medications and allergies. Patient and/or family oriented to unit. [facility] visitation policy reviewed. Clothing/patient valuable form completed. ANABEL ROSE
--- NOTE | 2019-02-02 06:16 | NUR ---
UNABLE TO VERIFY HOME MED REC PATIENT DOES NOT KNOW HOME MEDICATIONS. [facility] WILL NEED TO BE CALLED WHEN THEY OPEN TO VERIFY THESE MEDS.
--- NOTE | 2019-02-02 06:33 | NUR ---
CALLED REGARDING CONSULT. STATES HE WILL BE ARRIVING TO HOSPITAL SHORTLY.
--- NOTE | 2019-02-02 06:42 | NUR ---
HERE TO SEE PATIENT
--- NOTE | 2019-02-02 08:00 | NUR ---
Cable Technician in to talk to patient. Patient states lives at home with a friend. There are 0 steps in the home. There is a wheelchair ramp. Physician: Dr. Tommy Dumont Pharmacy: [facility] Home health services: none Patient's level of ADLs: MINIMAL ASSIST Patient has working utilities: yes DME: cane, nebulizer Follow-up physician's appointment after d/c: she prefers to make her own follow up appt after discharge Does patient want to access PORTAL?: no Discharge plan discussed with patient. She lives at home with a friend. She is independent in her ADLs and occasionally will use a cane when ambulating due to her back. Discussed home health care services and she denies any home needs. When medically stable she will be discharged to home. Her friend, Colony, will provide transportation on discharge. BOB WELSH
[2019-02-02] MEDS ORDERED: TRAD5TAB1 PO (08:50)
--- NOTE | 2019-02-02 16:01 | NUR ---
MEDICATED WITH PO TYLENOL ORDERED PER PT REQUEST FOR C/O HEADACHE AND BODY ACHES R/T COUGHING RATED 5/10.
--- NOTE | 2019-02-02 17:02 | NUR ---
VALIUM GIVEN PER PT REQUEST FOR ANXIETY
--- NOTE | 2019-02-02 19:26 | NUR ---
PT AWAKE, RESTING IN BED. PT COMPLAINS ONLY OF A COUGH. COLD DRINKS PROVIDED PER REQUEST. PT DENIES ANY OTHER NEEDS AT THIS TIME. WILL MONITOR. CALL LIGHT IN REACH.
--- NOTE | 2019-02-02 19:58 | NUR ---
PATIENT HAVING MULTIPLE PVCs THROUGHOUT AFTERNOON PER AM SHIFT RN, BUT NOW GOING IN AND OUT OF VENTRICULAR BIGEMINY. PT ASYMPTOMATIC. DENIES ANY CHEST PAIN/PRESSURE, PALPITATIONS, ETC. STAT EKG ORDERED PER POLICY. NOTIFIED. WILL REVIEW EKG/CHART.
--- NOTE | 2019-02-02 20:14 | NUR ---
IN TO SEE PT FOLLOWING ADMINISTRATION OF BREATHING TX. BP 128/64 MANUALLY. PER , GIVE DOSE OF METOPROLOL FROM PT'S HOME MED REC SHE DID NOT GET HER DOSE THIS MORNING. ONE TIME DOSE OF METOPROLOL 25 MG TO BE GIVEN.
--- NOTE | 2019-02-02 22:57 | NUR ---
PO TYLENOL ADMINISTERED FOR PT C/O HEADACHE AND RIB PAIN FROM COUGHING. PO RESTORIL ALSO ADMINISTERED FOR SLEEPLESSNESS. WILL MONITOR EFFECTIVENESS. CALL LIGHT IN REACH.
[2019-02-03] VITALS: BP 128/50
--- NOTE | 2019-02-03 04:03 | NUR ---
PT ASLEEP IN BED. RESPIRATIONS EASY. NO S/S OF DISTRESS NOTED. WILL MONITOR. CALL LIGHT IN REACH.
--- NOTE | 2019-02-03 06:06 | NUR ---
PT C/O WORSENING DYSURIA. INSTRUCTED TO ORDER UA^UC PER .
[2019-02-03 06:39] LABS: HEMATOCRIT 34.6 % (37.0-47.0); HEMOGLOBIN 10.5 g/dl (12.0-16.0); MEAN CELL VOLUME 92.8 fl (81.0-99.0); MEAN CORPUSCULAR HGB 28.2 pg (27.0-31.0); MEAN CORPUSCULAR HGB CONC 30.3 g/dl (33.0-37.0); PLATELET COUNT AUTOMATED 211 10*3/uL (130-400); RED BLOOD COUNT 3.73 10*6/uL (4.10-5.10); RED CELL DISTRI WIDTH 14.6 % (0-14.5); WHITE BLOOD COUNT 14.6 10*3/uL (4.8-10.8)
--- NOTE | 2019-02-03 07:05 | NUR ---
ARRIVED ON SHIFT, INTRODUCED TO PATIENT, WHITE BOARD UPDATED, NO NEEDS VOICED AT THIS TIME. REPORT RECEIVED FROM OFFGOING NURSE.
[2019-02-03 07:06] LABS: BUN 12 mg/dl (7-24); CHLORIDE 114 mmol/L (98-107); CREATININE 1.02 mg/dL (0.55-1.02); PHOSPHOROUS 1.9 mg/dL (2.5-4.9); POTASSIUM 4.2 mmol/L (3.5-5.1); SODIUM 142 mmol/L (136-145)
[2019-02-03 07:33] LABS: PLATELET SUFFICIENCY NORMAL (NORMAL); POLYCHROMASIA SLIGHT; ROULEAUX SLIGHT; TOTAL CELLS COUNTED 100 #CELLS
--- NOTE | 2019-02-03 07:38 | NUR ---
Shift chart check completed.
[2019-02-03 08:00] VITALS: BP 110/70
[2019-02-03 09:14] LABS: BILIRUBIN NEGATIVE (NEGATIVE); BLOOD NEGATIVE (NEGATIVE); CLARITY CLEAR (CLEAR); COLOR YELLOW (YELLOW); GLUCOSE 2+ (NEGATIVE); KETONE NEGATIVE (NEGATIVE); LEUKO ESTERASE NEGATIVE (NEGATIVE); NITRITE NEGATIVE (NEGATIVE); PH 5.5 (5.0-9.0); SPECIFIC GRAVITY >= 1.030 (1.005-1.030); UROBILINOGEN 0.2 E.U./dl (0.2-1.0)
[2019-02-03 09:26] LABS: BACTERIA TRACE
[2019-02-03 12:00] VITALS: BP 114/50
[2019-02-03 16:00] VITALS: BP 123/92
--- NOTE | 2019-02-03 18:26 | NUR ---
PATIENT C/O OF BILATERAL SHOULDER PAIN, THAT RADIATES ACROSS HER BREAST BONE, SHE IS ALSO REPORTING NERVOUSNESS MEDICATED WITH DIAZEPAM AND TYLENOL ORDERED
--- NOTE | 2019-02-03 19:05 | NUR ---
Patient resting quietly with COMPLAINTS OF CONSTIPATION, WILL BE MEDICATED WITH STOOL SOFTNER. Respirations easy and regular, WHZ NOTED. Vital signs stable. No overt distress. CALL LIGHT WITHIN REACH TARIQ GARSIA
[2019-02-03 20:00] VITALS: BP 117/54
--- NOTE | 2019-02-03 21:08 | NUR ---
PATIENT MEDICATED WITH DULCOLAX FOR C/O CONSTIPATION. WILL MONITOR
--- NOTE | 2019-02-03 23:19 | NUR ---
PT REQUESTING SLEEPING MEDICATION. ADMINISTERED PRN RESTORIL ORDERED. WILL CHECK EFFECTIVENESS. CALL LIGHT WITHIN REACH.
[2019-02-04] VITALS: BP 116/63
--- NOTE | 2019-02-04 07:00 | NUR ---
ARRIVED ON SHIFT, PATIENT RESTING QUIETLY WITH EYES CLOSED, WHITE BOARD UPDATED.
--- NOTE | 2019-02-04 07:27 | NUR ---
Shift chart check completed.
[2019-02-04 08:00] VITALS: BP 122/70; BP 154/70
[2019-02-04 10:32] LABS: HEMATOCRIT 33.3 % (37.0-47.0); HEMOGLOBIN 10.1 g/dl (12.0-16.0); MEAN CELL VOLUME 94.9 fl (81.0-99.0); MEAN CORPUSCULAR HGB 28.8 pg (27.0-31.0); MEAN CORPUSCULAR HGB CONC 30.3 g/dl (33.0-37.0); MEAN PLATELET VOLUME 11.7 fl (9.6-12.3); PLATELET COUNT AUTOMATED 211 10*3/uL (130-400); RED BLOOD COUNT 3.51 10*6/uL (4.10-5.10); RED CELL DISTRI WIDTH 15.2 % (0-14.5)
[2019-02-04 10:46] LABS: CREATININE 1.15 mg/dL (0.55-1.02); POTASSIUM 4.1 mmol/L (3.5-5.1)
[2019-02-04 10:54] LABS: PLATELET SUFFICIENCY NORMAL (NORMAL); TOTAL CELLS COUNTED 100 #CELLS
[2019-02-04 12:00] VITALS: BP 140/52
[2019-02-04 16:00] VITALS: BP 144/59
--- NOTE | 2019-02-04 19:33 | NUR ---
CALL PLACED TO [facility], SPOKE WITH LOVE, ADVISED OF BEHAVIORAL HEALTH CONSULT.
[2019-02-04 20:00] VITALS: BP 144/84
--- NOTE | 2019-02-04 20:48 | NUR ---
DR. CALDERON NOTIFIED OF PT'S REQUEST FOR TUMS. T.O. GIVEN FOR TUMS 1000MG PO X1 NOW.
--- NOTE | 2019-02-04 22:16 | NUR ---
PATIENT MEDICATED WITH RESTORIL PER PRN ORDER FOR C/O INABILITY TO SLEEP. SEE EMAR. REINFORCED USE OF CALL LIGHT.
--- NOTE | 2019-02-04 22:30 | NUR ---
DR. CALDERON NOTIFIED AT PATIENT REQUEST THAT SHE FEELS ANXIOUS AND NEEDS SOMETHING FOR HER NERVES.
[2019-02-05] VITALS: BP 143/58
[2019-02-05 06:47] LABS: HEMATOCRIT 34.5 % (37.0-47.0); HEMOGLOBIN 10.3 g/dl (12.0-16.0); MEAN CORPUSCULAR HGB 27.8 pg (27.0-31.0); MEAN CORPUSCULAR HGB CONC 29.9 g/dl (33.0-37.0); PLATELET COUNT AUTOMATED 220 10*3/uL (130-400); RED BLOOD COUNT 3.71 10*6/uL (4.10-5.10); RED CELL DISTRI WIDTH 14.7 % (0-14.5); WHITE BLOOD COUNT 13.6 10*3/uL (4.8-10.8)
--- NOTE | 2019-02-05 07:00 | NUR ---
ARRIVED ON SHIFT, INTRODDUCED SELF TO PATIENT, WHITE BOARD UPDATED, NO NEEDS VOICED AT THIS TIME.
[2019-02-05 07:06] LABS: CREATININE 1.21 mg/dL (0.55-1.02); POTASSIUM 4.1 mmol/L (3.5-5.1)
[2019-02-05 07:18] LABS: PLATELET SUFFICIENCY NORMAL (NORMAL); POLYCHROMASIA SLIGHT; TOTAL CELLS COUNTED 100 #CELLS
--- NOTE | 2019-02-05 07:30 | NUR ---
Shift chart check completed.
[2019-02-05 08:00] VITALS: BP 130/70; BP 138/54
--- NOTE | 2019-02-05 11:49 | NUR ---
CALL PLACED TO DR. VANG TO REPORT ANNIKA, PATIENT HAD 46 PVC'S IN 1 MINUTE, SHE DENIES ANY CHEST PAIN, SHE DOES HAVE DYSPNEA WITH AMBULATION TO BATHROOM.
[2019-02-05 12:00] VITALS: BP 138/70
--- NOTE | 2019-02-05 13:19 | NUR ---
CALL PLACED TO DR. ENGLISH, ORDERS RECEIVED FOR MAGNISIUM LEVEL, AND IF LES THAN 1.8 GIVE TWO DOSES OF MAGNISUM OXIDE
[2019-02-05 16:00] VITALS: BP 142/53
[2019-02-05 20:00] VITALS: BP 152/61
--- NOTE | 2019-02-06 04:54 | NUR ---
24hr chart check completed
[2019-02-06 08:00] VITALS: BP 150/70
--- NOTE | 2019-02-06 08:00 | NUR ---
PT SLEEPING IN BED. RESP-EASY AND REGULAR. AWAKENS EASILY. DROWSY. NO C/O AT THIS TIME. CALL LIGHT IN REACH. SEE SHIFT ASSESSMENT.
--- NOTE | 2019-02-06 10:00 | NUR ---
PT SLEEPING IN BED. RESP-EASY AND REGULAR. CALL LIGHT IN REACH.
[2019-02-06 12:00] VITALS: BP 129/86
--- NOTE | 2019-02-06 14:24 | NUR ---
PT C/O HEADACHE, RATES PAIN 8 ON PAIN SCALE 0-10. MEDICATED WITH TYLENOL PO PER PRN ORDER, SEE EMAR. CALL LIGHT IN REACH. VISITOR AT HER SIDE.
--- NOTE | 2019-02-06 15:19 | NUR ---
CALLED DR. VANG REGARDING PT MONITOR TO RENEW. HE WILL BE HERE IN A LITTLE BIT.
[2019-02-06 16:00] VITALS: BP 129/48
--- NOTE | 2019-02-06 16:00 | NUR ---
PT RESTING IN BED. RESP-EASY AND REGULAR. VISITOR AT HER SIDE. NO C/O AT THIS TIME. BSG-231, SEE EMAR. CALL LIGHT IN REACH. SEE SHIFT ASSESSMENT.
--- NOTE | 2019-02-06 19:13 | NUR ---
HERE TO SEE PATIENT. STATES PATIENT CAN BE DISCHARGED FROM HIS STANDPOINT. STATES HE WANTS PATIENT TO FOLLOW UP OUTPATIENT FOR EXERCISE CARDIOLYTE STRESS TEST.
[2019-02-06 20:00] VITALS: BP 150/82
--- NOTE | 2019-02-06 22:11 | NUR ---
PO RESTORIL ADMINISTERED PER PRN ORDER FOR C/O INSOMNIA. PT STATES EARLIER ATIVAN DID NOT HELP RELAX HER. WILL MONITOR EFFECTIVENESS. 9 UNITS OF INSULIN GIVEN PER ORDER FOR BSG 338. PT EDUCATED ABOUT S/S OF HYPOGLYCEMIA AND INSTRUCTED TO CALL RN IF NEW SYMPTOMS PRESENT. PT VERBALIZES UNDERSTANDING. CALL LIGHT IN REACH.
[2019-02-07] VITALS: BP 151/73
--- NOTE | 2019-02-07 02:50 | NUR ---
PT HAD EPISODE OF INCONTINENCE. PT CLEANED UP, NEW GOWN/LINENS/BRIEF PROVIDED. NO OTHER NEEDS/COMPLAINTS VOICED AT THIS TIME. WILL MONITOR. CALL LIGHT IN REACH.
[2019-02-07 06:34] LABS: HEMATOCRIT 37.1 % (37.0-47.0); HEMOGLOBIN 11.3 g/dl (12.0-16.0); MEAN CELL VOLUME 91.8 fl (81.0-99.0); MEAN CORPUSCULAR HGB CONC 30.5 g/dl (33.0-37.0); MEAN PLATELET VOLUME 11.5 fl (9.6-12.3); NUCLEATED RED BLOOD CELL 0.1 10*3/uL (0.0-0.0); NUCLEATED RED BLOOD CELL 0.5 % (0.0-0.0); PLATELET COUNT AUTOMATED 217 10*3/uL (130-400); RED BLOOD COUNT 4.04 10*6/uL (4.10-5.10); RED CELL DISTRI WIDTH 14.4 % (0-14.5); WHITE BLOOD COUNT 13.3 10*3/uL (4.8-10.8)
[2019-02-07 06:41] LABS: BUN 22 mg/dl (7-24); CHLORIDE 103 mmol/L (98-107); CREATININE 1.04 mg/dL (0.55-1.02); POTASSIUM 4.3 mmol/L (3.5-5.1); SODIUM 137 mmol/L (136-145)
[2019-02-07 06:55] LABS: PLATELET SUFFICIENCY NORMAL (NORMAL); POLYCHROMASIA SLIGHT; TOTAL CELLS COUNTED 100 #CELLS
[2019-02-07 07:40] VITALS: BP 152/88
--- NOTE | 2019-02-07 07:40 | NUR ---
ASSESSMENT COMPLETED AND DOCUMENTED. PT WENT DOWN FOR A CHEST X-RAY AND BACK IN BED. PT STATES NO COMPLAINTS AT THIS TIME. BUFFY ODONNELL [facility]
--- NOTE | 2019-02-07 08:02 | NUR ---
PT RESTING IN BED TALKING ON THE PHONE. RESP-EASY AND REGULAR. NO C/O AT THIS TIME. LUNGS DIMINISHED T/O. BS HYPOACTIVE. PROD COUGH FOR LITTLE YELLOW SPUTUM. CALL LIGHT IN REACH. STUDENT NURSES WITH PT.
--- NOTE | 2019-02-07 09:00 | NUR ---
Banquet Line Cook in to see patient. No new needs or request at this time. Family at bedside. She denies any home needs. Treating COPD. Possible discharge to home today.
--- NOTE | 2019-02-07 09:30 | NUR ---
PT RESTING IN BED. NO COMPLAINTS AT THIS TIME. BUFFY ODONNELL SPNR[facility]
--- NOTE | 2019-02-07 10:04 | NUR ---
PT SLEEPING, FAMILY MEMBER PRESENT IN ROOM VISTING. BUFFY ODONNELL SPNR[facility]
[2019-02-07 12:15] VITALS: BP 160/78
--- NOTE | 2019-02-07 12:15 | NUR ---
ASSESSMENT COMPLETED AND DOCUMENTED. PT SLEEPING IN BED, FAMILY MEMBER STILL VISTING. NO SIGNS OF DISTRESS AT THIS TIME. BUFFY ODONNELL SPNRCC
--- NOTE | 2019-02-07 13:17 | NUR ---
PT RESTING IN BED. REFUSED BATH, SAID BOYFRIEND WAS GOING TO HELP HER. REPORT GIVEN TO EVERT. [facility]
--- NOTE | 2019-02-07 15:50 | NUR ---
PT RESTING IN BED WITH VISITORS AT HER SIDE. BSG-166, SEE EMAR. SKIN W/D. NO C/O AT THIS TIME. CALL LIGHT IN REACH. SEE SHIFT ASSESSMENT.
[2019-02-07 16:00] VITALS: BP 130/59
--- NOTE | 2019-02-07 18:00 | NUR ---
TOLERATED ROUTINE MED WITH NO PROBLEM. NO C/O AT THIS TIME. CALL LIGHT IN REACH.
[2019-02-07 20:00] VITALS: BP 108/63
--- NOTE | 2019-02-07 22:21 | NUR ---
PT MEDICATED WITH PO RESTORIL. STATES PO ATIVAN GIVEN EARLIER HAS NOT BEEN EFFECTIVE IN HELPING HER SLEEP. WILL MONITOR EFFECTIVENESS. PT EDUCATED ABOUT NPO STATUS AFTER MIDNIGHT FOR STRESS TEST IN AM. 9 UNITS INSULIN STILL ADMINISTERED FOR BSG 330. PT EDUCATED ON S/S OF HYPOGLYCEMIA AND INSTRUCTED TO NOTIFY RN IF NEW/WORSENING SYMPTOMS PRESENT. VERBALIZES UNDERSTANDING. WILL MONITOR. CALL LIGHT IN REACH.
[2019-02-08] VITALS: BP 148/64
--- NOTE | 2019-02-08 05:54 | NUR ---
PT TAKEN OFF FLOOR VIA WHEELCHAIR FOR STRESS TEST.
--- NOTE | 2019-02-08 07:29 | NUR ---
INFORMED CONSENT SIGNED FOR LEXISCAN STRESS TEST WITH DR. VELEZ. RESTING EKG NSR, HR 63, BP 140/70. PULSE OX 98% AND BREATH SOUNDS CLEAR BUT DEMINISHED BILATERALLY. COMPLETED ONE MINUTE OF LEXISCAN PROTOCOL RECEIVING LEXISCAN 0.4MG OVER 10 SECONDS. RARE PVC NOTED WITH NO ST CHANGES. PT C/O FEELING WEIRD. LAST RECOVERY HR 104, BP 130/84. WAITING NUCLEAR SCANNING IN STABLE CONDITION.
--- NOTE | 2019-02-08 09:00 | NUR ---
Dialysis Equipment Technician in to see patient. No new needs or request at this time. She denies any home needs. Discussed discharge planning with Dr. Dumont. Plan is to discharge patient to home today.
[2019-02-08 09:10] VITALS: BP 132/80
--- NOTE | 2019-02-08 09:10 | NUR ---
PT RESTING IN BED. HAD STRESS TEST THIS AM. NO C/O AT THIS TIME. TOLERATED ROUTINE MEDS WITH NO PROBLEM. CALL LIGHT IN REACH. SEE SHIFT ASSESSMENT.
[2019-02-08 09:30] LABS: HEMATOCRIT 38.1 % (37.0-47.0); HEMOGLOBIN 11.9 g/dl (12.0-16.0); MEAN CELL VOLUME 91.6 fl (81.0-99.0); MEAN CORPUSCULAR HGB 28.6 pg (27.0-31.0); MEAN CORPUSCULAR HGB CONC 31.2 g/dl (33.0-37.0); MEAN PLATELET VOLUME 11.4 fl (9.6-12.3); NUCLEATED RED BLOOD CELL 0.3 % (0.0-0.0); PLATELET COUNT AUTOMATED 197 10*3/uL (130-400); RED BLOOD COUNT 4.16 10*6/uL (4.10-5.10); RED CELL DISTRI WIDTH 14.4 % (0-14.5); WHITE BLOOD COUNT 14.8 10*3/uL (4.8-10.8)
[2019-02-08 09:41] LABS: BUN 27 mg/dl (7-24); CHLORIDE 106 mmol/L (98-107); CREATININE 1.06 mg/dL (0.55-1.02); POTASSIUM 3.8 mmol/L (3.5-5.1); SODIUM 137 mmol/L (136-145)
[2019-02-08 09:53] LABS: POLYCHROMASIA SLIGHT; TOTAL CELLS COUNTED 100 #CELLS
[2019-02-08 09:54] LABS: PLATELET SUFFICIENCY NORMAL (NORMAL); ROULEAUX SLIGHT
[2019-02-08] MEDS ORDERED: PREDNISONE10 MG PO (10:00)
[2019-02-08] MEDS ORDERED: LIPITOR40 MG PO (10:02)
--- NOTE | 2019-02-08 11:17 | NUR ---
Discharge instructions reviewed with patient/family. Patient receptive and verbalizes understanding. Follow-up care arranged. Written instructions given to patient/family. HEPLOCK REMOVED 2X2 APPLIED. HOLTER REMOVED. ESCORTED VIA WHEELCHAIR FOR DISCHARGE. ROMEO SIDDIQUI R
== END 2019-02-08 11:17 | disposition home or self-care (01) | DRG 720 ==
LOC: ED 03:01 → EDHOLD 05:16 → 4E 05:16
PROVIDERS: Emergency Medicine; Internal Medicine; Student in an Organized Health Care Education/Training Program; ADMIT Internal Medicine
DX: A41.9 Sepsis, unspecified organism (principal); J18.9 Pneumonia, unspecified organism; R65.20 Severe sepsis without septic shock; J96.00 Acute respiratory failure, unspecified whether with hypoxia or hypercapnia; J44.1 Chronic obstructive pulmonary disease with (acute) exacerbation; E66.01 Morbid (severe) obesity due to excess calories; D64.9 Anemia, unspecified; F32.9 Major depressive disorder, single episode, unspecified; J44.0 Chronic obstructive pulmonary disease with (acute) lower respiratory infection; K21.9 Gastro-esophageal reflux disease without esophagitis; E11.65 Type 2 diabetes mellitus with hyperglycemia; N18.3 Chronic kidney disease, stage 3 (moderate); F17.210 Nicotine dependence, cigarettes, uncomplicated; F41.0 Panic disorder [episodic paroxysmal anxiety]; E11.22 Type 2 diabetes mellitus with diabetic chronic kidney disease; I25.10 Atherosclerotic heart disease of native coronary artery without angina pectoris; G93.41 Metabolic encephalopathy; I49.3 Ventricular premature depolarization; E78.5 Hyperlipidemia, unspecified; I34.0 Nonrheumatic mitral (valve) insufficiency; F41.1 Generalized anxiety disorder; I13.0 Hypertensive heart and chronic kidney disease with heart failure and stage 1 through stage 4 chronic kidney disease, or unspecified chronic kidney disease; J20.9 Acute bronchitis, unspecified; J45.901 Unspecified asthma with (acute) exacerbation; I50.20 Unspecified systolic (congestive) heart failure; T38.0X5A Adverse effect of glucocorticoids and synthetic analogues, initial encounter; Y92.89 Other specified places as the place of occurrence of the external cause; Z88.6 Allergy status to analgesic agent; Z88.0 Allergy status to penicillin; Z88.8 Allergy status to other drugs, medicaments and biological substances; Z88.2 Allergy status to sulfonamides; Z88.1 Allergy status to other antibiotic agents; Z90.49 Acquired absence of other specified parts of digestive tract; Z98.891 History of uterine scar from previous surgery; Z90.710 Acquired absence of both cervix and uterus; Z83.3 Family history of diabetes mellitus; Z80.8 Family history of malignant neoplasm of other organs or systems; Z82.49 Family history of ischemic heart disease and other diseases of the circulatory system; Z83.438 Family history of other disorder of lipoprotein metabolism and other lipidemia; Z79.899 Other long term (current) drug therapy; Z79.84 Long term (current) use of oral hypoglycemic drugs; Z71.6 Tobacco abuse counseling; Z68.39 Body mass index [BMI] 39.0-39.9, adult

== ENCOUNTER → 2019-05-26 | Outpatient (CLI) | payer OTHER ==
[~2019-05-26] MED LIST changes: +LIPITOR40 MG PO; +TRAD5TAB1 PO
[2019-05-26 17:07] LABS: BASO # 0.1 10*3/uL (0.0-0.1); BASO % 0.5 % (0.0-1.0); EOS # 0.4 10*3/uL (0.0-0.4); HEMATOCRIT 41.2 % (37.0-47.0); HEMOGLOBIN 12.5 g/dl (12.0-16.0); LYMPH # 2.5 10*3/uL (1.3-4.4); LYMPH % 26.4 % (27.0-41.0); MEAN CELL VOLUME 92.4 fl (81.0-99.0); MEAN CORPUSCULAR HGB CONC 30.3 g/dl (33.0-37.0); MEAN PLATELET VOLUME 11.3 fl (9.6-12.3); MONO # 0.6 10*3/uL (0.1-1.0); MONO % 6.9 % (3.0-9.0); NEUT # 5.7 10*3/uL (2.3-7.9); NEUT % 61.8 % (47.0-73.0); PLATELET COUNT AUTOMATED 270 10*3/uL (130-400); RED BLOOD COUNT 4.46 10*6/uL (4.10-5.10); RED CELL DISTRI WIDTH 14.8 % (0-14.5); WHITE BLOOD COUNT 9.3 10*3/uL (4.8-10.8)
[2019-05-26 17:41] LABS: ALKALINE PHOSPHATASE 106 U/L (45-117); BUN 15 mg/dl (7-24); CHLORIDE 106 mmol/L (98-107); CREATININE 1.05 mg/dL (0.55-1.02); POTASSIUM 3.7 mmol/L (3.5-5.1); SGOT/AST 10 IU/L (3-35); SGPT/ALT 29 U/L (12-78); SODIUM 140 mmol/L (136-145); TOTAL PROTEIN 7.8 gm/dL (6.4-8.2)
[2019-05-26 18:58] LABS: BILIRUBIN NEGATIVE (NEGATIVE); BLOOD NEGATIVE (NEGATIVE); CLARITY CLEAR (CLEAR); COLOR STRAW (YELLOW); GLUCOSE NEGATIVE (NEGATIVE); KETONE NEGATIVE (NEGATIVE); LEUKO ESTERASE NEGATIVE (NEGATIVE); NITRITE NEGATIVE (NEGATIVE); UROBILINOGEN 0.2 E.U./dl (0.2-1.0)
== END | disposition home or self-care (01) ==
LOC: LAB 15:32 → US 16:00
PROVIDERS: Nurse Practitioner Family; Urology
DX: N39.0 Urinary tract infection, site not specified (principal); R31.9 Hematuria, unspecified; I10 Essential (primary) hypertension; N28.89 Other specified disorders of kidney and ureter

== ENCOUNTER → 2019-10-10 | Outpatient (CLI) | payer OTHER ==
[2019-10-10 14:34] LABS: CLARITY CLEAR (CLEAR); COLOR YELLOW (YELLOW)
[2019-10-10 14:36] LABS: BILIRUBIN NEGATIVE (NEGATIVE); BLOOD NEGATIVE (NEGATIVE); GLUCOSE NEGATIVE (NEGATIVE); KETONE NEGATIVE (NEGATIVE); NITRITE NEGATIVE (NEGATIVE); PH 7.5 (5.0-9.0); SPECIFIC GRAVITY 1.005 (1.005-1.030); UROBILINOGEN 0.2 E.U./dl (0.2-1.0)
[2019-10-10 14:39] LABS: LEUKO ESTERASE TRACE (NEGATIVE)
[2019-10-10 14:45] LABS: BACTERIA 1+
[2019-10-10 14:48] LABS: FREE T4 1.32 ng/dl (0.76-1.46)
[2019-10-10 14:53] LABS: THYROID STIM HORMONE (HS) 0.451 uIU/ml (0.358-4.75)
[2019-10-10 14:57] LABS: VITAMIN D, 25-HYDROXY 30.4 ng/mL (30-100)
== END | disposition home or self-care (01) ==
LOC: LAB 13:19
PROVIDERS: Internal Medicine Nephrology
DX: E03.9 Hypothyroidism, unspecified (principal); E55.9 Vitamin D deficiency, unspecified; N39.3 Stress incontinence (female) (male)

== ENCOUNTER → 2019-11-17 | Outpatient (CLI) | payer OTHER | END | disposition home or self-care (01) | LOC: RAD 11:49 | PROVIDERS: ATTEND Internal Medicine | DX: M54.41 Lumbago with sciatica, right side (principal) ==

== ENCOUNTER → 2020-04-18 | Outpatient (CLI) | payer OTHER ==
[~2020-04-18] MED LIST changes: +EFFEXOR XR75 M1 PO; +GLUCOTROL XL5 MG PO; +METFORMIN HYDR500 MG PO; +NAPROXEN250 MG PO; +OMEPRAZOLE20 M2 PO; +OXYBUTYNIN ER15 MG PO; +VITAMIN D250 MC1 PO
== END | disposition home or self-care (01) ==
LOC: MAMMO 03-07 11:00
PROVIDERS: ATTEND Internal Medicine
DX: Z12.31 Encounter for screening mammogram for malignant neoplasm of breast (principal)

== ENCOUNTER 2020-04-26 03:49 | Inpatient (IN) | payer OTHER ==
[2020-04-26] VITALS (8 sets, daily range): BP systolic 107–203; BP diastolic 61–114
[~2020-04-26] VITALS: Ht 172.7 cm; Wt 110.3 kg
[~2020-04-26 03:49] MED LIST changes: -EFFEXOR XR75 M1 PO; -GLUCOTROL XL5 MG PO; -METFORMIN HYDR500 MG PO; -NAPROXEN250 MG PO; -OMEPRAZOLE20 M2 PO; -OXYBUTYNIN ER15 MG PO; -VITAMIN D250 MC1 PO
[2020-04-26 04:27] LABS: BASO # 0.1 10*3/uL (0.0-0.1); BASO % 0.4 % (0.0-1.0); EOS # 0.4 10*3/uL (0.0-0.4); EOS % 3.3 % (1.0-4.0); HEMATOCRIT 40.1 % (37.0-47.0); LYMPH # 2.9 10*3/uL (1.3-4.4); LYMPH % 24.7 % (27.0-41.0); MEAN CELL VOLUME 88.3 fl (81.0-99.0); MEAN CORPUSCULAR HGB 26.4 pg (27.0-31.0); MEAN CORPUSCULAR HGB CONC 29.9 g/dl (33.0-37.0); MEAN PLATELET VOLUME 11.8 fl (9.6-12.3); MONO # 0.7 10*3/uL (0.1-1.0); MONO % 5.7 % (3.0-9.0); NEUT # 7.7 10*3/uL (2.3-7.9); NEUT % 65.4 % (47.0-73.0); PLATELET COUNT AUTOMATED 244 10*3/uL (130-400); RED BLOOD COUNT 4.54 10*6/uL (4.10-5.10); RED CELL DISTRI WIDTH 15.5 % (0-14.5); WHITE BLOOD COUNT 11.7 10*3/uL (4.8-10.8)
[2020-04-26 04:42] LABS: ALBUMIN 3.8 gm/dl (3.1-4.5); ALKALINE PHOSPHATASE 111 U/L (45-117); BUN 9 mg/dl (7-24); CHLORIDE 107 mmol/L (98-107); CREATININE 1.13 mg/dL (0.55-1.02); POTASSIUM 3.6 mmol/L (3.5-5.1); SGOT/AST 10 IU/L (3-35); SGPT/ALT 21 U/L (12-78); SODIUM 140 mmol/L (136-145); TOTAL PROTEIN 7.8 gm/dL (6.4-8.2)
[2020-04-26] MEDS ORDERED: METFORMIN HYDR500 MG PO (18:50)
[2020-04-26] MEDS ORDERED: OXYBUTYNIN ER15 MG PO (22:36)
[2020-04-26] MEDS ORDERED: OMEPRAZOLE20 M2 PO (22:37)
[2020-04-26] MEDS ORDERED: GLUCOTROL XL5 MG PO (22:37)
[2020-04-26] MEDS ORDERED: VITAMIN D250 MC1 PO (22:38)
[2020-04-26] MEDS ORDERED: EFFEXOR XR75 M1 PO (22:55)
[2020-04-27] VITALS: BP 126/61
[2020-04-27 05:59] LABS: ALBUMIN 3.5 gm/dl (3.1-4.5); BUN 13 mg/dl (7-24); CHLORIDE 108 mmol/L (98-107); POTASSIUM 4.5 mmol/L (3.5-5.1); SODIUM 139 mmol/L (136-145)
[2020-04-27 06:05] LABS: ALKALINE PHOSPHATASE 104 U/L (45-117); CHOLESTEROL 164 mg/dL (<200); CREATININE 0.97 mg/dL (0.55-1.02); HDL CHOLESTEROL 62 mg/dl (40-60); LDL CHOLESTEROL 88 mg/dL (9-159); SGOT/AST 7 IU/L (3-35); SGPT/ALT 20 U/L (12-78); THYROID STIM HORMONE (HS) 0.435 uIU/ml (0.358-4.75); TOTAL PROTEIN 7.3 gm/dL (6.4-8.2); TRIGLYCERIDES 69 mg/dl (<150); VLDL CHOLESTEROL 14 mg/dL (6-40)
[2020-04-27 06:24] LABS: HEMATOCRIT 37.7 % (37.0-47.0); MEAN CELL VOLUME 87.9 fl (81.0-99.0); MEAN CORPUSCULAR HGB 26.1 pg (27.0-31.0); MEAN CORPUSCULAR HGB CONC 29.7 g/dl (33.0-37.0); MEAN PLATELET VOLUME 12.1 fl (9.6-12.3); PLATELET COUNT AUTOMATED 257 10*3/uL (130-400); RED BLOOD COUNT 4.29 10*6/uL (4.10-5.10); RED CELL DISTRI WIDTH 15.9 % (0-14.5)
[2020-04-27 07:02] LABS: TOTAL CELLS COUNTED 100 #CELLS
[2020-04-27 07:20] LABS: OVALOCYTES FEW; PLATELET SUFFICIENCY NORMAL (NORMAL); POLYCHROMASIA SLIGHT
[2020-04-27 08:00] VITALS: BP 139/76
[2020-04-27 12:00] VITALS: BP 121/53; BP 124/50
[2020-04-27 16:00] VITALS: BP 92/76
[2020-04-27 20:00] VITALS: BP 133/79
[2020-04-28] VITALS: BP 107/49
[2020-04-28 07:19] LABS: HEMATOCRIT 35.1 % (37.0-47.0); MEAN CELL VOLUME 88.4 fl (81.0-99.0); MEAN CORPUSCULAR HGB 26.2 pg (27.0-31.0); MEAN CORPUSCULAR HGB CONC 29.6 g/dl (33.0-37.0); PLATELET COUNT AUTOMATED 271 10*3/uL (130-400); RED BLOOD COUNT 3.97 10*6/uL (4.10-5.10); RED CELL DISTRI WIDTH 16.1 % (0-14.5); WHITE BLOOD COUNT 19.2 10*3/uL (4.8-10.8)
[2020-04-28 07:40] LABS: ALBUMIN 3.3 gm/dl (3.1-4.5); ALKALINE PHOSPHATASE 93 U/L (45-117); CHLORIDE 107 mmol/L (98-107); POTASSIUM 4.7 mmol/L (3.5-5.1); SGOT/AST 4 IU/L (3-35); SGPT/ALT 17 U/L (12-78); SODIUM 138 mmol/L (136-145); TOTAL PROTEIN 6.9 gm/dL (6.4-8.2)
[2020-04-28 07:41] LABS: BUN 25 mg/dl (7-24)
[2020-04-28 07:57] LABS: BURR CELLS FEW; OVALOCYTES FEW; PLATELET SUFFICIENCY NORMAL (NORMAL); POLYCHROMASIA SLIGHT; TOTAL CELLS COUNTED 100 #CELLS
[2020-04-28 08:00] VITALS: BP 111/52
[2020-04-28 12:00] VITALS: BP 134/84
[2020-04-28 16:00] VITALS: BP 140/48
[2020-04-28 20:00] VITALS: BP 129/50
[2020-04-29] VITALS: BP 119/55
[2020-04-29 08:00] VITALS: BP 109/69
[2020-04-29 12:00] VITALS: BP 145/51
[2020-04-29 16:00] VITALS: BP 112/93
[2020-04-29 20:00] VITALS: BP 141/86
[2020-04-30] VITALS: BP 125/68
[2020-04-30 06:54] LABS: HEMATOCRIT 38.5 % (37.0-47.0); MEAN CELL VOLUME 87.3 fl (81.0-99.0); MEAN CORPUSCULAR HGB 26.1 pg (27.0-31.0); MEAN CORPUSCULAR HGB CONC 29.9 g/dl (33.0-37.0); MEAN PLATELET VOLUME 11.7 fl (9.6-12.3); NUCLEATED RED BLOOD CELL 0.1 % (0.0-0.0); PLATELET COUNT AUTOMATED 293 10*3/uL (130-400); RED BLOOD COUNT 4.41 10*6/uL (4.10-5.10); RED CELL DISTRI WIDTH 15.9 % (0-14.5); WHITE BLOOD COUNT 13.3 10*3/uL (4.8-10.8)
[2020-04-30 07:12] LABS: CREATININE 1.22 mg/dL (0.55-1.02); POTASSIUM 4.1 mmol/L (3.5-5.1)
[2020-04-30 07:26] LABS: OVALOCYTES FEW; PLATELET SUFFICIENCY NORMAL (NORMAL); POLYCHROMASIA SLIGHT; TOTAL CELLS COUNTED 100 #CELLS
[2020-04-30 08:00] VITALS: BP 139/76
[2020-04-30 12:00] VITALS: BP 140/70
[2020-04-30 16:02] VITALS: BP 134/81
[2020-04-30] MEDS ORDERED: MEDROL DOSEPAK4 MG PO (18:02)
[2020-04-30] MEDS ORDERED: DOXYCYCLINE100 M3 PO (18:02)
== END 2020-04-30 20:20 | disposition home or self-care (01) | DRG 139 ==
LOC: ED 03:49 → EDHOLD 05:43 → 4E 05:43
PROVIDERS: Emergency Medicine; Student in an Organized Health Care Education/Training Program; ADMIT Internal Medicine; ATTEND Internal Medicine
DX: J12.9 Viral pneumonia, unspecified (principal); J44.0 Chronic obstructive pulmonary disease with (acute) lower respiratory infection; J44.1 Chronic obstructive pulmonary disease with (acute) exacerbation; J96.00 Acute respiratory failure, unspecified whether with hypoxia or hypercapnia; F41.8 Other specified anxiety disorders; N18.30 Chronic kidney disease, stage 3 unspecified; I12.9 Hypertensive chronic kidney disease with stage 1 through stage 4 chronic kidney disease, or unspecified chronic kidney disease; F17.210 Nicotine dependence, cigarettes, uncomplicated; E11.22 Type 2 diabetes mellitus with diabetic chronic kidney disease; K21.9 Gastro-esophageal reflux disease without esophagitis; Z20.822 Contact with and (suspected) exposure to COVID-19; E11.65 Type 2 diabetes mellitus with hyperglycemia; Z71.6 Tobacco abuse counseling; Z90.710 Acquired absence of both cervix and uterus; Z98.891 History of uterine scar from previous surgery; Z90.49 Acquired absence of other specified parts of digestive tract; Z82.49 Family history of ischemic heart disease and other diseases of the circulatory system; Z88.2 Allergy status to sulfonamides; Z88.0 Allergy status to penicillin; Z88.5 Allergy status to narcotic agent; Z88.1 Allergy status to other antibiotic agents; Z88.8 Allergy status to other drugs, medicaments and biological substances; Z79.51 Long term (current) use of inhaled steroids; Z79.84 Long term (current) use of oral hypoglycemic drugs; Z79.899 Other long term (current) drug therapy; R65.11 Systemic inflammatory response syndrome (SIRS) of non-infectious origin with acute organ dysfunction

== ENCOUNTER → 2020-05-03 | Outpatient (CLI) | payer OTHER ==
[~2020-05-03] MED LIST changes: +EFFEXOR XR75 M1 PO; +GLUCOTROL XL5 MG PO; +METFORMIN HYDR500 MG PO; +NAPROXEN250 MG PO; +OMEPRAZOLE20 M2 PO; +OXYBUTYNIN ER15 MG PO; +VITAMIN D250 MC1 PO
[2020-05-03 16:05] LABS: HEMATOCRIT 41.7 % (37.0-47.0); MEAN CELL VOLUME 86.3 fl (81.0-99.0); MEAN CORPUSCULAR HGB 26.3 pg (27.0-31.0); MEAN CORPUSCULAR HGB CONC 30.5 g/dl (33.0-37.0); MEAN PLATELET VOLUME 10.8 fl (9.6-12.3); PLATELET COUNT AUTOMATED 278 10*3/uL (130-400); RED BLOOD COUNT 4.83 10*6/uL (4.10-5.10); RED CELL DISTRI WIDTH 15.6 % (0-14.5); WHITE BLOOD COUNT 13.6 10*3/uL (4.8-10.8)
[2020-05-03 16:27] LABS: PLATELET SUFFICIENCY NORMAL (NORMAL); TOTAL CELLS COUNTED 100 #CELLS
[2020-05-03 16:35] LABS: ALBUMIN 3.3 gm/dl (3.1-4.5); CREATININE 1.17 mg/dL (0.55-1.02); FREE T4 1.05 ng/dl (0.76-1.46); POTASSIUM 3.8 mmol/L (3.5-5.1); TOTAL PROTEIN 6.6 gm/dL (6.4-8.2)
[2020-05-03 16:46] LABS: THYROID STIM HORMONE (HS) 4.56 uIU/ml (0.358-4.75)
== END | disposition home or self-care (01) ==
LOC: LAB 15:42
PROVIDERS: ATTEND Internal Medicine
DX: E03.9 Hypothyroidism, unspecified (principal); R53.81 Other malaise

== ENCOUNTER 2020-05-22 20:56 | Emergency (ER) | payer OTHER ==
[~2020-05-22] VITALS: Ht 167.6 cm; Wt 106.6 kg
[~2020-05-22 20:56] MED LIST changes: -NAPROXEN250 MG PO
[2020-05-22 21:34] LABS: BASO # 0.1 10*3/uL (0.0-0.1); BASO % 0.8 % (0.0-1.0); EOS # 0.4 10*3/uL (0.0-0.4); EOS % 4.7 % (1.0-4.0); HEMATOCRIT 36.3 % (37.0-47.0); LYMPH # 2.7 10*3/uL (1.3-4.4); LYMPH % 29.9 % (27.0-41.0); MEAN CORPUSCULAR HGB 26.5 pg (27.0-31.0); MEAN CORPUSCULAR HGB CONC 29.8 g/dl (33.0-37.0); MEAN PLATELET VOLUME 11.1 fl (9.6-12.3); MONO # 0.6 10*3/uL (0.1-1.0); MONO % 6.8 % (3.0-9.0); NEUT # 5.1 10*3/uL (2.3-7.9); NEUT % 57.4 % (47.0-73.0); PLATELET COUNT AUTOMATED 270 10*3/uL (130-400); RED BLOOD COUNT 4.08 10*6/uL (4.10-5.10); RED CELL DISTRI WIDTH 16.7 % (0-14.5); WHITE BLOOD COUNT 8.9 10*3/uL (4.8-10.8)
[2020-05-22 21:45] LABS: ACT PARTIAL THROMBO TIME 28.1 SECONDS (20.0-32.1); INTERNATIONAL NORM RATIO 1.1 (2.0-3.5)
[2020-05-22 21:49] LABS: ALBUMIN 3.4 gm/dl (3.1-4.5); CREATININE 1.17 mg/dL (0.55-1.02); POTASSIUM 3.8 mmol/L (3.5-5.1)
[2020-05-22 21:50] LABS: TROPONIN I 0.02 ng/ml (<0.045)
[2020-05-22] MEDS ORDERED: NAPROXEN250 MG PO (22:10)
== END 2020-05-22 22:14 | disposition home or self-care (01) ==
LOC: ED 20:56
PROVIDERS: Internal Medicine
DX: M79.642 Pain in left hand (principal); I12.9 Hypertensive chronic kidney disease with stage 1 through stage 4 chronic kidney disease, or unspecified chronic kidney disease; E11.22 Type 2 diabetes mellitus with diabetic chronic kidney disease; N18.31 Chronic kidney disease, stage 3a; D63.1 Anemia in chronic kidney disease; E78.00 Pure hypercholesterolemia, unspecified; J45.909 Unspecified asthma, uncomplicated; K21.9 Gastro-esophageal reflux disease without esophagitis; F32.9 Major depressive disorder, single episode, unspecified; F41.9 Anxiety disorder, unspecified; Z88.2 Allergy status to sulfonamides; Z88.8 Allergy status to other drugs, medicaments and biological substances; Z88.6 Allergy status to analgesic agent; Z88.0 Allergy status to penicillin; Z79.899 Other long term (current) drug therapy; Z79.84 Long term (current) use of oral hypoglycemic drugs; Z79.2 Long term (current) use of antibiotics; Z90.49 Acquired absence of other specified parts of digestive tract; Z98.890 Other specified postprocedural states; Z95.818 Presence of other cardiac implants and grafts; Z90.711 Acquired absence of uterus with remaining cervical stump

== ENCOUNTER 2020-07-14 18:51 | Emergency (ER) | payer OTHER ==
[~2020-07-14] VITALS: Ht 167.6 cm; Wt 108.9 kg
[~2020-07-14 18:51] MED LIST changes: +NAPROXEN250 MG PO
[2020-07-14 19:43] LABS: BASO % 0.5 % (0.0-1.0); EOS # 0.1 10*3/uL (0.0-0.4); EOS % 1.6 % (1.0-4.0); HEMATOCRIT 35.9 % (37.0-47.0); LYMPH # 0.8 10*3/uL (1.3-4.4); LYMPH % 14.1 % (27.0-41.0); MEAN CELL VOLUME 84.5 fl (81.0-99.0); MEAN CORPUSCULAR HGB 25.9 pg (27.0-31.0); MEAN CORPUSCULAR HGB CONC 30.6 g/dl (33.0-37.0); MEAN PLATELET VOLUME 11.1 fl (9.6-12.3); MONO # 0.5 10*3/uL (0.1-1.0); MONO % 9.5 % (3.0-9.0); NEUT # 4.2 10*3/uL (2.3-7.9); NEUT % 73.8 % (47.0-73.0); PLATELET COUNT AUTOMATED 210 10*3/uL (130-400); RED BLOOD COUNT 4.25 10*6/uL (4.10-5.10); RED CELL DISTRI WIDTH 16.2 % (0-14.5); WHITE BLOOD COUNT 5.7 10*3/uL (4.8-10.8)
[2020-07-14 19:59] LABS: ALBUMIN 3.6 gm/dl (3.1-4.5); ALKALINE PHOSPHATASE 94 U/L (45-117); BUN 6 mg/dl (7-24); CHLORIDE 108 mmol/L (98-107); CREATININE 1.01 mg/dL (0.55-1.02); LIPASE 40 U/L (73-393); POTASSIUM 3.7 mmol/L (3.5-5.1); SGOT/AST 10 IU/L (3-35); SGPT/ALT 19 U/L (12-78); SODIUM 138 mmol/L (136-145)
[2020-07-14 20:50] LABS: BILIRUBIN Negative (Negative); BLOOD Negative (Negative); CLARITY Clear (Clear); COLOR Yellow (Yellow); GLUCOSE Negative (Negative); KETONE Negative (Negative); LEUKO ESTERASE Negative (Negative); NITRITE Negative (Negative); PH 6.5 (4.5-8.0); SPECIFIC GRAVITY 1.015 (1.001-1.030)
[2020-07-14 21:02] LABS: WBC 0-2 wbc/hpf (0-5)
[2020-07-14 21:03] LABS: BACTERIA TRACE; RBC 0-2 rbc/hpf (0-2)
== END 2020-07-15 00:40 | disposition home or self-care (01) ==
LOC: ED 18:51
PROVIDERS: Emergency Medicine
DX: R10.31 Right lower quadrant pain (principal); R10.11 Right upper quadrant pain; I12.9 Hypertensive chronic kidney disease with stage 1 through stage 4 chronic kidney disease, or unspecified chronic kidney disease; E11.22 Type 2 diabetes mellitus with diabetic chronic kidney disease; N18.31 Chronic kidney disease, stage 3a; I25.10 Atherosclerotic heart disease of native coronary artery without angina pectoris; J44.9 Chronic obstructive pulmonary disease, unspecified; F32.9 Major depressive disorder, single episode, unspecified; E78.5 Hyperlipidemia, unspecified; E66.01 Morbid (severe) obesity due to excess calories; Z88.0 Allergy status to penicillin; Z88.8 Allergy status to other drugs, medicaments and biological substances; Z88.2 Allergy status to sulfonamides; Z79.899 Other long term (current) drug therapy; Z79.84 Long term (current) use of oral hypoglycemic drugs; Z90.49 Acquired absence of other specified parts of digestive tract; Z98.890 Other specified postprocedural states

== ENCOUNTER 2020-09-26 14:23 | Emergency (ER) | payer OTHER ==
[~2020-09-26] VITALS: Wt 108.4 kg
== END 2020-09-26 17:10 | disposition home or self-care (01) ==
LOC: ED 14:23
DX: M76.62 Achilles tendinitis, left leg (principal); F17.200 Nicotine dependence, unspecified, uncomplicated; Z88.2 Allergy status to sulfonamides; Z88.1 Allergy status to other antibiotic agents; Z88.8 Allergy status to other drugs, medicaments and biological substances; Z88.0 Allergy status to penicillin; Z79.899 Other long term (current) drug therapy; Z79.2 Long term (current) use of antibiotics; Z90.49 Acquired absence of other specified parts of digestive tract; Z98.890 Other specified postprocedural states; Z90.711 Acquired absence of uterus with remaining cervical stump; Z98.61 Coronary angioplasty status

== ENCOUNTER → 2020-12-27 | Outpatient (CLI) | payer OTHER | END | disposition home or self-care (01) | LOC: RAD/SH 12-04 13:00 | PROVIDERS: ATTEND Internal Medicine | DX: R13.10 Dysphagia, unspecified (principal) ==

== ENCOUNTER → 2021-01-28 | Outpatient (CLI) | payer OTHER ==
[2021-01-28 13:02] LABS: BASO # 0.1 10*3/uL (0.0-0.1); BASO % 0.9 % (0.0-1.0); EOS # 0.4 10*3/uL (0.0-0.4); EOS % 4.8 % (1.0-4.0); LYMPH # 2.5 10*3/uL (1.3-4.4); LYMPH % 31.4 % (27.0-41.0); MEAN CELL VOLUME 85.8 fl (81.0-99.0); MEAN CORPUSCULAR HGB 24.9 pg (27.0-31.0); MEAN PLATELET VOLUME 11.3 fl (9.6-12.3); MONO # 0.5 10*3/uL (0.1-1.0); MONO % 6.6 % (3.0-9.0); NEUT # 4.5 10*3/uL (2.3-7.9); NEUT % 55.8 % (47.0-73.0); PLATELET COUNT AUTOMATED 256 10*3/uL (130-400); RED BLOOD COUNT 4.66 10*6/uL (4.10-5.10); RED CELL DISTRI WIDTH 16.6 % (0-14.5)
[2021-01-28 13:27] LABS: BUN 15 mg/dl (7-24); CHLORIDE 111 mmol/L (98-107); CREATININE 1.12 mg/dL (0.55-1.02); FREE T4 1.17 ng/dl (0.76-1.46); POTASSIUM 4.1 mmol/L (3.5-5.1); SODIUM 141 mmol/L (136-145)
== END | disposition home or self-care (01) ==
LOC: LAB 12:35
PROVIDERS: ATTEND Internal Medicine
DX: E03.9 Hypothyroidism, unspecified (principal); I95.1 Orthostatic hypotension; R42 Dizziness and giddiness

== ENCOUNTER 2021-03-16 15:54 | Emergency (ER) | payer OTHER ==
[~2021-03-16] VITALS: Ht 167.6 cm; Wt 127.0 kg
[2021-03-16 17:32] LABS: BASO # 0.1 10*3/uL (0.0-0.1); BASO % 0.5 % (0.0-1.0); EOS # 0.3 10*3/uL (0.0-0.4); EOS % 3.3 % (1.0-4.0); HEMATOCRIT 44.1 % (37.0-47.0); LYMPH # 2.6 10*3/uL (1.3-4.4); LYMPH % 27.5 % (27.0-41.0); MEAN CELL VOLUME 84.8 fl (81.0-99.0); MEAN CORPUSCULAR HGB 24.4 pg (27.0-31.0); MEAN CORPUSCULAR HGB CONC 28.8 g/dl (33.0-37.0); MEAN PLATELET VOLUME 11.5 fl (9.6-12.3); MONO # 0.8 10*3/uL (0.1-1.0); MONO % 7.9 % (3.0-9.0); NEUT # 5.7 10*3/uL (2.3-7.9); NEUT % 60.5 % (47.0-73.0); PLATELET COUNT AUTOMATED 274 10*3/uL (130-400); RED CELL DISTRI WIDTH 16.7 % (0-14.5); WHITE BLOOD COUNT 9.5 10*3/uL (4.8-10.8)
[2021-03-16 17:47] LABS: ALBUMIN 3.8 gm/dl (3.1-4.5); ALKALINE PHOSPHATASE 102 U/L (45-117); BUN 15 mg/dl (7-24); CHLORIDE 106 mmol/L (98-107); LIPASE 62 U/L (73-393); POTASSIUM 4.3 mmol/L (3.5-5.1); SGOT/AST 11 IU/L (3-35); SGPT/ALT 22 U/L (12-78); SODIUM 137 mmol/L (136-145); TOTAL PROTEIN 7.5 gm/dL (6.4-8.2)
[2021-03-16 18:05] LABS: INTERNATIONAL NORM RATIO 1.1 (2.0-3.5)
[2021-03-16] MEDS ORDERED: PEPCID20 MG PO (20:11)
[2021-03-16] MEDS ORDERED: PROTONIX20 MG PO (20:11)
== END 2021-03-16 20:30 | disposition home or self-care (01) ==
LOC: ED 15:54
PROVIDERS: Physician Assistant
DX: R10.13 Epigastric pain (principal); R11.10 Vomiting, unspecified; R53.83 Other fatigue; K21.9 Gastro-esophageal reflux disease without esophagitis; F17.200 Nicotine dependence, unspecified, uncomplicated; Z88.2 Allergy status to sulfonamides; Z88.1 Allergy status to other antibiotic agents; Z88.6 Allergy status to analgesic agent; Z88.0 Allergy status to penicillin; Z88.8 Allergy status to other drugs, medicaments and biological substances; Z79.899 Other long term (current) drug therapy; Z79.2 Long term (current) use of antibiotics; Z90.49 Acquired absence of other specified parts of digestive tract; Z98.890 Other specified postprocedural states; Z98.61 Coronary angioplasty status; Z90.710 Acquired absence of both cervix and uterus

== ENCOUNTER → 2021-05-10 | Outpatient (CLI) | payer OTHER ==
[~2021-05-10] MED LIST changes: +PEPCID20 MG PO
== END | disposition home or self-care (01) ==
LOC: US 04-17 09:30 → LAB 10:11 → US 10:30
PROVIDERS: ATTEND Internal Medicine
DX: E11.69 Type 2 diabetes mellitus with other specified complication (principal); K76.0 Fatty (change of) liver, not elsewhere classified; D73.89 Other diseases of spleen

== ENCOUNTER 2021-08-02 20:25 | Emergency (ER) | payer OTHER ==
[2021-08-02 20:59] LABS: BILIRUBIN Negative (Negative); BLOOD 3+ (Negative); CLARITY Turbid (Clear); COLOR Yellow (Yellow); GLUCOSE 3+ (Negative); KETONE Trace (Negative); LEUKO ESTERASE 2+ (Negative); NITRITE Negative (Negative); PH 5.5 (4.5-8.0); SPECIFIC GRAVITY >= 1.030 (1.001-1.030)
[2021-08-02 21:14] LABS: BACTERIA 2+; RBC TNTC rbc/hpf (0-2); WBC TNTC wbc/hpf (0-5)
[2021-08-02 22:16] LABS: BASO # 0.1 10*3/uL (0.0-0.1); BASO % 0.5 % (0.0-1.0); EOS # 0.4 10*3/uL (0.0-0.4); EOS % 3.2 % (1.0-4.0); HEMATOCRIT 38.1 % (37.0-47.0); LYMPH # 2.6 10*3/uL (1.3-4.4); LYMPH % 20.7 % (27.0-41.0); MEAN CELL VOLUME 83.4 fl (81.0-99.0); MEAN CORPUSCULAR HGB 25.2 pg (27.0-31.0); MEAN CORPUSCULAR HGB CONC 30.2 g/dl (33.0-37.0); MEAN PLATELET VOLUME 11.5 fl (9.6-12.3); MONO % 8.1 % (3.0-9.0); NEUT # 8.6 10*3/uL (2.3-7.9); NEUT % 67.2 % (47.0-73.0); PLATELET COUNT AUTOMATED 238 10*3/uL (130-400); RED BLOOD COUNT 4.57 10*6/uL (4.10-5.10); RED CELL DISTRI WIDTH 16.7 % (0-14.5); WHITE BLOOD COUNT 12.8 10*3/uL (4.8-10.8)
[2021-08-02 22:37] LABS: ALKALINE PHOSPHATASE 101 U/L (45-117); BUN 13 mg/dl (7-24); CHLORIDE 107 mmol/L (98-107); CREATININE 0.96 mg/dL (0.55-1.02); LIPASE 71 U/L (73-393); POTASSIUM 4.1 mmol/L (3.5-5.1); SGOT/AST 7 IU/L (3-35); SGPT/ALT 18 U/L (12-78); SODIUM 136 mmol/L (136-145); TOTAL PROTEIN 7.2 gm/dL (6.4-8.2)
[2021-08-03] MEDS ORDERED: METRONIDAZOLE500 M1 PO (03:27)
[2021-08-03] MEDS ORDERED: 'CIPRO500 M1 PO (03:27)
[2021-08-03] MEDS ORDERED: ULTRAM50 MG PO (03:33)
== END 2021-08-03 03:29 | disposition home or self-care (01) ==
LOC: ED 20:25
PROVIDERS: Emergency Medicine
DX: N39.0 Urinary tract infection, site not specified (principal); A59.9 Trichomoniasis, unspecified; K21.9 Gastro-esophageal reflux disease without esophagitis; I25.10 Atherosclerotic heart disease of native coronary artery without angina pectoris; E78.5 Hyperlipidemia, unspecified; J44.9 Chronic obstructive pulmonary disease, unspecified; I12.9 Hypertensive chronic kidney disease with stage 1 through stage 4 chronic kidney disease, or unspecified chronic kidney disease; E11.22 Type 2 diabetes mellitus with diabetic chronic kidney disease; N18.9 Chronic kidney disease, unspecified; Z79.899 Other long term (current) drug therapy; Z88.1 Allergy status to other antibiotic agents; Z88.0 Allergy status to penicillin; Z88.8 Allergy status to other drugs, medicaments and biological substances; F17.210 Nicotine dependence, cigarettes, uncomplicated; E66.01 Morbid (severe) obesity due to excess calories; Z90.49 Acquired absence of other specified parts of digestive tract; Z98.890 Other specified postprocedural states; Z90.710 Acquired absence of both cervix and uterus

== ENCOUNTER 2021-09-22 11:33 | Emergency (ER) | payer OTHER ==
[~2021-09-22] VITALS: Wt 99.8 kg
[~2021-09-22 11:33] MED LIST changes: +'CIPRO500 M1 PO; +METRONIDAZOLE500 M1 PO; +ULTRAM50 MG PO
== END 2021-09-22 13:35 | disposition home or self-care (01) ==
LOC: ED 11:33
DX: S49.91XA Unspecified injury of right shoulder and upper arm, initial encounter (principal); I25.10 Atherosclerotic heart disease of native coronary artery without angina pectoris; J44.9 Chronic obstructive pulmonary disease, unspecified; K21.9 Gastro-esophageal reflux disease without esophagitis; F17.210 Nicotine dependence, cigarettes, uncomplicated; E66.01 Morbid (severe) obesity due to excess calories; I12.9 Hypertensive chronic kidney disease with stage 1 through stage 4 chronic kidney disease, or unspecified chronic kidney disease; E11.22 Type 2 diabetes mellitus with diabetic chronic kidney disease; N18.30 Chronic kidney disease, stage 3 unspecified; N18.31 Chronic kidney disease, stage 3a; Z88.0 Allergy status to penicillin; Z88.1 Allergy status to other antibiotic agents; Z88.8 Allergy status to other drugs, medicaments and biological substances; Z79.899 Other long term (current) drug therapy; Z90.49 Acquired absence of other specified parts of digestive tract; Z98.890 Other specified postprocedural states; Z90.710 Acquired absence of both cervix and uterus; W18.39XA Other fall on same level, initial encounter; Y93.89 Activity, other specified; Y92.89 Other specified places as the place of occurrence of the external cause; Y99.8 Other external cause status

== ENCOUNTER → 2021-10-14 | Outpatient (CLI) | payer OTHER | END | disposition home or self-care (01) | LOC: CARD 10:30 | PROVIDERS: ATTEND Internal Medicine | DX: R00.1 Bradycardia, unspecified (principal) ==

== ENCOUNTER 2022-01-31 22:21 | Emergency (ER) | payer OTHER ==
[~2022-01-31] VITALS: Ht 167.6 cm; Wt 81.6 kg
[~2022-01-31 22:21] MED LIST changes: +METOPROLOL SUCC50 M1 PO; +Percocet 325 MG1 TAB PO; +TRULICITY1.5 MG/0.5 SC
[2022-01-31 23:37] LABS: BASO % 0.1 % (0.0-1.0); EOS % 0.1 % (1.0-4.0); HEMATOCRIT 38.5 % (37.0-47.0); LYMPH % 10.9 % (27.0-41.0); MEAN CELL VOLUME 86.3 fl (81.0-99.0); MEAN CORPUSCULAR HGB 26.9 pg (27.0-31.0); MEAN CORPUSCULAR HGB CONC 31.2 g/dl (33.0-37.0); MEAN PLATELET VOLUME 10.9 fl (9.6-12.3); MONO # 0.7 10*3/uL (0.1-1.0); MONO % 7.7 % (3.0-9.0); NEUT # 7.5 10*3/uL (2.3-7.9); PLATELET COUNT AUTOMATED 167 10*3/uL (130-400); RED BLOOD COUNT 4.46 10*6/uL (4.10-5.10); WHITE BLOOD COUNT 9.3 10*3/uL (4.8-10.8)
[2022-01-31 23:58] LABS: ALKALINE PHOSPHATASE 87 U/L (45-117); BUN 11 mg/dl (7-24); CHLORIDE 104 mmol/L (98-107); CREATININE 0.68 mg/dL (0.55-1.02); POTASSIUM 3.3 mmol/L (3.5-5.1); SGPT/ALT 19 U/L (12-78); SODIUM 137 mmol/L (136-145); TOTAL PROTEIN 7.1 gm/dL (6.4-8.2)
[2022-02-01] MEDS ORDERED: ONDANSETRON4 MG SL (03:02)
== END 2022-02-01 03:22 | disposition home or self-care (01) ==
LOC: ED 22:21
PROVIDERS: Internal Medicine
DX: B34.9 Viral infection, unspecified (principal); E87.6 Hypokalemia; Z88.0 Allergy status to penicillin; Z88.1 Allergy status to other antibiotic agents; Z88.8 Allergy status to other drugs, medicaments and biological substances; Z79.899 Other long term (current) drug therapy; Z90.49 Acquired absence of other specified parts of digestive tract; Z98.890 Other specified postprocedural states; Z90.710 Acquired absence of both cervix and uterus; Z87.891 Personal history of nicotine dependence

== ENCOUNTER → 2022-08-22 | Outpatient (CLI) | payer OTHER ==
[~2022-08-22] MED LIST changes: +LEVOFLOXACIN750 M2 PO; +ONDANSETRON4 MG SL
[2022-08-22 12:07] LABS: BUN 7 mg/dl (9-23); CHLORIDE 105 mmol/L (98-107); POTASSIUM 4.2 mmol/L (3.4-5.1); THYROID STIM HORMONE (HS) 0.855 uIU/ml (0.550-4.780)
== END | disposition home or self-care (01) ==
LOC: LAB 11:14
PROVIDERS: ATTEND Internal Medicine Cardiovascular Disease
DX: N18.9 Chronic kidney disease, unspecified (principal); R06.02 Shortness of breath; R00.2 Palpitations

== ENCOUNTER 2022-09-03 00:22 | Emergency (ER) | payer OTHER ==
[~2022-09-03] VITALS: Wt 89.4 kg
== END 2022-09-03 03:59 | disposition home or self-care (01) ==
LOC: ED 00:22
DX: M75.51 Bursitis of right shoulder (principal); J44.9 Chronic obstructive pulmonary disease, unspecified; E87.1 Hypo-osmolality and hyponatremia; D64.9 Anemia, unspecified; I25.10 Atherosclerotic heart disease of native coronary artery without angina pectoris; F41.8 Other specified anxiety disorders; K21.9 Gastro-esophageal reflux disease without esophagitis; E11.65 Type 2 diabetes mellitus with hyperglycemia; E11.22 Type 2 diabetes mellitus with diabetic chronic kidney disease; I12.9 Hypertensive chronic kidney disease with stage 1 through stage 4 chronic kidney disease, or unspecified chronic kidney disease; N18.9 Chronic kidney disease, unspecified; E87.8 Other disorders of electrolyte and fluid balance, not elsewhere classified; E87.6 Hypokalemia; Z88.2 Allergy status to sulfonamides; Z88.8 Allergy status to other drugs, medicaments and biological substances; Z88.1 Allergy status to other antibiotic agents; Z88.0 Allergy status to penicillin; F17.200 Nicotine dependence, unspecified, uncomplicated; Z90.49 Acquired absence of other specified parts of digestive tract; Z98.890 Other specified postprocedural states; Z90.710 Acquired absence of both cervix and uterus

== ENCOUNTER → 2022-09-18 | Outpatient (CLI) | payer OTHER | END | disposition home or self-care (01) | LOC: CARD 01:25 | PROVIDERS: ATTEND Internal Medicine Cardiovascular Disease | DX: I08.0 Rheumatic disorders of both mitral and aortic valves (principal); I10 Essential (primary) hypertension ==

== ENCOUNTER 2022-12-23 18:05 | Emergency (ER) | payer OTHER ==
[~2022-12-23] VITALS: Ht 167.6 cm; Wt 87.5 kg
== END 2022-12-23 21:20 | disposition home or self-care (01) ==
LOC: ED 18:05
DX: S92.351A Displaced fracture of fifth metatarsal bone, right foot, initial encounter for closed fracture (principal); K21.9 Gastro-esophageal reflux disease without esophagitis; F32.A Depression, unspecified; F41.9 Anxiety disorder, unspecified; I10 Essential (primary) hypertension; E78.00 Pure hypercholesterolemia, unspecified; E11.9 Type 2 diabetes mellitus without complications; J44.9 Chronic obstructive pulmonary disease, unspecified; Z88.2 Allergy status to sulfonamides; Z88.0 Allergy status to penicillin; Z88.1 Allergy status to other antibiotic agents; Z88.8 Allergy status to other drugs, medicaments and biological substances; Z90.49 Acquired absence of other specified parts of digestive tract; Z95.5 Presence of coronary angioplasty implant and graft; Z90.710 Acquired absence of both cervix and uterus; Z98.890 Other specified postprocedural states; F12.90 Cannabis use, unspecified, uncomplicated; F17.200 Nicotine dependence, unspecified, uncomplicated; W19.XXXA Unspecified fall, initial encounter; Y93.89 Activity, other specified; Y92.009 Unspecified place in unspecified non-institutional (private) residence as the place of occurrence of the external cause; Y99.8 Other external cause status

== ENCOUNTER → 2023-01-14 | Outpatient (CLI) | payer OTHER | END | disposition home or self-care (01) | LOC: ORTHO 02:37 | PROVIDERS: ATTEND Orthopaedic Surgery | DX: S92.352D Displaced fracture of fifth metatarsal bone, left foot, subsequent encounter for fracture with routine healing (principal); X58.XXXD Exposure to other specified factors, subsequent encounter ==

== ENCOUNTER 2023-06-21 17:53 | Emergency (ER) | payer OTHER ==
[~2023-06-21] VITALS: Ht 167.6 cm; Wt 85.3 kg
[2023-06-21] MEDS ORDERED: Albuterol Sulf/Ipratropium 3 ML VIAL NEB ONE (18:15)
[2023-06-21 18:31] LABS: BASO # 0.1 10*3/uL (0.0-0.1); BASO % 0.7 % (0.0-1.0); EOS # 0.4 10*3/uL (0.0-0.4); EOS % 3.8 % (1.0-4.0); HEMATOCRIT 41.5 % (37.0-47.0); LYMPH # 2.3 10*3/uL (1.3-4.4); LYMPH % 23.6 % (27.0-41.0); MEAN CELL VOLUME 92.4 fl (81.0-99.0); MEAN CORPUSCULAR HGB 27.8 pg (27.0-31.0); MEAN CORPUSCULAR HGB CONC 30.1 g/dl (33.0-37.0); MEAN PLATELET VOLUME 11.1 fl (9.6-12.3); MONO # 0.7 10*3/uL (0.1-1.0); MONO % 7.3 % (3.0-9.0); NEUT # 6.2 10*3/uL (2.3-7.9); NEUT % 64.3 % (47.0-73.0); PLATELET COUNT AUTOMATED 258 10*3/uL (130-400); RED BLOOD COUNT 4.49 10*6/uL (4.10-5.10); RED CELL DISTRI WIDTH 14.2 % (0-14.5); WHITE BLOOD COUNT 9.6 10*3/uL (4.8-10.8)
[2023-06-21 18:53] LABS: POTASSIUM 4.5 mmol/L (3.4-5.1)
[2023-06-21] MEDS ORDERED: methylPREDNISolone sod succ 125 MG VIAL IM ONE (20:45)
== END 2023-06-21 21:26 | disposition home or self-care (01) ==
LOC: ED 17:53
PROVIDERS: Internal Medicine
DX: R06.00 Dyspnea, unspecified (principal); J44.9 Chronic obstructive pulmonary disease, unspecified; J45.909 Unspecified asthma, uncomplicated; K21.9 Gastro-esophageal reflux disease without esophagitis; F32.A Depression, unspecified; F41.9 Anxiety disorder, unspecified; I12.9 Hypertensive chronic kidney disease with stage 1 through stage 4 chronic kidney disease, or unspecified chronic kidney disease; N18.32 Chronic kidney disease, stage 3b; E78.00 Pure hypercholesterolemia, unspecified; Z88.2 Allergy status to sulfonamides; Z88.1 Allergy status to other antibiotic agents; Z88.0 Allergy status to penicillin; Z88.8 Allergy status to other drugs, medicaments and biological substances; Z90.49 Acquired absence of other specified parts of digestive tract; Z95.5 Presence of coronary angioplasty implant and graft; Z90.710 Acquired absence of both cervix and uterus; F12.90 Cannabis use, unspecified, uncomplicated; F17.200 Nicotine dependence, unspecified, uncomplicated

== ENCOUNTER → 2023-07-03 | Outpatient (CLI) | payer OTHER ==
[2023-07-03 14:45] LABS: ALKALINE PHOSPHATASE 113 U/L (46-116); BUN 7 mg/dl (9-23); CHLORIDE 106 mmol/L (98-107); POTASSIUM 4.9 mmol/L (3.4-5.1); SGPT/ALT 16 U/L (5-49); TOTAL PROTEIN 7.3 gm/dL (6.0-8.0)
== END | disposition home or self-care (01) ==
LOC: LAB 14:05
PROVIDERS: ATTEND Internal Medicine Nephrology
DX: N17.9 Acute kidney failure, unspecified (principal)

== ENCOUNTER 2024-01-24 11:46 | Emergency (ER) | payer OTHER ==
[~2024-01-24] VITALS: Ht 167.6 cm; Wt 93.0 kg
[2024-01-24] MEDS ORDERED: METOPROLOL SUCC50 M1 PO (12:05)
[2024-01-24] MEDS ORDERED: METFORMIN XR500 MG PO (12:06)
[2024-01-24] MEDS ORDERED: LEVOTHYROXINE13 MCG PO (12:07)
[2024-01-24] MEDS ORDERED: VAZALORE81 MG PO (12:08)
[2024-01-24] MEDS ORDERED: OMEPRAZOLE40 MG PO (12:08)
[2024-01-24] MEDS ORDERED: ALDACTONE25 M1 PO (12:08)
[2024-01-24] MEDS ORDERED: VALIUM5 MG PO (12:09)
[2024-01-24] MEDS ORDERED: VITAMIN D310 MC2 PO (12:09)
[2024-01-24] MEDS ORDERED: LIPITOR40 MG PO (12:09)
[2024-01-24] MEDS ORDERED: PERCOCET 5-3251 EACH PO (12:10)
[2024-01-24] MEDS ORDERED: SODIUM CHLORIDE 0.9% 500 ML IV ONE (12:25)
[2024-01-24] MEDS ORDERED: Pantoprazole Sodium 40 MG VIAL IV ONE (12:25)
[2024-01-24] MEDS ORDERED: Ondansetron Hydrochloride 4 MG/2 ML VIAL IV ONE (12:25)
[2024-01-24 13:29] LABS: BASO # 0.1 10*3/uL (0.0-0.1); BASO % 0.8 % (0.0-1.0); EOS # 0.4 10*3/uL (0.0-0.4); HEMATOCRIT 38.6 % (37.0-47.0); MEAN CELL VOLUME 94.1 fl (81.0-99.0); MEAN CORPUSCULAR HGB 27.3 pg (27.0-31.0); MONO # 0.7 10*3/uL (0.1-1.0); MONO % 9.2 % (3.0-9.0); NEUT # 4.6 10*3/uL (2.3-7.9); NEUT % 59.9 % (47.0-73.0); PLATELET COUNT AUTOMATED 183 10*3/uL (130-400); RED CELL DISTRI WIDTH 15.7 % (0-14.5); WHITE BLOOD COUNT 7.7 10*3/uL (4.8-10.8)
[2024-01-24 13:46] LABS: ALKALINE PHOSPHATASE 109 U/L (46-116); BUN 10 mg/dl (9-23); CHLORIDE 111 mmol/L (98-107); LIPASE 30 U/L (12-53); SGPT/ALT 13 U/L (5-49); TOTAL PROTEIN 6.8 gm/dL (6.0-8.0)
[2024-01-24] MEDS ORDERED: Promethazine Hydrochloride 25 MG/ML VIAL IM ONE (13:55)
[2024-01-24] MEDS ORDERED: Lidocaine Hydrochloride 15 ML UDC PO STA (14:17)
[2024-01-24] MEDS ORDERED: MG-AL HYDROXIDE/SIMETICONE 30 ML UDC PO STA (14:17)
[2024-01-24] MEDS ORDERED: Dicyclomine Hydrochloride 20 MG/10 ML OSYR PO STA (14:17)
[2024-01-24 15:56] LABS: BILIRUBIN Negative (Negative); BLOOD Negative (Negative); CLARITY Clear (Clear); COLOR Yellow (Yellow); GLUCOSE 2+ (Negative); KETONE Negative (Negative); LEUKO ESTERASE Negative (Negative); NITRITE Negative (Negative); PH 5.5 (4.5-8.0)
[2024-01-24 16:07] LABS: BACTERIA TRACE
[2024-01-24] MEDS ORDERED: MIRALAX POWDER17 G1 PO (16:09)
[2024-01-24] MEDS ORDERED: Phenergan25 MG PO (16:09)
== END 2024-01-24 16:15 | disposition home or self-care (01) ==
LOC: ED 11:46
PROVIDERS: Nurse Practitioner Family
DX: K59.09 Other constipation (principal); R11.2 Nausea with vomiting, unspecified; Z88.2 Allergy status to sulfonamides; Z88.1 Allergy status to other antibiotic agents; Z88.0 Allergy status to penicillin; Z88.8 Allergy status to other drugs, medicaments and biological substances; J44.9 Chronic obstructive pulmonary disease, unspecified; E87.1 Hypo-osmolality and hyponatremia; I25.10 Atherosclerotic heart disease of native coronary artery without angina pectoris; F32.A Depression, unspecified; F41.9 Anxiety disorder, unspecified; K21.9 Gastro-esophageal reflux disease without esophagitis; E11.65 Type 2 diabetes mellitus with hyperglycemia; D63.1 Anemia in chronic kidney disease; E11.22 Type 2 diabetes mellitus with diabetic chronic kidney disease; I12.9 Hypertensive chronic kidney disease with stage 1 through stage 4 chronic kidney disease, or unspecified chronic kidney disease; N18.30 Chronic kidney disease, stage 3 unspecified; E87.6 Hypokalemia; Z90.49 Acquired absence of other specified parts of digestive tract; Z95.5 Presence of coronary angioplasty implant and graft; Z90.710 Acquired absence of both cervix and uterus; Z98.890 Other specified postprocedural states; F17.200 Nicotine dependence, unspecified, uncomplicated; F12.90 Cannabis use, unspecified, uncomplicated; E78.00 Pure hypercholesterolemia, unspecified

== ENCOUNTER 2024-05-28 18:57 | Emergency (ER) | payer OTHER ==
[~2024-05-28] VITALS: Ht 167.6 cm; Wt 103.4 kg
[~2024-05-28 18:57] MED LIST changes: +ALDACTONE25 M1 PO; +LEVOTHYROXINE13 MCG PO; +METFORMIN XR500 MG PO; +OMEPRAZOLE40 MG PO; +PERCOCET 5-3251 EACH PO; +Phenergan25 MG PO; +VALIUM5 MG PO; +VAZALORE81 MG PO; +VITAMIN D310 MC2 PO
[2024-05-28] MEDS ORDERED: MAGNESIUM CITRATE 296 ML BOT PO ONE (20:25)
== END 2024-05-28 20:38 | disposition home or self-care (01) ==
LOC: ED 18:57
DX: K59.00 Constipation, unspecified (principal); F17.200 Nicotine dependence, unspecified, uncomplicated; Z88.2 Allergy status to sulfonamides; Z88.1 Allergy status to other antibiotic agents; Z88.0 Allergy status to penicillin; Z79.899 Other long term (current) drug therapy; Z79.82 Long term (current) use of aspirin; Z90.710 Acquired absence of both cervix and uterus; Z90.49 Acquired absence of other specified parts of digestive tract; Z98.890 Other specified postprocedural states

== ENCOUNTER → 2024-06-14 | Outpatient (CLI) | payer OTHER | END | disposition home or self-care (01) | LOC: MAMMO 06-09 10:30 | PROVIDERS: ATTEND Internal Medicine | DX: Z12.31 Encounter for screening mammogram for malignant neoplasm of breast (principal); R92.313 Mammographic fatty tissue density, bilateral breasts ==

== ENCOUNTER 2024-06-20 22:39 | Emergency (ER) | payer OTHER ==
[~2024-06-20] VITALS: Ht 167.6 cm; Wt 102.1 kg
[2024-06-20] MEDS ORDERED: LORazepam 2 MG TAB PO ONE (23:00)
== END 2024-06-21 00:29 | disposition home or self-care (01) ==
LOC: ED 22:39
DX: F41.9 Anxiety disorder, unspecified (principal); F17.200 Nicotine dependence, unspecified, uncomplicated; Z88.2 Allergy status to sulfonamides; Z88.1 Allergy status to other antibiotic agents; Z88.0 Allergy status to penicillin; Z79.899 Other long term (current) drug therapy; Z79.82 Long term (current) use of aspirin; Z79.84 Long term (current) use of oral hypoglycemic drugs; Z90.49 Acquired absence of other specified parts of digestive tract; Z98.890 Other specified postprocedural states; Z90.710 Acquired absence of both cervix and uterus

== ENCOUNTER 2024-07-27 21:51 | Emergency (ER) | payer OTHER ==
[~2024-07-27] VITALS: Ht 167.6 cm; Wt 104.4 kg
[2024-07-27] MEDS ORDERED: Albuterol Sulf/Ipratropium 3 ML VIAL NEB ONE (22:20)
[2024-07-27] MEDS ORDERED: Lidocaine Hydrochloride 15 ML UDC PO STA (23:35)
[2024-07-27] MEDS ORDERED: Dicyclomine Hydrochloride 20 MG/10 ML OSYR PO STA (23:35)
[2024-07-27] MEDS ORDERED: MG-AL HYDROXIDE/SIMETICONE 30 ML UDC PO STA (23:35)
[2024-07-27] MEDS ORDERED: LORazepam 1 MG TAB PO ONE (23:55)
== END 2024-07-28 00:17 | disposition home or self-care (01) ==
LOC: ED 21:51
DX: K21.9 Gastro-esophageal reflux disease without esophagitis (principal); F41.9 Anxiety disorder, unspecified; I10 Essential (primary) hypertension; J45.909 Unspecified asthma, uncomplicated; F32.A Depression, unspecified; E78.00 Pure hypercholesterolemia, unspecified; E11.9 Type 2 diabetes mellitus without complications; F17.200 Nicotine dependence, unspecified, uncomplicated; Z79.82 Long term (current) use of aspirin; Z79.899 Other long term (current) drug therapy; Z88.0 Allergy status to penicillin; Z88.2 Allergy status to sulfonamides; Z88.8 Allergy status to other drugs, medicaments and biological substances; Z90.49 Acquired absence of other specified parts of digestive tract; Z90.710 Acquired absence of both cervix and uterus; Z98.890 Other specified postprocedural states

== ENCOUNTER 2024-08-03 22:47 | Emergency (ER) | payer OTHER ==
[~2024-08-03] VITALS: Ht 167.6 cm; Wt 104.3 kg
[2024-08-03 23:26] LABS: BASO # 0.1 10*3/uL (0.0-0.1); BASO % 0.6 % (0.0-1.0); EOS # 0.5 10*3/uL (0.0-0.4); EOS % 4.8 % (1.0-4.0); HEMATOCRIT 34.7 % (37.0-47.0); MEAN CELL VOLUME 88.7 fl (81.0-99.0); MEAN CORPUSCULAR HGB 27.4 pg (27.0-31.0); MEAN CORPUSCULAR HGB CONC 30.8 g/dl (33.0-37.0); MEAN PLATELET VOLUME 11.2 fl (9.6-12.3); MONO # 0.6 10*3/uL (0.1-1.0); MONO % 5.6 % (3.0-9.0); NEUT # 6.4 10*3/uL (2.3-7.9); NEUT % 59.9 % (47.0-73.0); PLATELET COUNT AUTOMATED 265 10*3/uL (130-400); RED BLOOD COUNT 3.91 10*6/uL (4.10-5.10); RED CELL DISTRI WIDTH 15.6 % (0-14.5); WHITE BLOOD COUNT 10.6 10*3/uL (4.8-10.8)
[2024-08-03 23:47] LABS: ALKALINE PHOSPHATASE 126 U/L (46-116); BUN 12 mg/dl (9-23); CHLORIDE 103 mmol/L (98-107); LIPASE 29 U/L (12-53); POTASSIUM 3.7 mmol/L (3.4-5.1); SGPT/ALT 15 U/L (5-49); TOTAL PROTEIN 6.7 gm/dL (6.0-8.0)
[2024-08-04] MEDS ORDERED: Lidocaine Hydrochloride 15 ML UDC PO STA (00:52)
[2024-08-04] MEDS ORDERED: MG-AL HYDROXIDE/SIMETICONE 30 ML UDC PO STA (00:52)
[2024-08-04] MEDS ORDERED: Dicyclomine Hydrochloride 20 MG/10 ML OSYR PO STA (00:52)
== END 2024-08-04 01:04 | disposition home or self-care (01) ==
LOC: ED 22:47
PROVIDERS: Internal Medicine
DX: K21.9 Gastro-esophageal reflux disease without esophagitis (principal); F41.9 Anxiety disorder, unspecified; D64.9 Anemia, unspecified; I12.9 Hypertensive chronic kidney disease with stage 1 through stage 4 chronic kidney disease, or unspecified chronic kidney disease; E11.22 Type 2 diabetes mellitus with diabetic chronic kidney disease; N18.9 Chronic kidney disease, unspecified; E11.65 Type 2 diabetes mellitus with hyperglycemia; E78.00 Pure hypercholesterolemia, unspecified; F32.A Depression, unspecified; F17.200 Nicotine dependence, unspecified, uncomplicated; Z79.82 Long term (current) use of aspirin; Z79.899 Other long term (current) drug therapy; Z88.0 Allergy status to penicillin; Z88.1 Allergy status to other antibiotic agents; Z88.2 Allergy status to sulfonamides; Z88.8 Allergy status to other drugs, medicaments and biological substances; Z90.49 Acquired absence of other specified parts of digestive tract; Z90.710 Acquired absence of both cervix and uterus; Z98.890 Other specified postprocedural states

== ENCOUNTER → 2024-08-12 | Outpatient (CLI) | payer OTHER | END | disposition home or self-care (01) | LOC: LAB 15:16 | PROVIDERS: ATTEND Internal Medicine | DX: J02.9 Acute pharyngitis, unspecified (principal) ==

== ENCOUNTER 2024-08-16 22:16 | Emergency (ER) | payer OTHER ==
[~2024-08-16] VITALS: Ht 167.6 cm; Wt 103.9 kg
[2024-08-16] MEDS ORDERED: SODIUM CHLORIDE 0.9% 500 ML IV ONE (23:00)
[2024-08-16] MEDS ORDERED: Metoclopramide Hydrochloride 10 MG/2 ML VIAL IV ONE (23:05)
[2024-08-16] MEDS ORDERED: diphenhydrAMINE hydrochloride 50 MG/ML VIAL IV ONE (23:05)
[2024-08-16] MEDS ORDERED: Pantoprazole Sodium 40 MG VIAL IV ONE (23:05)
[2024-08-16] MEDS ORDERED: Glucagon Hydrochloride 1 MG SYR IV ONE (23:05)
[2024-08-16 23:45] LABS: POTASSIUM 3.7 mmol/L (3.4-5.1); TOTAL PROTEIN 6.2 gm/dL (6.0-8.0)
[2024-08-17 00:02] LABS: BASO # 0.1 10*3/uL (0.0-0.1); BASO % 0.7 % (0.0-1.0); EOS # 0.4 10*3/uL (0.0-0.4); HEMATOCRIT 34.1 % (37.0-47.0); MEAN CORPUSCULAR HGB 26.9 pg (27.0-31.0); MEAN CORPUSCULAR HGB CONC 29.9 g/dl (33.0-37.0); MEAN PLATELET VOLUME 11.2 fl (9.6-12.3); MONO # 0.7 10*3/uL (0.1-1.0); MONO % 8.1 % (3.0-9.0); NEUT # 5.4 10*3/uL (2.3-7.9); NEUT % 58.4 % (47.0-73.0); PLATELET COUNT AUTOMATED 239 10*3/uL (130-400); RED BLOOD COUNT 3.79 10*6/uL (4.10-5.10); RED CELL DISTRI WIDTH 15.6 % (0-14.5); WHITE BLOOD COUNT 9.2 10*3/uL (4.8-10.8)
[2024-08-17] MEDS ORDERED: CARAFATE1 G1 PO (00:21)
[2024-08-17] MEDS ORDERED: PROTONIX40 MG PO (00:21)
[2024-08-17] MEDS ORDERED: Ondansetron4 MG PO (00:21)
[2024-08-17] MEDS ORDERED: RELISTOR12 MG/0.1 SC (00:21)
== END 2024-08-17 00:57 | disposition home or self-care (01) ==
LOC: ED 22:16
PROVIDERS: Emergency Medicine
DX: K59.03 Drug induced constipation (principal); T40.2X5A Adverse effect of other opioids, initial encounter; K20.90 Esophagitis, unspecified without bleeding; Z88.2 Allergy status to sulfonamides; Z88.0 Allergy status to penicillin; Z79.899 Other long term (current) drug therapy; Z79.82 Long term (current) use of aspirin; Z79.84 Long term (current) use of oral hypoglycemic drugs; Z90.49 Acquired absence of other specified parts of digestive tract; Z90.711 Acquired absence of uterus with remaining cervical stump; Z98.890 Other specified postprocedural states; Z87.891 Personal history of nicotine dependence; Y92.89 Other specified places as the place of occurrence of the external cause

== ENCOUNTER 2024-08-22 18:09 | Emergency (ER) | payer OTHER ==
[~2024-08-22] VITALS: Ht 167.6 cm; Wt 113.4 kg
[~2024-08-22 18:09] MED LIST changes: +Ondansetron4 MG PO; +RELISTOR12 MG/0.1 SC
[2024-08-22 20:16] LABS: BASO # 0.1 10*3/uL (0.0-0.1); BASO % 0.7 % (0.0-1.0); EOS # 0.4 10*3/uL (0.0-0.4); EOS % 3.2 % (1.0-4.0); HEMATOCRIT 36.5 % (37.0-47.0); MEAN CELL VOLUME 91.5 fl (81.0-99.0); MEAN CORPUSCULAR HGB 26.8 pg (27.0-31.0); MEAN CORPUSCULAR HGB CONC 29.3 g/dl (33.0-37.0); MEAN PLATELET VOLUME 11.1 fl (9.6-12.3); MONO # 0.8 10*3/uL (0.1-1.0); MONO % 7.4 % (3.0-9.0); NEUT # 7.2 10*3/uL (2.3-7.9); NEUT % 64.8 % (47.0-73.0); PLATELET COUNT AUTOMATED 232 10*3/uL (130-400); RED BLOOD COUNT 3.99 10*6/uL (4.10-5.10); RED CELL DISTRI WIDTH 15.8 % (0-14.5); WHITE BLOOD COUNT 11.1 10*3/uL (4.8-10.8)
[2024-08-22 20:37] LABS: ALKALINE PHOSPHATASE 111 U/L (46-116); BUN 11 mg/dl (9-23); CHLORIDE 105 mmol/L (98-107); POTASSIUM 3.9 mmol/L (3.4-5.1); SGPT/ALT 12 U/L (5-49); TOTAL PROTEIN 6.9 gm/dL (6.0-8.0)
[2024-08-22] MEDS ORDERED: ACETAMINOPHEN 325 MG TAB PO ONE (22:05)
[2024-08-22] MEDS ORDERED: ZITHROMAX250 MG PO (23:19)
== END 2024-08-22 23:40 | disposition home or self-care (01) ==
LOC: ED 18:09
PROVIDERS: Emergency Medicine
DX: K20.90 Esophagitis, unspecified without bleeding (principal); J02.0 Streptococcal pharyngitis; I12.9 Hypertensive chronic kidney disease with stage 1 through stage 4 chronic kidney disease, or unspecified chronic kidney disease; E11.22 Type 2 diabetes mellitus with diabetic chronic kidney disease; N18.9 Chronic kidney disease, unspecified; K21.9 Gastro-esophageal reflux disease without esophagitis; F32.A Depression, unspecified; F41.9 Anxiety disorder, unspecified; E78.00 Pure hypercholesterolemia, unspecified; Z79.82 Long term (current) use of aspirin; Z79.899 Other long term (current) drug therapy; Z88.0 Allergy status to penicillin; Z88.2 Allergy status to sulfonamides; Z88.6 Allergy status to analgesic agent; Z88.8 Allergy status to other drugs, medicaments and biological substances; Z90.49 Acquired absence of other specified parts of digestive tract; Z90.710 Acquired absence of both cervix and uterus; Z98.890 Other specified postprocedural states

== ENCOUNTER → 2024-08-24 | Outpatient (CLI) | payer OTHER | END | disposition home or self-care (01) | LOC: LAB 14:46 | PROVIDERS: ATTEND Internal Medicine | DX: D50.9 Iron deficiency anemia, unspecified (principal) ==

== ENCOUNTER 2024-09-06 16:44 | Emergency (ER) | payer OTHER ==
[~2024-09-06] VITALS: Ht 167.6 cm; Wt 103.4 kg
[2024-09-06 18:41] LABS: BASO # 0.1 10*3/uL (0.0-0.1); BASO % 0.8 % (0.0-1.0); EOS # 0.4 10*3/uL (0.0-0.4); EOS % 3.9 % (1.0-4.0); MEAN CELL VOLUME 90.2 fl (81.0-99.0); MEAN CORPUSCULAR HGB 27.6 pg (27.0-31.0); MEAN PLATELET VOLUME 11.2 fl (9.6-12.3); MONO # 0.9 10*3/uL (0.1-1.0); MONO % 8.9 % (3.0-9.0); NEUT # 6.1 10*3/uL (2.3-7.9); NEUT % 60.9 % (47.0-73.0); NUCLEATED RED BLOOD CELL 0.0 % (0.0-0.0); NUCLEATED RED BLOOD CELL 0.0 10*3/uL (0.0-0.0); PLATELET COUNT AUTOMATED 247 10*3/uL (130-400); RED CELL DISTRI WIDTH 16.1 % (0-14.5)
[2024-09-06 19:00] LABS: BUN 11 mg/dl (9-23)
[2024-09-09] MEDS ORDERED: ENTRESTO 24 MG1 EACH PO (21:37)
[2024-09-09] MEDS ORDERED: IRON325 M1 PO (21:39)
[2024-09-09] MEDS ORDERED: TRULICITY0.75 MG/0. SC (22:11)
[2024-09-09] MEDS ORDERED: LINZESS290 MC1 PO (22:11)
[2024-09-09] MEDS ORDERED: PIOGLITAZONE HC45 MG PO (22:12)
[2024-09-09] MEDS ORDERED: LORAZEPAM1 MG PO (22:13)
== END 2024-09-06 22:11 | disposition left against medical advice (07) ==
LOC: ED 16:44
PROVIDERS: Internal Medicine
DX: R09.A2 Foreign body sensation, throat (principal); R55 Syncope and collapse; F41.9 Anxiety disorder, unspecified; Z88.2 Allergy status to sulfonamides; Z88.1 Allergy status to other antibiotic agents; Z88.0 Allergy status to penicillin; Z79.899 Other long term (current) drug therapy; Z79.82 Long term (current) use of aspirin; Z90.49 Acquired absence of other specified parts of digestive tract; Z98.890 Other specified postprocedural states; Z90.711 Acquired absence of uterus with remaining cervical stump; Z87.891 Personal history of nicotine dependence

== ENCOUNTER 2024-11-14 14:33 | Emergency (ER) | payer OTHER ==
[~2024-11-14] VITALS: Ht 167.6 cm; Wt 97.5 kg
[~2024-11-14 14:33] MED LIST changes: +COLACE100 MG PO; +ENTRESTO 24 MG1 EACH PO; +IRON325 M1 PO; +LINZESS290 MC1 PO; +LORAZEPAM1 MG PO; +PIOGLITAZONE HC45 MG PO; +TOPROL XL50 M1 PO; +TRULICITY0.75 MG/0. SC
[2024-11-14] MEDS ORDERED: Dicyclomine Hydrochloride 20 MG/10 ML OSYR PO STA (15:42)
[2024-11-14] MEDS ORDERED: MG-AL HYDROXIDE/SIMETICONE 30 ML UDC PO STA (15:42)
== END 2024-11-14 16:35 | disposition home or self-care (01) ==
LOC: ED 14:33
DX: K21.9 Gastro-esophageal reflux disease without esophagitis (principal); I12.9 Hypertensive chronic kidney disease with stage 1 through stage 4 chronic kidney disease, or unspecified chronic kidney disease; N18.30 Chronic kidney disease, stage 3 unspecified; I25.10 Atherosclerotic heart disease of native coronary artery without angina pectoris; J44.9 Chronic obstructive pulmonary disease, unspecified; F32.A Depression, unspecified; F41.9 Anxiety disorder, unspecified; E78.5 Hyperlipidemia, unspecified; F17.200 Nicotine dependence, unspecified, uncomplicated; Z88.2 Allergy status to sulfonamides; Z88.1 Allergy status to other antibiotic agents; Z88.0 Allergy status to penicillin; Z79.899 Other long term (current) drug therapy; Z79.82 Long term (current) use of aspirin; Z79.84 Long term (current) use of oral hypoglycemic drugs; Z90.49 Acquired absence of other specified parts of digestive tract; Z98.890 Other specified postprocedural states; Z90.710 Acquired absence of both cervix and uterus

== ENCOUNTER 2024-11-21 06:10 | Emergency (ER) | payer OTHER ==
[~2024-11-21] VITALS: Ht 167.6 cm; Wt 95.3 kg
[2024-11-21] MEDS ORDERED: METHOCARBAMOL 750 MG TAB PO ONE (06:40)
[2024-11-21] MEDS ORDERED: PREDNISONE20 M1 PO (07:25)
[2024-11-21] MEDS ORDERED: METHOCARBAMOL750 M1 PO (07:25)
== END 2024-11-21 07:39 | disposition home or self-care (01) ==
LOC: ED 06:10
DX: S29.012A Strain of muscle and tendon of back wall of thorax, initial encounter (principal); M25.512 Pain in left shoulder; J45.909 Unspecified asthma, uncomplicated; K21.9 Gastro-esophageal reflux disease without esophagitis; F32.A Depression, unspecified; F41.9 Anxiety disorder, unspecified; I10 Essential (primary) hypertension; E78.00 Pure hypercholesterolemia, unspecified; E11.9 Type 2 diabetes mellitus without complications; Z90.49 Acquired absence of other specified parts of digestive tract; Z98.890 Other specified postprocedural states; Z90.710 Acquired absence of both cervix and uterus; Z88.0 Allergy status to penicillin; Z88.1 Allergy status to other antibiotic agents; Z88.8 Allergy status to other drugs, medicaments and biological substances; X58.XXXA Exposure to other specified factors, initial encounter; Y93.89 Activity, other specified; Y92.89 Other specified places as the place of occurrence of the external cause; Y99.8 Other external cause status

== ENCOUNTER → 2024-11-22 | Outpatient (CLI) | payer OTHER ==
[~2024-11-22] MED LIST changes: +METHOCARBAMOL750 M1 PO; +PREDNISONE20 M1 PO
== END | disposition home or self-care (01) ==
LOC: RAD 12:42
PROVIDERS: ATTEND Internal Medicine
DX: M47.812 Spondylosis without myelopathy or radiculopathy, cervical region (principal); M48.02 Spinal stenosis, cervical region; M25.512 Pain in left shoulder

== ENCOUNTER → 2024-12-06 | Outpatient (CLI) | payer OTHER | END | disposition home or self-care (01) | LOC: CARD 02:30 | PROVIDERS: ATTEND Internal Medicine Cardiovascular Disease | DX: I34.0 Nonrheumatic mitral (valve) insufficiency (principal); R06.09 Other forms of dyspnea ==

== ENCOUNTER 2024-12-31 15:57 | Emergency (ER) | payer OTHER ==
[~2024-12-31] VITALS: Ht 167.6 cm; Wt 97.5 kg
[~2024-12-31 15:57] MED LIST changes: +CIPROFLOX-DEXA7.5 ML OT
[2024-12-31] MEDS ORDERED: MAGNESIUM SULFATE 50 ML IV ONE (16:15)
[2024-12-31 16:35] LABS: BASO # 0.1 10*3/uL (0.0-0.1); BASO % 0.6 % (0.0-1.0); EOS # 0.4 10*3/uL (0.0-0.4); EOS % 3.5 % (1.0-4.0); MEAN CELL VOLUME 86.0 fl (81.0-99.0); MEAN CORPUSCULAR HGB 25.3 pg (27.0-31.0); MEAN PLATELET VOLUME 10.6 fl (9.6-12.3); MONO # 0.9 10*3/uL (0.1-1.0); MONO % 8.0 % (3.0-9.0); NEUT # 7.2 10*3/uL (2.3-7.9); NEUT % 62.3 % (47.0-73.0); NUCLEATED RED BLOOD CELL 0.0 % (0.0-0.0); NUCLEATED RED BLOOD CELL 0.0 10*3/uL (0.0-0.0); PLATELET COUNT AUTOMATED 353 10*3/uL (130-400); RED CELL DISTRI WIDTH 15.1 % (0-14.5)
[2024-12-31 16:58] LABS: BUN 19.0 mg/dl (9-23)
[2024-12-31] MEDS ORDERED: VIBRAMYCIN100 MG PO (17:18)
[2024-12-31] MEDS ORDERED: PREDNISONE20 M1 PO (17:18)
[2024-12-31] MEDS ORDERED: Ondansetron Hydrochloride 4 MG/2 ML VIAL IV ONE (17:55)
== END 2024-12-31 18:30 | disposition home or self-care (01) ==
LOC: ED 15:57
PROVIDERS: Emergency Medicine
DX: J44.1 Chronic obstructive pulmonary disease with (acute) exacerbation (principal); K21.9 Gastro-esophageal reflux disease without esophagitis; F32.A Depression, unspecified; F41.9 Anxiety disorder, unspecified; I10 Essential (primary) hypertension; E78.00 Pure hypercholesterolemia, unspecified; E11.9 Type 2 diabetes mellitus without complications; F17.210 Nicotine dependence, cigarettes, uncomplicated; Z98.890 Other specified postprocedural states; Z90.49 Acquired absence of other specified parts of digestive tract; Z90.710 Acquired absence of both cervix and uterus; Z88.1 Allergy status to other antibiotic agents; Z88.0 Allergy status to penicillin; Z88.8 Allergy status to other drugs, medicaments and biological substances

== ENCOUNTER 2025-02-08 07:48 | Emergency (ER) | payer OTHER ==
[~2025-02-08] VITALS: Wt 99.3 kg
[~2025-02-08 07:48] MED LIST changes: +CARVEDILOL12.5 MG PO; +DOXYCYCLINE HY100 M3 PO; +GAVISCON ES TA1 EACH PO; +PREVACID30 M2 PO; +PROTONIX IV40 MG IV; +REMERON15 M2 PO
[2025-02-08] MEDS ORDERED: CYCLOBENZAPRINE10 MG PO (10:04)
== END 2025-02-08 10:25 | disposition home or self-care (01) ==
LOC: ED 07:48
DX: M62.838 Other muscle spasm (principal); J45.909 Unspecified asthma, uncomplicated; K21.9 Gastro-esophageal reflux disease without esophagitis; F32.A Depression, unspecified; F41.9 Anxiety disorder, unspecified; I10 Essential (primary) hypertension; E78.00 Pure hypercholesterolemia, unspecified; E11.9 Type 2 diabetes mellitus without complications; Z90.710 Acquired absence of both cervix and uterus; Z98.890 Other specified postprocedural states; Z90.49 Acquired absence of other specified parts of digestive tract; Z88.0 Allergy status to penicillin; Z88.1 Allergy status to other antibiotic agents; Z88.8 Allergy status to other drugs, medicaments and biological substances